=== PATIENT | male | born 1940 | race Caucasian/White ===

== ENCOUNTER → 2018-09-18 09:44 | Outpatient (BNVA) | payer MEDICARE, SELFPAY | PROVIDERS: PCP Family Medicine; Referring Provider Family Medicine; Visit Provider Orthopaedic Surgery | DX: M17.0 Bilateral primary osteoarthritis of knee (principal) | CPT/HCPCS: 20610; 99211; 99213; J3304; J3490; J7318 ==

== ENCOUNTER 2018-11-17 09:18 | Outpatient (CLI) | payer MEDICARE, SELFPAY ==
[2018-11-17 09:50] LABS: Abs Immature Grans 0.02 k/cumm (0.0-0.09); Absolute Basophil Count 0.03 k/cumm (0.0-0.2); Absolute Eosinophil Count 0.27 k/cumm (0.0-0.7); Absolute Lymphocyte Count 0.69 k/cumm (1.2-3.4); Absolute Monocyte Count 0.45 k/cumm (0.11-0.7); Absolute Neutrophil Count 3.29 k/cumm (1.2-6.7); Basophils % 0.6; Eosinophils % 5.7; HCT 43.9 % (40.0-50.0); HGB 14.6 g/dL (13.5-17.5); Immature Grans % 0.4; Lymphocytes % 14.5; Mean Corp. HGB Concentration 33.3 g/dL (32.0-36.0); Mean Corpuscular Hemoglobin 30.2 pg (27.0-33.0); Mean Corpuscular Volume 90.7 fL (80-95); Monocytes % 9.5; Neutrophils % 69.3; Platelet Count 171 x1000/uL (130-400); RBC 4.84 m/cumm (4.50-6.00); RBC Distribution Width 13.6 % (11.8-14.1); White Blood Cell Count 4.75 k/cumm (4.4-10.8)
[2018-11-17 10:49] LABS: Iron 93 ug/dL (50-175); Total Iron Binding Capacity 319 ug/dL (250-450); Transferrin Sat 29 % (20-55)
[2018-11-17 11:18] LABS: ALT 26 U/L (12-78); AST 19 U/L (15-37); Albumin 3.5 g/dL (3.4-5.0); Alkaline Phosphatase 114 U/L (46-116); Anion Gap 6.8 mmol/L (3-11); BUN 16 mg/dL (7-18); Bilirubin, Total 0.5 mg/dL (0.2-1.0); CO2 30.2 mmol/L (21.0-32.0); CREATININE 1.05 mg/dL (0.70-1.30); Chloride 104 mmol/L (98-107); Cholesterol 227 mg/dL (50-200); Ferritin 275 ng/mL (8-388); Glucose 94 mg/dL (70-100); HDL Cholesterol 65 mg/dL (40-60); LDL CHOLESTEROL 142 mg/dL (<100); Potassium 4.4 mmol/L (3.5-5.1); Sodium 141 mmol/L (136-145); T4 7.3 ug/dL (4.5-12.5); TSH 2.32 uIU/mL (0.358-3.74); Triglyceride 110 mg/dL (30-150); Vitamin B12 829 pg/mL (193-986)
[2018-11-17 11:19] LABS: Folate > 20.0 ng/mL (8.6-20.0)
[2018-11-17 11:38] LABS: FREE T4 0.93 ng/dL (0.76-1.46)
[2018-11-17 17:16] LABS: T3,Free 3.3 pg/ml (2.8-5.3)
[2018-11-17 17:30] LABS: T3, Total 120 ng/dl (97-169)
[2018-11-19 15:46] LABS: Testosterone, Free 5.72 ng/dL (3.08-11.3); Testosterone, Total 381 ng/dL (240-950)
== END 2018-11-17 09:38 ==
PROVIDERS: PCP Family Medicine; Visit Provider Nurse Practitioner Psychiatric/Mental Health
DX: F33.1 Major depressive disorder, recurrent, moderate (principal); Z79.899 Other long term (current) drug therapy; R79.89 Other specified abnormal findings of blood chemistry
CPT/HCPCS: 36415; 80053; 80061; 82306; 83721; 84402; 84403; 82607; 82728; 82746; 83540; 83550; 84436; 84439; 84443; 84480; 84481; 85025

== ENCOUNTER 2019-02-13 02:08 | Outpatient (CLI) | payer MEDICARE, SELFPAY ==
--- NOTE | 2019-02-13 13:00 | ETT_ITS ---
*[facility]* *[facility]* [address] [place] [address] Stress Electrocardiography Sukhdeep protocol Date of study: 02/13/2019 *PATIENT PRESENTATION* Height: 180.3cm (71in) Blood Pressure: Weight: 77.3kg (170lb) BSA: 1.97m^2 Referring physician: Aj Pendleton Ordering physician: Aj Pendleton Impressions: Normal study after maximal exercise. Summary: 1. Stress: The target heart rate was achieved. Indication: R06.02. History: REASON FOR VISIT: PT REPORTS HIS PCP ORDERED THIS STRESS TEST BECAUSE HE IS FEELING MORE EASILY SHORT OF BREATH AND FATIGUED. HE HAS OCCASIONAL SUBSTERNAL CHEST PAINS AT NIGHT WHILE LYING IN THE BED HE STATES IT GOES AWAY WITH POSITION CHANGE. Risk factors: Dyslipidemia. Cholesterol: 227mg/dl. HDL: 65mg/dl. LDL: 142mg/dl. Triglycerides: 110mg/dl. ALLERGIES: NO KNOWN ALLERGIES. MEDICATIONS: TAMSULOSIN 0.4 MG EVERY OTHER DAY. OMEPRAZOLE 40 MG DAILY. OMEGA-3 FATTY ACIDS-FISH OIL 1 DAILY. LORAZEPAM 0.5 MG AT HS PRN. FLUOXETINE 20 MG DAILY. CYANOCOBALAMIN 1,000 MCG DAILY. CHOLECALCIFEROL 1,000 UNITS DAILY. ASPIRIN 81 MG DAILY. CENTRUM SILVER 1 CAP DAILY. Protocol: Sukhdeep protocol. Baseline ECG: SINUS BRADYCARDIA. HR 58 BPM. Stress protocol: + +---+ + !Stage !HR !BP (mmHg) ! + +---+ + !Baseline supine !58 !180/80 (113)! + +---+ + !Baseline standing !80 !142/78 (99) ! + +---+ + !Stage I; 1.7mph, 10degrees; 3 min !103!180/86 (117)! + +---+ + !Stage II; 2.5mph, 12degrees; 3 min!119!188/80 (116)! + +---+ + !Peak stress !129! ! + +---+ + !Recovery; 3 min !88 !208/90 (129)! + +---+ + !Recovery; 6 min !70 !176/78 (111)! + +---+ + * Stress results: Maximal heart rate during stress was 129bpm (91% of maximal predicted heart rate). The maximal predicted heart rate was 141bpm. The target heart rate was achieved. The rate-pressure product for the peak heart rate and blood pressure was 90140hj Hg/min. Stress ECG: EXERCISE PORTION OF STRESS TEST ENDED IN 7 MINUTES DUE TO SHORTNESS OF BREATH AND FATIGUE. SYSTOLIC BLOOD PRESSURE DROP OF 38 mmHg FROM SUPINE TO STANDING. NORMAL HEART RATE RESPONSE TO EXERCISE. MAX HR = 129 % OF TARGET = 91 OCCASIONAL PVCs. OCCASIONAL VENTRICULAR COUPLETS. OCCASIONAL PACs. APPROXIMATE METS ACHIEVED = 8.[address] SEGMENT CHANGES AVERAGE FUNCTIONAL CAPACITY FOR EXERCISE. Study data: Vladimir Black MD supervised and was readily available during the procedure. This study was interpreted by [facility]. Study status: Routine. Consent: The risks, benefits, and alternatives to the procedure were explained to the patient and informed consent was obtained. Procedure: Initial setup. A baseline ECG was recorded. Surface ECG leads and manual cuff blood pressure measurements were monitored. Heart sounds: Normal. Lung sounds: Normal. Treadmill exercise testing was performed using the Sukhdeep protocol. Study completion: The patient tolerated the procedure well and was discharged from the lab. Discharge: The patient left the laboratory in stable condition. Birthdate: Patient birthdate: 1940. Sex: Gender: male. Study date: Study date: 02/13/2019. Study time: 00:01 AM. Signature Documentation: The Stress ECG portion of this study was interpreted by Vladimir Black MD. Electronically signed by Vladimir Black 02/13/2019 14:57
== END 2019-02-13 02:28 ==
PROVIDERS: PCP Family Medicine; Visit Provider Family Medicine
DX: R06.02 Shortness of breath (principal); R07.89 Other chest pain; R53.83 Other fatigue; E78.5 Hyperlipidemia, unspecified
CPT/HCPCS: 93016; 93018; 93017

== ENCOUNTER 2019-02-17 01:15 | Outpatient (RCR) | payer MEDICARE, SELFPAY ==
[2019-02-17] MEDS: Normal Saline Flush 10 ML SYR IVP (07:14)
[2019-02-17] MEDS: Cosyntropin 0.25 MG VIAL IV (07:14)
== END 2019-02-17 23:59 | disposition home or self-care (01) ==
LOC: INF 01:15
PROVIDERS: PCP Family Medicine; Visit Provider Family Medicine
DX: E24.3 Ectopic ACTH syndrome (principal)
CPT/HCPCS: 36415; 82533; 87206; 96374; J0834

== ENCOUNTER → 2019-03-24 08:49 | Outpatient (BNVA) | payer MEDICARE, SELFPAY | PROVIDERS: PCP Family Medicine; Referring Provider Family Medicine; Visit Provider Orthopaedic Surgery | DX: M17.11 Unilateral primary osteoarthritis, right knee (principal); M25.561 Pain in right knee; M17.12 Unilateral primary osteoarthritis, left knee; M25.562 Pain in left knee | CPT/HCPCS: 20610; 99211; J7318 ==

== ENCOUNTER → 2019-08-11 08:03 | Outpatient (BNVA) | payer MEDICARE, SELFPAY | PROVIDERS: PCP Family Medicine; Referring Provider Family Medicine; Visit Provider Urology | DX: N40.1 Benign prostatic hyperplasia with lower urinary tract symptoms (principal); N13.8 Other obstructive and reflux uropathy | CPT/HCPCS: 51798; 81003; 99204; 99215 ==

== ENCOUNTER → 2019-11-13 09:33 | Outpatient (BNVA) | payer MEDICARE, SELFPAY | PROVIDERS: PCP Family Medicine; Referring Provider Family Medicine; Visit Provider Student in an Organized Health Care Education/Training Program | DX: M17.11 Unilateral primary osteoarthritis, right knee (principal); M17.12 Unilateral primary osteoarthritis, left knee | CPT/HCPCS: 99214 ==

== ENCOUNTER 2019-11-20 16:27 | Outpatient (CLI) | payer MEDICARE, SELFPAY ==
[2019-11-20 18:28] LABS: Ferritin 315 ng/mL (26-388)
== END 2019-11-20 16:47 ==
PROVIDERS: PCP Family Medicine; Visit Provider Internal Medicine Sleep Medicine
DX: M25.50 Pain in unspecified joint (principal)
CPT/HCPCS: 36415; 82728

== ENCOUNTER 2020-03-17 03:39 | Outpatient (CLI) | payer MEDICARE, SELFPAY ==
[2020-03-17 12:22] LABS: HCT 40.2 % (40.0-50.0); HGB 13.4 g/dL (13.5-17.5); Mean Corp. HGB Concentration 33.3 g/dL (32.0-36.0); Mean Corpuscular Hemoglobin 30.5 pg (27.0-33.0); Mean Corpuscular Volume 91.4 fL (80-95); Mean Platelet Volume 9.3 fL (8.0-11.0); Platelet Count 189 x1000/uL (130-400); White Blood Cell Count 4.32 k/cumm (4.4-10.8)
[2020-03-17 13:39] LABS: ALT 28 U/L (16-63); AST 22 U/L (15-37); Albumin 3.8 g/dL (3.4-5.0); Alkaline Phosphatase 90 U/L (46-116); Anion Gap 2.4 mmol/L (3-11); BUN 17 mg/dL (7-18); Bilirubin, Total 0.6 mg/dL (0.2-1.0); CO2 31.6 mmol/L (21.0-32.0); CREATININE 1.25 mg/dL (0.70-1.30); Calcium 8.9 mg/dL (8.5-10.1); Chloride 104 mmol/L (98-107); Estimated GFR 55.57 (mL/min/1.73m2); Glucose 91 mg/dL (74-106); Sodium 138 mmol/L (136-145); TSH (W/Ref FT4) 1.27 uIU/mL (0.36-3.74); Total Protein 7.1 g/dL (6.4-8.2)
[2020-03-18 09:03] LABS: Iron 72 ug/dL (65-175)
[2020-03-18 09:33] LABS: Ferritin 330 ng/mL (26-388); Vitamin B12 996 pg/mL (193-986)
== END 2020-03-17 03:59 ==
PROVIDERS: PCP Family Medicine; Visit Provider Family Medicine
DX: D64.9 Anemia, unspecified (principal); R53.83 Other fatigue
CPT/HCPCS: 36415; 80053; 85027; 82607; 82728; 83540; 84443

== ENCOUNTER 2020-03-21 11:11 | Outpatient (CLI) | payer MEDICARE, SELFPAY ==
--- NOTE | 2020-03-21 10:45 | DI.RAD_ITS ---
EXAM: XR KNEE RT 4V AP,LAT,SATHISH,PAT CLINICAL HISTORY: eval R knee pain, popping out TECHNIQUE: COMPARISON: CR LEFT KNEE 3 VIEW COMPLETE from 02/20/2013 FINDINGS: Four views of each knee were obtained. On the right, there is moderate narrowing of lateral tibiofemoral cartilaginous joint space and mild narrowing of medial tibiofemoral cartilaginous joint space. There are moderate marginal osteophytes involving all 3 joints of the knee. There is a probable small knee joint effusion. On the left there is mild narrowing of medial tibiofemoral cartilaginous joint space. The remaining joint spaces are fairly well maintained. Slight marginal osteophyte formation noted at multiple site s. IMPRESSION: Degenerative changes of both knees as described above, right greater than left, the most marked leal es are at the lateral tibiofemoral joint on the right.
== END 2020-03-21 11:31 ==
PROVIDERS: PCP Family Medicine; Referring Provider Family Medicine; Visit Provider Student in an Organized Health Care Education/Training Program
DX: M25.561 Pain in right knee (principal); M25.562 Pain in left knee; M17.0 Bilateral primary osteoarthritis of knee; M25.461 Effusion, right knee; M17.11 Unilateral primary osteoarthritis, right knee; M17.12 Unilateral primary osteoarthritis, left knee
CPT/HCPCS: 73562; 99213; 73564

== ENCOUNTER 2020-05-24 01:41 | Outpatient (CLI) | payer MEDICARE, SELFPAY ==
[2020-05-24 13:01] LABS: HCT 43.7 % (40.0-50.0); HGB 14.2 g/dL (13.5-17.5); MCH 29.7 pg (27.0-33.0); MCHC 32.5 % (32.0-36.0); MCV 91.4 fL (80-95); MPV 9.1 fL (8.0-11.0); Platelet Count 169 10^3/uL (130-400); RBC 4.78 10^6/uL (4.36-5.78); RDW 13.2 % (11.8-14.1); RDW-SD 45.1 fL; WBC 5.17 10^3/uL (4.4-10.8)
[2020-05-24 13:52] LABS: BUN 16 mg/dL (7-18); CREATININE 1.17 mg/dL (0.70-1.30); Calcium 9.6 mg/dL (8.5-10.1); Chloride 105 mmol/L (98-107); Estimated GFR 59.98 (mL/min/1.73m2); Glucose 95 mg/dL (74-106); Potassium 4.1 mmol/L (3.5-5.1); Sodium 140 mmol/L (136-145)
== END 2020-05-24 02:01 ==
PROVIDERS: PCP Family Medicine; Visit Provider Family Medicine
DX: R53.81 Other malaise (principal)
CPT/HCPCS: 36415; 80048; 85027

== ENCOUNTER → 2020-05-26 11:14 | Outpatient (BNVA) | payer MEDICARE, SELFPAY | PROVIDERS: PCP Family Medicine; Referring Provider Family Medicine; Visit Provider Nurse Practitioner Adult Health | DX: G56.01 Carpal tunnel syndrome, right upper limb (principal); G56.21 Lesion of ulnar nerve, right upper limb; I10 Essential (primary) hypertension | CPT/HCPCS: 95909; 99203; 99214 ==

== ENCOUNTER → 2020-06-30 09:19 | Outpatient (BNVA) | payer MEDICARE, SELFPAY | PROVIDERS: PCP Family Medicine; Referring Provider Family Medicine; Visit Provider Student in an Organized Health Care Education/Training Program | DX: G56.21 Lesion of ulnar nerve, right upper limb (principal); G56.01 Carpal tunnel syndrome, right upper limb; I10 Essential (primary) hypertension; Z11.59 Encounter for screening for other viral diseases | CPT/HCPCS: 99214 ==

== ENCOUNTER 2020-07-18 07:23 | Outpatient (CLI) | payer MEDICARE, SELFPAY ==
[2020-07-19 17:24] LABS: COVID-19 RT-PCR Result NEGATIVE (Negative)
== END 2020-07-18 07:43 ==
PROVIDERS: Student in an Organized Health Care Education/Training Program; PCP Family Medicine; Visit Provider Family Medicine
DX: Z11.59 Encounter for screening for other viral diseases (principal)
CPT/HCPCS: U0003

== ENCOUNTER 2020-08-05 08:23 | Outpatient (CLI) | payer MEDICARE, SELFPAY ==
[2020-08-06 12:39] LABS: COVID-19 RT-PCR Result NEGATIVE (Negative)
== END 2020-08-05 08:43 ==
PROVIDERS: PCP Family Medicine; Visit Provider Student in an Organized Health Care Education/Training Program
DX: Z11.59 Encounter for screening for other viral diseases (principal); Z01.818 Encounter for other preprocedural examination
CPT/HCPCS: U0003

== ENCOUNTER 2020-08-09 09:10 | Day surgery (SDC) | payer MEDICARE, SELFPAY ==
[2020-08-09] VITALS (8 sets, daily range): BP systolic 88–209; BP diastolic 54–94; PULSE 48–63; RESP 10–18; TEMP 36.2–36.6; O2SAT 95–96
[2020-08-09] MEDS: Lactated Ringers 1,000 ML 80 ML IV ×2 (09:51→13:13)
[2020-08-09] MEDS: ceFAZolin 2 GM/50 ML BAG IVPB (12:40)
--- NOTE | 2020-08-09 13:46 | PDOC.DSDIS_ITS ---
Discharge Plan Disposition Patient Disposition: HOME Condition: Good Discharge Details Reason For Visit: Right Carpal And Cubital Tunnel Syndrome Attending Provider: Yann Begum Primary Care Provider: Aj Pendleton Home Meds and New Rx's Prescriptions: New acetaminophen 500 mg tablet 500 mg PO Q6H PRN (Reason: pain) Qty: 30 RF: 3 hydrocodone-acetaminophen 5-325 mg tablet 1 tab PO Q6H PRN PRN (Reason: pain) Qty: 8 RF: 0 ibuprofen 600 mg tablet 600 mg PO TID PRNQty: 40 RF: 3 Continued omeprazole 40 mg capsule,delayed release(DR/EC) 40 mg PO BID RF: 0 magnesium oxide 400 mg magnesium tablet 800 mg PO DAILY RF: 0 vitamin B complex Capsule 2 cap PO DAILY RF: 0 mirtazapine [Remeron] 15 mg tablet 15 mg PO DAILY Qty: 90 RF: 3 tamsulosin 0.4 mg capsule 0.4 mg PO DAILY Qty: 90 RF: 3 lorazepam 1 mg tablet 0.5 mg PO HS PRN (Reason: sleep) Qty: 30 RF: 1 Fish Oil 340-1,000 mg capsule 2 cap PO DAILY RF: 0 cholecalciferol (vitamin D3) [Vitamin D3] 50 mcg (2,000 unit) capsule 2,000 unit PO DAILY RF: 0 fluoxetine 40 mg capsule 40 mg PO DAILY Qty: 90 RF: 0 Centrum Silver 1 EACH tablet 1 cap PO DAILY RF: 0 Discharge Instructions Additional Instructions: Activity: You should stay in the sling for the first 2 weeks. You may come out of the sling for gentle motion and hygiene but should largely remain in the sling to allow the incision site to heal. Gentle motion of the elbow, hand, wrist, and fingers is okay and encouraged after the first few days, but no repetitive activites nor heavy lifting. You may apply ice. Medications: - You should take Tylenol and Ibuprofen around the clock. - You have been prescribed Hydrocodone for breakthrough pain. Dressings: - The initial surgical dressing should stay in place for 3 days. It may then be removed and kept clean and dry. You should cover with a light gauze dressing. - You may shower after 3 days and get the wound wet. Follow-up: 10 days Referrals: Yann Begum MD [ [facility] STAFF PHYSICIAN] - Equipment/Supplies: Sling Activity:: Elevate Remove Dressings/Wound Care:: 72 hours Shower/Bathe:: 72 hours Diet:: As Tolerated Discharge Orders Discharge Orders: Discharge Order (Routine); Ordered 08/09/20 Ordered By: Yann Begum DS: Diagnosis Discharge Diagnosis (1) Cubital tunnel syndrome on right: Status: Chronic (2) Right carpal tunnel syndrome: Status: Chronic
--- NOTE | 2020-08-09 16:52 | ROE_ITS ---
Date of service: 08/09/20 Time of Service: 13:52 Operative Note Operative Note DATE OF PROCEDURE: 08/09/20 PRE-OP DIAGNOSIS: Right Recurrent Carpal Tunnel and Right Cubital Tunnel Syndrome POST-OP DIAGNOSIS: same PROCEDURE: Right Endoscopic Carpal Tunnel Release and Right Cubital Tunnel Decompression SURGEON: Yann Begum ADULT SPECIALIST: Stephania Elizalde ANESTHESIA: GETA ESTIMATED BLOOD LOSS: 10 PATHOLOGY: none sent TOURNIQUET TIME: 25 COMPLICATIONS: None Patient was transported to: PACU Patient's condition: stable Indications: Dima is a 80 year old male who has had symptoms of carpal and cubital tunnel syndrome. Nonoperative treatment options had been trialed. Nerve conduction studies identified the carpal and cubital tunnel as the point of compression. Given failure of nonoperative treatments and persistent symptoms, I offered operative intervention. I reviewed the technical details of a carpal tunnel release and cubital tunnel decompression with possible anterior subcutaneous transposition. I reviewed the risk of the procedure to include bleeding, infection, pain, stiffness, tendon instability, damage to the superficial radial nerve, and complete release. Despite these risks, the patient elected to proceed. Findings: The carpal tunnel was release with a standard endoscopic technique without difficulty and excellent visualization. The carpal tunnel itself within the palm is not particularly tight. However, there is significant scarring within the entry to the carpal tunnel and around the median nerve which was released. There was a tightened cubital tunnel. The ulnar nerve was release from the first motor branch distally through the [place] proximally. Procedure Description: Dima was greeted in the preoperative holding area where the correct side was identified and marked. The consent was reviewed with the patient and signed. The history and physical was updated. All questions were answered. He was taken back to the operating room. The patient was placed into the supine position on the operating room table with the right arm on an arm board. A nonsterile tourniquet was placed high onto the arm, into the axilla. All bony prominences were well padded. Prophylactic antibiotics in the form of Cefazolin were administered. The right arm was then prepped with Chloraprep and draped in a standard fashion with stockinette and extremity drape. A timeout to confirm correct identity, side and site, procedure, allergies, anesthesia, and medical concerns was performed. The surgical site was marked in the volar wrist creases in line with the radial border of the fourth ray. This area was anesthetized with approximately 6cc of 1% Lidocaine. The limb was then exsanguinated with an Esmarch. The skin was incised with a 15 blade, approximately 1cm. The skin only was cut and the deeper tissue was dissected bluntly with a tenotomy scissor, avoiding passing nerve and venous structures. The fascia was penetrated and opened bluntly. A two-prong skin hook was placed under this proximal fascial edge. A series of hamate finders were used to identify and dilate the carpal tunnel. Synovial elevator was used to free synovial attachments to the underside of the transverse carpal ligament. My thumb was kept in the palm to pauly the distal extent of the carpal tunnel and correctly position the hand. The Microaire endoscope was inserted without difficulty and without resistance. Excellent visualization showed horizontally running fibers. The distal extent was visualized and the end of the scope palpated with the thumb. There was not much resistance in this area and the level was more superficial, likely representing the result of the previous release. The blade was elevated and withdrawn from distal to proximal. The recurrent TCL was split into two flaps. The scope was withdrawn and the proximal aspect of the carpal tunnel was grossly inspected. There was notable scar in this area and this was released with scissors. After doing this, the median nerve visible and had no apparent point of compression or compressing tissue. The antebrachial fascia at the level of the wrist was then freed from the overlying skin and then the underlying median nerve with blunt dissection. This was transected longitudinally for about 3cm proximal to the wrist incision. The wound was then irrigated with easy flow of irrigant distally and proximally. The incision was closed with a single 4-0 Nylon suture. The wound was dressed with Xeroform, Gauze, Kerlix. The surgical site was for the elbow was anesthetized with 0.25% bupivacaine with epinephrine. A 6 cm incision was made curvilinearly around the medial elbow. The skin was incised only. The deep tissue and subcutaneous fat was dissected with a tenotomy scissors trying to protect any branches of the medial antebrachial cutaneous nerve. Any branches that were identified were retracted out of the way. The ulnar nerve was palpated and identified. A small window into the cubital tunnel, sheath overlying the nerve, was created and the nerve was able to be palpated with the [place]. A Metzenbaum scissor was then used to open up the sheath starting with Mcgregor's ligament. I then worked distal over the ulnar nerve releasing any constraints against the nerve all the way to the fascia of the FCU muscle belly. This muscle belly was bluntly all the way down to the first motor branch of the ulnar nerve and the overlying fascia was incised. Likewise starting there at the lateral epicondyle, I proceeded to work proximally to release any constraints over the ulnar nerve. This was taken all the way to the arc[place] of [place]. The medial intermuscular septum was also palpated and any sharp edges against the ulnar nerve were resected and released. After fully releasing the nerve it was inspected visually. I was also able to palpate the nerve fully and reach one finger up into the proximal and distal aspects to make sure there were no constraints against the nerve. A freer elevator was also used to slide easily against the ulnar nerve without any points of constriction. The arm was then taken through range of motion. The ulnar nerve did not sublux/dislocate out of its groove behind the lateral epicondyle. Therefore, no transposition was performed. The tourniquet was then deflated. Any areas of bleeding were cauterized with bipolar electrocautery. The wound was thoroughly irrigated. The deep tissue was closed with a 3-0 Vicryl. The skin was closed with a 4-0 nylon. The wound was dressed with Xeroform, 4 x 4's, ABD, Kerlix and an Sesar wrap. Dima was placed into a sling. Dima was transferred back to the PACU in a stable condition.
== END 2020-08-09 16:05 | disposition home or self-care (01) ==
PROVIDERS: PCP Family Medicine; Visit Provider Student in an Organized Health Care Education/Training Program
PROC: 01N54ZZ Release Median Nerve, Percutaneous Endoscopic Approach (ICD-10-PCS; CPT 29848; principal; 2020-08-09 11:00)
PROC: (CPT 64718; 2020-08-09 11:00)
DX: G56.01 Carpal tunnel syndrome, right upper limb (principal); G56.21 Lesion of ulnar nerve, right upper limb; I10 Essential (primary) hypertension; D64.9 Anemia, unspecified
CPT/HCPCS: 64718; 29848; J0690; J1100; J2001; J2405; J2704; L3650

== ENCOUNTER → 2020-08-18 08:11 | Outpatient (BNVA) | payer MEDICARE, SELFPAY | PROVIDERS: PCP Family Medicine; Referring Provider Family Medicine; Visit Provider Student in an Organized Health Care Education/Training Program | DX: Z47.89 Encounter for other orthopedic aftercare (principal); G56.21 Lesion of ulnar nerve, right upper limb; G56.01 Carpal tunnel syndrome, right upper limb; I10 Essential (primary) hypertension ==

== ENCOUNTER → 2020-09-05 08:45 | Outpatient (BNVA) | payer MEDICARE, SELFPAY | PROVIDERS: PCP Family Medicine; Referring Provider Family Medicine; Visit Provider Student in an Organized Health Care Education/Training Program | DX: Z47.89 Encounter for other orthopedic aftercare (principal); G56.21 Lesion of ulnar nerve, right upper limb; I10 Essential (primary) hypertension ==

== ENCOUNTER → 2020-10-03 08:38 | Outpatient (BNVA) | payer MEDICARE, SELFPAY | PROVIDERS: PCP Family Medicine; Referring Provider Family Medicine; Visit Provider Student in an Organized Health Care Education/Training Program | DX: Z47.89 Encounter for other orthopedic aftercare (principal); R20.0 Anesthesia of skin ==

== ENCOUNTER → 2020-10-04 13:45 | Outpatient (BNVA) | payer MEDICARE, SELFPAY | PROVIDERS: PCP Family Medicine; Referring Provider Family Medicine; Visit Provider Urology | DX: N40.1 Benign prostatic hyperplasia with lower urinary tract symptoms (principal); N13.8 Other obstructive and reflux uropathy | CPT/HCPCS: 99213 ==

== ENCOUNTER → 2020-11-07 13:51 | Outpatient (BNVA) | payer MEDICARE, SELFPAY | PROVIDERS: PCP Family Medicine; Referring Provider Student in an Organized Health Care Education/Training Program; Visit Provider Nurse Practitioner Adult Health | DX: G56.21 Lesion of ulnar nerve, right upper limb (principal); G56.01 Carpal tunnel syndrome, right upper limb; Z98.890 Other specified postprocedural states | CPT/HCPCS: 95908; 99213; 99215; G2212 ==

== ENCOUNTER → 2020-12-09 08:49 | Outpatient (BNVA) | payer MEDICARE, SELFPAY | PROVIDERS: PCP Family Medicine; Referring Provider Family Medicine; Visit Provider Student in an Organized Health Care Education/Training Program | DX: G56.21 Lesion of ulnar nerve, right upper limb (principal); G56.01 Carpal tunnel syndrome, right upper limb | CPT/HCPCS: 99214 ==

== ENCOUNTER 2021-03-17 09:45 | Inpatient (IN) | payer MEDICARE, SELFPAY ==
[2021-03-17] VITALS (22 sets, daily range): BP systolic 145–185; BP diastolic 73–93; PULSE 61–81; RESP 12–22; TEMP 36.2–37.6; O2SAT 95–99
--- NOTE | 2021-03-17 09:45 | DI.CT_ITS ---
Exam(s) CT BRAIN NECK CTA EXAM: CT BRAIN NECK CTA CLINICAL HISTORY: facial droop, slurred speech, dysphagia, r/o cva. TECHNIQUE: Imaging Protocol: Axial CT angiography was performed with multi-slice acquisition and mu lti-planar and/or 3D reconstructions. CONTRAST MATERIAL: Intravenous: Omnipaque 350 Contrast volume:structured data in ml COMPARISON: No exams were available for comparison FINDINGS: CT angiography of the cervical cranial region was performed according to the usual protocol with intr avenous infusion of 100 cc of Omnipaque 350.. Initial noncontrast scanning of the head is unremarkable. Visualized lung apices are clear. Visualized portions of thoracic aorta and pulmonary arterial circul ation are unremarkable. There is no evidence of a cervical mass or adenopathy. The tracheal laryngeal structures appear intact. There is calcified atheromatous plaque in the carotid bifurcations bilaterally. Otherwise the common carotid arteries are within normal limits bilaterally. The proximal internal carotid arteries show calcified plaque bilaterally. No stenosis on the right. On the left, there is less than 50 percent luminal diameter stenosis of the proximal internal caroti d artery. There is a right dominant vertebral artery circulation with a diminutive left vertebral artery which terminates at the C1 level. Intracranial portions of the internal carotid arteries appear normal with no evidence of aneurysm, st enosis, or dissection. Intracranial right vertebral artery and basilar artery appear normal with no evidence of aneurysm, st enosis or dissection. No aneurysm identified in the region of the [id number]. The anterior, middle, and posterior cer ebral arteries and major branches appear intact with no evidence of aneurysm, stenosis, or dissection . The right posterior cerebral artery is supplied mainly by the posterior communicating artery on th e right. No enhancing brain lesion identified. IMPRESSION: Less than 50 percent luminal diameter stenosis of proximal left internal carotid artery. No other si gnificant findings. RADIATION DOSE DELIVERED: 2,157.44mGy.cmTotal DLP 2,157.44mGy.cm Total DLP DATA REPOSITORY: All CT scans at this facility are submitted to the National Radiology Data Registry (NRDR) Dose Index Registry (DIR) with the [employer] ([employer]). RADIATION OPTIMIZATION: All CT scans at this facility use at least one of these dose optimization te chniques: automated exposure control; mA and/or kV adjustment per patient size (includes targeted exa ms where dose is matched to clinical indication); or iterative reconstruction.
--- NOTE | 2021-03-17 09:52 | W.ED.GENAD ---
Discharge Plan Disposition Patient Disposition: [facility] INPATIENT Condition: Stable Discharge Details Clinical Impression: TIA (transient ischemic attack), Facial droop, Dysphasia, Dysphagia Admit Date/Time: 03/17/21 12:34 Admit Provider: Arvind Nelson Attending Provider: Arvind Nelson Primary Care Provider: Aj Pendleton ED Provider: Trupti Ruby Discharge Data Discharge Date/Time-TO BE ENTERED AT DEPARTURE: 03/17/21 13:49 Medical Decision Making 0950 -- 81-year-old male with a history of hypertension, BPH, anxiety, depression migraines presents for slurred speech, facial droop and difficulty swallowing over the past 20 minutes Patient noted to have a right-sided facial droop with slurred speech. Moving all extremities. Stroke alert called. Patient sent directly to radiology. CTA head and neck notes a less than 50% stenosis in the left ICA but no other acute findings. Chest x-ray negative for acute findings. Heart rate 70s to 80s on the monitor and regular. Systolic blood pressure 140s to 170s. He is afebrile and appears nontoxic. After return from radiology, patient endorses that his dysphagia and slurred speech is improving. As patient is outside the therapeutic window and his symptoms are improving, he does not meet criteria for TPA. 1100 -- Labs reviewed and unremarkable. Troponin negative. We will plan for admission for TIA. MRI brain ordered. Case discussed with hospitalist. Would like neuro consult for recommendations. Requested echocardiogram which was ordered. BP 156/84. 1230 -- Disscussed with [facility] neurology who found that likely the source of his TIA is cardiovascular. Recommend adding Plavix and statin to his medication regimen. Agrees with plan for 325 mg aspirin here and to continue 81 mg daily. Recommend Plavix load with 300 mg x 1 now and then starting tomorrow 75 mg once daily. Recommend adding Lipitor 40 mg daily. Discussed recommendations with hospitalist who accepts patient for admission. 1330 -- MRI after admission noted IMPRESSION: Cerebral atrophy. Question tiny peripheral cortical areas of acute or subacute infarction in left fronto temporal region. Medical Records Medical records reviewed: Yes I reviewed the patient's medical records. Imaging Data Radiologic Study: Radiologist's impression: CT BRAIN NECK CTA CLINICAL HISTORY: facial droop, slurred speech, dysphagia, r/o cva. TECHNIQUE: Imaging Protocol: Axial CT angiography was performed with multi-slice acquisition and multi-planar and/or 3D reconstructions. CONTRAST MATERIAL: Intravenous: Omnipaque 350 Contrast volume:structured data in ml COMPARISON: No exams were available for comparison FINDINGS: CT angiography of the cervical cranial region was performed according to the usual protocol with intravenous infusion of 100 cc of Omnipaque 350.. Initial noncontrast scanning of the head is unremarkable. Visualized lung apices are clear. Visualized portions of thoracic aorta and pulmonary arterial circulation are unremarkable. There is no evidence of a cervical mass or adenopathy. The tracheal laryngeal structures appear intact. There is calcified atheromatous plaque in the carotid bifurcations bilaterally. Otherwise the common carotid arteries are within normal limits bilaterally. The proximal internal carotid arteries show calcified plaque bilaterally. No stenosis on the right. On the left, there is less than 50 percent luminal diameter stenosis of the proximal internal carotid artery. There is a right dominant vertebral artery circulation with a diminutive left vertebral artery which terminates at the C1 level. Intracranial portions of the internal carotid arteries appear normal with no evidence of aneurysm, stenosis, or dissection. Intracranial right vertebral artery and basilar artery appear normal with no evidence of aneurysm, stenosis or dissection. No aneurysm identified in the region of the [id number]. The anterior, middle, and posterior cerebral arteries and major branches appear intact with no evidence of aneurysm, stenosis, or dissection. The right posterior cerebral artery is supplied mainly by the posterior communicating artery on the right. No enhancing brain lesion identified. IMPRESSION: Less than 50 percent luminal diameter stenosis of proximal left internal carotid artery. No other significant findings. XR CHEST 2V PA LATERAL CLINICAL HISTORY: possible stroke, r/o acute disease TECHNIQUE: 2D digital imaging was performed. COMPARISON: CR CHEST 2 VIEWS PA,LAT from 05/08/2017 FINDINGS: The heart is not enlarged. The lungs are clear and well expanded. No pleural effusion seen. Mediastinal contours appear intact. IMPRESSION: Normal chest. MR BRAIN WO CLINICAL HISTORY: slurred speech, dysphagia, r/o acute cva TECHNIQUE: Multiplanar multisequence MRI of the brain was performed. COMPARISON: No exams were available for comparison FINDINGS: There is mild generalized cerebral atrophy consistent with the patient's age. There are multiple periventricular areas of abnormal signal seen on FLAIR and T2 weighted imaging sparing the corpus callosum, consistent with microvascular ischemic changes. The orbital and temporal bone structures appear intact as does the pituitary. Diffusion weighted imaging shows a few questionable small areas of signal abnormality in the peripheral left fronto temporal cortex. These probably show matching areas of decreased signal on ADC map, although the small size makes this difficult to confirm. The findings are questionable but are suggestive of tiny peripheral cortical infarcts, probable watershed type lesion., Susceptibility weighted imaging shows no evidence of intracranial hemorrhage. There is normal flow void in the [place] vasculature. IMPRESSION: Cerebral atrophy. Question tiny peripheral cortical areas of acute or subacute infarction in left fronto temporal region. Lab Data Lab results reviewed: Yes I reviewed the patient's lab results. ECG Data Attestation: I personally reviewed and interpreted this ECG (s) as follows: Interpretation: EKG done on the floor and noted: rate of 76, sinus, lafb, no stemi, nondiagnositc. HPI General Mode of arrival: ambulatory. Date/Time Provider Initiated Documentation: 03/17/21 09:46. Limitations to Documentation: no limitations. Information obtained by: patient. HPI Narrative: Patient is an 81-year-old male with a history of anxiety, depression, migraine and hypertension presents for slurred speech, facial droop and difficulty swallowing since 730 this morning. Patient originally presented to the ED with his who stated that 20 minutes ago patient was noted to have slurred speech, difficulty swallowing and facial droop. She then states that when he awoke this morning and was lying in bed she noted that he had slurred speech around 730. She states she thought it was because he had just woken up but then when he walked out of the bedroom around 8:30 AM she noted that he had more pronounced facial droop, slurred speech and then he complained of difficulty swallowing. Patient denies any headache, extremity weakness or numbness, blurry vision, dizziness, chest pain or shortness of breath. Related Data Home Medications Medication Instructions Recorded Confirmed Centrum Silver 1 cap PO DAILY 09/21/13 03/17/21 cholecalciferol (vitamin D3) 50 2,000 unit PO DAILY cap 04/05/20 03/17/21 mcg (2,000 unit) capsule magnesium oxide 800 mg PO DAILY tab 04/05/20 03/17/21 omega-3 fatty acids-fish oil 340 2 cap PO DAILY cap 04/05/20 03/17/21 mg-1,000 mg capsule vitamin B complex 2 cap PO DAILY cap 04/05/20 03/17/21 tamsulosin 0.4 mg capsule 0.4 mg PO DAILY #90 tab-cap 06/01/20 03/17/21 acetaminophen 500 mg tablet 500 mg PO Q6H PRN #30 tab 08/09/20 03/17/21 tadalafil 5 mg tablet 5 - 20 mg PO DAILY PRN #30 tab 08/30/20 03/17/21 lorazepam 1 mg tablet 0.5 mg PO HS PRN #30 tab 02/08/21 03/17/21 mirtazapine 15 mg tablet 7.5 mg PO DAILY #45 tab 02/08/21 03/17/21 fluoxetine 40 mg capsule 40 mg PO DAILY #90 cap 03/17/21 03/17/21 Previous Rx's Medication Instructions Recorded tamsulosin 0.4 mg capsule 0.4 mg PO DAILY #90 tab-cap 06/01/20 acetaminophen 500 mg tablet 500 mg PO Q6H PRN #30 tab 08/09/20 tadalafil 5 mg tablet 5 - 20 mg PO DAILY PRN #30 tab 08/30/20 lorazepam 1 mg tablet 0.5 mg PO HS PRN #30 tab 02/08/21 mirtazapine 15 mg tablet 7.5 mg PO DAILY #45 tab 02/08/21 fluoxetine 40 mg capsule 40 mg PO DAILY #90 cap 03/17/21 Allergies Allergy/AdvReac Type Severity Reaction Status Date / Time bupropion [From Wellbutrin] AdvReac Severe constipation, Verified 02/08/21 13:20 made him worse Review of Systems All systems reviewed & are unremarkable except as noted in HPI and below Constitutional Constitutional: Reports as per HPI, Denies chills and Denies fever(s) Eyes Eyes: Denies blurry vision ENT Ears, Nose, Mouth, and Throat: Denies dizziness, Denies sore throat and Denies throat swelling Cardiovascular Cardiovascular: Denies chest pain and Denies dyspnea Respiratory Respiratory: Denies cough and Denies dyspnea Gastrointestinal Gastrointestinal: Denies abdominal pain, Denies diarrhea and Denies vomiting Genitourinary Genitourinary: Denies hematuria and Denies dysuria Musculoskeletal Musculoskeletal: Denies back pain and Denies numbness Integumentary/Breasts Skin/Breast: Denies lesions and Denies rash Neurologic Neurologic: Reports abnormal speech, Denies dizziness, Reports localized weakness and Denies numbness Allergic/Immunologic Allergic/Immunologic: Denies throat swelling [facility] Medical History (Updated 03/17/21 @ 17:28 by Tahmina Peter NP) Benign prostatic hyperplasia continue on tamsulosin Depressive disorder Diverticulosis of colon without diverticulitis DNI (do not intubate) DNR (do not resuscitate) Dysarthria Erectile dysfunction Fatigue Hypertension Migraine Mitral valve regurgitation (09/19/92) F/U with PCP Dr. Pendleton Numbness of right hand Palliative care patient Ventricular tachycardia (03/07/15) by event monitor 03/03/15 10 beat run - pt asymptomatic F/U with PCP Dr. Pendleton Vertigo Surgical History Colonoscopy - MAC (11/25/17) 2002, 2006 Cubital tunnel syndrome on right s/p ulnar nerve decompression DOS: 08/09/2020 History of carpal tunnel surgery of right wrist (~1981) Open knee repair (~2003) 2003;RIGHT KNEE; cartilage removed. 10/02; UNSURE OF PROCEDURE Right carpal tunnel syndrome S/p ECTR DOS: 08/09/2020 Family History Mother Neoplasm BREAST Stroke Father No problems noted. Sister No problems noted. Brother No problems noted. Grandfather No problems noted. Grandfather No problems noted. Grandmother No problems noted. Grandmother No problems noted. Son No problems noted. Daughter No problems noted. Daughter No problems noted. Social History Smoking/Tobacco Use Status: Never Smoking risk assessment performed?: Yes Alcohol Intake: never Drug use: Never Substance use type: does not use Household members: spouse Housing: house Number of Children: 3 number of grandchildren: 4 Current gender identity: male What is your relationship status?: Panel score (0-1 are the most socially isolated patients): 1 What type of physical activity do you participate in: walking Seatbelt use: always Do you feel safe at home: Yes Do you feel safe in your relationship?: Yes Exam Const General: cooperative and no acute distress HENMT Head: normal to inspection Face and sinus: normal facial exam Eyes General: appearance normal, both eyes and all related structures Pupils: PERRL EOM: EOM intact bilaterally Neck Neck: normal visual inspection and No submandibular swelling Lymphatic: no lymphadenopathy noted Chest Chest: normal inspection of the chest and no tenderness Resp Effort & Inspection: normal respiratory effort and able to speak in complete sentences Auscultation: clear to auscultation bilaterally Cardio Rate: regular rate Rhythm: regular rhythm GI Inspection: normal to inspection Palpation: soft, not firm, not rigid and nontender Auscultation: normal bowel sounds Skin General skin exam: no rashes or lesions noted Neuro General: patient alert, patient awake, patient oriented x3, moves all extremities and no meningeal signs Cranial Nerves: facial strength abnormal (Right facial droop) Cognition: normal cognition Speech: abnormal speech slurred Motor: muscle tone normal throughout, strength 5/5 throughout and no pronator drift Sensory Exam: no sensory deficits noted Extrem General: normal to inspection, full ROM, capillary refill normal, no calf tenderness bilaterally and no edema Psych Appearance: grossly normal Mental Status: mental status grossly normal Speech and Movement: speech and movement normal Affect: normal affect Critical Care Time Critical Care Time Critical Care Time: Yes Total Critical Care Time: 45 Attestation: I spent 45 minutes of critical care time with this patient. This does not include time spent on separately reported billable procedures.
[2021-03-17 10:02] LABS: Abs Immature Grans 0.02 10^3/uL (0.0-0.06); Absolute Basophil Count 0.04 10^3/uL (0.0-0.2); Absolute Eosinophil Count 0.12 10^3/uL (0.0-0.7); Absolute Monocyte Count 0.49 10^3/uL (0.1-0.8); Absolute Neutrophil Count 2.34 10^3/uL (1.2-6.7); Eosinophils % 2.9; HGB 14.2 g/dL (13.5-17.5); Immature Grans % 0.5; Lymphocytes % 26.8; MCH 30.3 pg (27.0-33.0); MCHC 33.8 % (32.0-36.0); MCV 89.6 fL (80-95); MPV 8.7 fL (8.0-11.0); Monocytes % 11.9; Neutrophils % 56.9; Nucleated RBC 0 %; Platelet Count 157 10^3/uL (130-400); RBC 4.69 10^6/uL (4.36-5.78); RDW 13.9 % (11.8-14.1); RDW-SD 45.1 fL; WBC 4.11 10^3/uL (4.4-10.8)
[2021-03-17] MEDS: Omnipaque 350 MG/ML 100 ML BTL IV (10:12)
[2021-03-17] MEDS: Normal Saline - Diluent 50 ML VIAL IV (10:14)
[2021-03-17] MEDS: Normal Saline Flush 10 ML SYR IVP (10:14)
[2021-03-17 10:17] LABS: PTT Activated 24.1 sec (21.0-27.5); Prothrombin Time 10.5 sec (9.3-11.0)
[2021-03-17 10:19] LABS: ALT 34 U/L (16-63); AST 26 U/L (15-37); Albumin 3.8 g/dL (3.4-5.0); Alkaline Phosphatase 112 U/L (46-116); Anion Gap 10.5 mmol/L (3-11); BUN 19 mg/dL (7-18); Bilirubin, Total 0.7 mg/dL (0.2-1.0); CO2 26.5 mmol/L (21.0-32.0); CREATININE 1.2 mg/dL (0.70-1.30); Calcium 8.9 mg/dL (8.5-10.1); Chloride 106 mmol/L (98-107); Estimated GFR 58.11 (mL/min/1.73m2); Glucose 112 mg/dL (74-106); Magnesium 2.1 mg/dL (1.8-2.4); Potassium 4.2 mmol/L (3.5-5.1); Sodium 143 mmol/L (136-145); Total Protein 7.5 g/dL (6.4-8.2)
[2021-03-17 10:20] LABS: Troponin I < 0.05 ng/mL (<0.06)
--- NOTE | 2021-03-17 10:23 | DI.RAD_ITS ---
Exam(s) XR CHEST 2V PA LATERAL EXAM: XR CHEST 2V PA LATERAL CLINICAL HISTORY: possible stroke, r/o acute disease TECHNIQUE: 2D digital imaging was performed. COMPARISON: CR CHEST 2 VIEWS PA,LAT from 05/08/2017 FINDINGS: The heart is not enlarged. The lungs are clear and well expanded. No pleural effusion seen. Mediastin al contours appear intact. IMPRESSION: Normal chest. RADIATION DOSE DELIVERED: Total DLP
--- NOTE | 2021-03-17 10:45 | DI.MRI_ITS ---
Exam(s) MR BRAIN WO EXAM: MR BRAIN WO CLINICAL HISTORY: slurred speech, dysphagia, r/o acute cva TECHNIQUE: Multiplanar multisequence MRI of the brain was performed. COMPARISON: No exams were available for comparison FINDINGS: There is mild generalized cerebral atrophy consistent with the patient's age. There are multiple periventricular areas of abnormal signal seen on FLAIR and T2 weighted imaging spa ring the corpus callosum, consistent with microvascular ischemic changes. The orbital and temporal bone structures appear intact as does the pituitary. Diffusion weighted imaging shows a few questionable small areas of signal abnormality in the peripher al left fronto temporal cortex. These probably show matching areas of decreased signal on ADC map, a lthough the small size makes this difficult to confirm. The findings are questionable but are sugges tive of tiny peripheral cortical infarcts, probable watershed type lesion., Susceptibility weighted imaging shows no evidence of intracranial hemorrhage. There is normal flow void in the [place] vasculature. IMPRESSION: Cerebral atrophy. Question tiny peripheral cortical areas of acute or subacute infarction in left fronto temporal regio n. DATA REPOSITORY:
--- NOTE | 2021-03-17 11:00 | DI.US_ITS ---
APPROVED REPORT EXAM: Comprehensive 2D, Doppler, and color-flow Echocardiogram Patient Location: ER Room/Bed: 1 [place] Automatic: Kenna Moreland RDCS (AE) Indications: TIA Other Information Study Quality: Adequate. Technically limited study due to inability to position patient. Exam done [place].. Conclusion Left Ventricle : The left ventricle is normal size. Left ventricular systolic function is borderline. There is normal left ventricular wall thickness. There is normal LV segmental wall motion. The left ventricular diastolic function is normal. LVEF is 50-55%. Right Ventricle : Right ventricle is not well visualized. Right ventricular systolic function could n ot be assessed. The RVSP is 21.2 mmHg. Atria : The left atrium size is normal. The right atrium size is normal. Mitral Valve : Mild mitral annular calcification. Trace to mild mitral regurgitation. No evidence of mitral valve stenosis. Great Vessels : The aortic root is normal in size. The ascending aorta is normal in size. Aortic arch is normal in caliber. IVC is normal in size and collapses >50% with inspiration. See the remainder of study for further details. Wall motion Left Ventricle The left ventricle is normal size. Left ventricular systolic function is borderline. There is normal left ventricular wall thickness. There is normal LV segmental wall motion. The left ventricular diast olic function is normal. There is no ventricular septal defect visualized. LVEF is 50-55%. Right Ventricle Right ventricle is not well visualized. Right ventricular systolic function could not be assessed. Th e RVSP is 21.2 mmHg. Atria The left atrium size is normal. The right atrium size is normal. The interatrial septum is intact wit h no evidence for an atrial septal defect. Aortic Valve The aortic valve is normal in structure. There is no aortic valvular stenosis. No aortic regurgitatio n is present. Mitral Valve Mild mitral annular calcification. No evidence of mitral valve stenosis. Trace to mild mitral regurgi tation. Tricuspid Valve The tricuspid valve is normal in structure. There is no tricuspid valve stenosis. Trace tricuspid reg urgitation. Pulmonic Valve Pulmonic valve is not well visualized. There is no pulmonic valvular stenosis. There is no pulmonic v alvular regurgitation. Great Vessels The aortic root is normal in size. The ascending aorta is normal in size. Aortic arch is normal in ca liber. IVC is normal in size and collapses >50% with inspiration. Pericardium There is no pericardial effusion. 2D Dimensions IVSD d PLAX 0.91 cm M: 0.6-1.2 LV Vol A2C d MOD 66.3 mL LVPW d PLAX 0.91 cm M: 0.6 - 1.2 LV Vol A4C d MOD 133.7 mL LVID d PLAX 5.04 cm M: 4.2 - 5.8 LV EF A4C MOD 55.5 % LVDs 3.50 cm M: 2.5 - 4.0 LV EF A2C MOD 50.6 % Ao Root d 3.25 cm M: 3.1 - 3.7 LV EF Biplane MOD 51.9 % Ao Asc Diam d 3.34 cm M: 2.6 - 3.4 SV 48.84 mL LV EF Teichholz 56.8 % SV Index 24.76 mL/m2 LVEF (Rodriguez's) 51.86 % M: 52 - 72 LV Volume 70.96 mL M: 62 - 150 LV Volume Index 36.02 mL/m2 M: 34 - 74 LV Vol Biplane MOD 94.2 mL FS 29.85 % M-Mode TAPSE 2.42 cm (M/F) >1.7 LV Diastology MV E' medial 0.073 (>0.07 m/s) E/A Ratio 0.9 LV E/e MED 10.25 (<14) MV E Vmax 0.75 (0.4-1.3 m/s) MV E' lateral 0.077 (>0.1 m/s) MV A Vmax 0.85 (0.4-1.3 m/s) LV E/e LAT 9.80 (<14) MV E/A Ratio 0.87 MV E/E' medial 10.28 MV E/E' lateral 9.84 Aortic Valve LVOT Area 3.64 cm2 AoV Area Vmax 2.21 cm2 LVOT Vmax 0.78 m/s AoV Area/ BSA (Vmax) 1.12 cm2/m2 LVOT Mean Navin. 0.52 m/s BRANT Mean Navin. 2.35 cm2 LVOT Peak Grad 2.4 mmHg BRANT Mean Navin. Index 1.19 cm2/m2 LVOT Mean Grad 1.2 mmHg LVOT VTI 0.158 m LVOT Diam s 2.15 cm AoV Vmax 1.29 m/s Velocity Ratio 0.60 AoV Mean Navin. 0.80 m/s AoV Peak Grad 6.6 mmHg LVOT SV 57.34 mL AoV Mean Grad 2.9 mmHg AoV VTI 0.228 m AoV Area VTI 2.52 cm2 AoV Area/ BSA (VTI) 1.28 cm/m2 Mitral Valve MV DT 225 (160-240 msec) MR Vmax 5.50 m/s MV PHT 65 msec MR VTI 1.695 m MV Area PHT 3.37 cm2 MR Peak Grad 121.0 mmHg MV VTI 0.399 m MR Mean Grad 95.0 mmHg MV VTI Annulus 0.418 m MV Area VTI 1.51 (4.0-6.0 cm2) Pulmonary Valve PV Vmax 0.93 (0.5-1.5 m/s) RVOT Peak Gr. 2.36 mmHg PV Peak Grad 3.5 mmHg RVOT Mean Gr. 1.00 mmHg PV Mean Grad 1.7 mmHg RVOT VTI 0.152 m PV VTI 0.168 m RVOT Vmax 0.77 m/s Tricuspid Valve TR Peak Grad 18.1 mmHg TR Vmax 2.13 m/s RA Pressure 3.00 mmHg RVSP (TR) 21.2 mmHg
[2021-03-17] MEDS: Aspirin 325 MG TAB PO (11:11)
[2021-03-17 11:13] LABS: Bilirubin Negative (Negative); Blood Negative (Negative); Clarity Clear (Clear); Glucose Negative (Negative); Ketones Negative (Negative); Leukocyte Esterase Negative (Negative); Nitrite Negative (Negative); Urobilinogen 0.2 EU/dL (Up TO 0.2)
[2021-03-17] MEDS: Clopidogrel 300 MG TAB PO (12:39)
[2021-03-17] MEDS: Atorvastatin 40 MG TAB PO ×2 (12:40→14:55)
[2021-03-17 13:29] LABS: Source Nasal/Nares
--- NOTE | 2021-03-17 14:18 | W.PM.HP.N ---
Date of service: 03/17/21 Time of Service: 14:18 Assessment and Plan Assessment and plan (1) CVA (cerebral vascular accident): Start date: 03/17/21 Start time: 14:53 Status: Chronic Assessment and plan: Onset per 1 hour 20 mins to arrival, with facial drooping, slurred speech and dysphagia. CTA in ED with Left sided ICA 50% stenosis. MRI with CVA, echo with EF 50-55%. [facility] neuro contacted by ED told to give plavix, asa, statin. 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 Rehab. PT to decide on patient status discussed with Dr. lott History of Present Illness History of Present Illness Chief Complaint: CVA Narrative: 81 y.o male with PMH of HTN, BPH, anxiety, depression, migraines, presents to [facility] ED for slurred speech, facial droop and dysphagia onset 20 mins prior to arrival. CTA head with less than 50% stenosis ICA left no other acute findings, CXR negative. Symptoms starting improving in the ED, therefore TPA was not given. Labs with slight BUN elevation of 19, other arredondo negative. He was asked to be admitted for further management. MRI revealed cerebral atrophy with tiny peripheral coritcal areas of acute or subacute infarct to temporal region. Echo with borderline systolic function, EF 50-55%, RVSP 21.2, Mild mitral annular calcification, trace to mild mitral regurgitation. He is being admitted to telemetry, NPO until speech eval. IVF, Plavix daily, atorvastatin daily per [facility], will check lipid panel, A1c in am with repeat labs. Review of Systems All systems reviewed & are unremarkable except as noted in HPI and below PFSH Medical History Benign prostatic hyperplasia continue on tamsulosin Depressive disorder Diverticulosis of colon without diverticulitis Erectile dysfunction Fatigue Hypertension Migraine Mitral valve regurgitation (09/19/92) F/U with PCP Dr. Pendleton Numbness of right hand Ventricular tachycardia (03/07/15) by event monitor 03/03/15 10 beat run - pt asymptomatic F/U with PCP Dr. Pendleton Vertigo Surgical History Colonoscopy - MAC (11/25/17) 2002, 2006 Cubital tunnel syndrome on right s/p ulnar nerve decompression DOS: 08/09/2020 History of carpal tunnel surgery of right wrist (~1981) Open knee repair (~2003) 2003;RIGHT KNEE; cartilage removed. 10/02; UNSURE OF PROCEDURE Right carpal tunnel syndrome S/p ECTR DOS: 08/09/2020 Family History Mother Neoplasm BREAST Stroke Father No problems noted. Sister No problems noted. Brother No problems noted. Grandfather No problems noted. Grandfather No problems noted. Grandmother No problems noted. Grandmother No problems noted. Son No problems noted. Daughter No problems noted. Daughter No problems noted. Social History Smoking/Tobacco Use Status: Never Smoking risk assessment performed?: Yes Alcohol Intake: never Drug use: Never Substance use type: does not use Household members: spouse Housing: house Number of Children: 3 number of grandchildren: 4 Current gender identity: male What is your relationship status?: Panel score (0-1 are the most socially isolated patients): 1 What type of physical activity do you participate in: walking Seatbelt use: always Do you feel safe at home: Yes Do you feel safe in your relationship?: Yes Meds Allergies and Home Medications Allergies Allergy/AdvReac Type Severity Reaction Status Date / Time bupropion [From Wellbutrin] AdvReac Severe constipation, Verified 02/08/21 13:20 made him worse Home Medications Medication Instructions Recorded Confirmed Type Centrum Silver 1 cap PO DAILY 09/21/13 03/17/21 History cholecalciferol (vitamin D3) 50 2,000 unit PO DAILY cap 04/05/20 03/17/21 History mcg (2,000 unit) capsule magnesium oxide 800 mg PO DAILY tab 04/05/20 03/17/21 History omega-3 fatty acids-fish oil 340 2 cap PO DAILY cap 04/05/20 03/17/21 History mg-1,000 mg capsule vitamin B complex 2 cap PO DAILY cap 04/05/20 03/17/21 History tamsulosin 0.4 mg capsule 0.4 mg PO DAILY #90 tab-cap 06/01/20 03/17/21 Rx acetaminophen 500 mg tablet 500 mg PO Q6H PRN #30 tab 08/09/20 03/17/21 Rx tadalafil 5 mg tablet 5 - 20 mg PO DAILY PRN #30 tab 08/30/20 03/17/21 Rx lorazepam 1 mg tablet 0.5 mg PO HS PRN #30 tab 02/08/21 03/17/21 Rx mirtazapine 15 mg tablet 7.5 mg PO DAILY #45 tab 02/08/21 03/17/21 Rx fluoxetine 40 mg capsule 40 mg PO DAILY #90 cap 03/17/21 03/17/21 Rx Exam Const General: cooperative, comfortable, no acute distress and frail appearing Nutritional Appearance: average body habitus Orientation: alert, awake and oriented x3 HENMT Head: normal to inspection and atraumatic Face and sinus: abnormal facial exam, face asymmetric (right sided droop) and other Mouth: moist mucous membranes and muffled voice Other: tongue drifts to right, garbled speech Eyes General: appearance normal, both eyes and all related structures Sclera: sclerae normal Pupils: PERRL EOM: EOM intact bilaterally Neck Neck: full ROM, no lymphadenopathy and no JVD Chest Chest: normal inspection of the chest Resp Effort & Inspection: normal respiratory effort and not able to speak in complete sentences Auscultation: clear to auscultation bilaterally Cardio Jugular venous pressure: no JVD Rate: regular rate Rhythm: regular rhythm Heart Sounds: S1 normal and S2 normal GI Inspection: normal to inspection Palpation: soft and no hepatosplenomegaly Auscultation: normal bowel sounds General: deferred Skin Wounds: wounds noted (right palm) Neuro General: patient alert, patient awake, patient oriented x3, tone abnormal, moves all extremities, abnormal to light touch, pain or propio. and decrease sensation to monofilament Cranial Nerves: PERRL Cognition: abnormal cognition (can not follow all commands) Speech: abnormal speech garbled Motor: tone not normal throughout and strength not 5/5 throughout Coordination: [id number] test normal, ostp-pv-[id number] test normal and rapid alternating movement UE normal Extrem Right upper extremity: normal to inspection; ROM limited (weakness against gravity, with drift) Results Labs Result diagrams: 03/17/21 09:52 03/17/21 09:52 Labs: Laboratory Results - last 24 hr 03/17/21 03/17/21 03/17/21 09:52 09:52 09:52 WBC 4.11 L RBC 4.69 Hgb 14.2 Hct 42.0 MCV 89.6 MCH 30.3 MCHC 33.8 RDW 13.9 Plt Count 157 MPV 8.7 Immature Gran % 0.5 Neutrophils % 56.9 Lymphocytes % 26.8 Monocytes % 11.9 Eosinophils % 2.9 Basophils % 1.0 Nucleated RBC % 0 Absolute Neutrophils 2.34 Absolute Lymphocytes 1.10 L Absolute Monocytes 0.49 Absolute Eosinophils 0.12 Absolute Basophils 0.04 PT 10.5 INR 1.0 APTT 24.1 Sodium 143 Potassium 4.2 Chloride 106 Carbon Dioxide 26.5 Anion Gap 10.5 BUN 19 H Creatinine 1.2 Estimated GFR/1.73 m2 58.11 Glucose 112 H Calcium 8.9 Magnesium 2.1 Total Bilirubin 0.7 AST 26 ALT 34 Alkaline Phosphatase 112 Troponin I < 0.05 Total Protein 7.5 Albumin 3.8 Urine Color Urine Clarity Urine pH Ur Specific [place] Urine Protein Urine Ketones Urine Blood Urine Nitrite Urine Bilirubin Urine Urobilinogen Ur Leukocyte Esterase Urine Glucose COVID-19 Source 03/17/21 03/17/21 11:00 13:23 WBC RBC Hgb Hct MCV MCH MCHC RDW Plt Count MPV Immature Gran % Neutrophils % Lymphocytes % Monocytes % Eosinophils % Basophils % Nucleated RBC % Absolute Neutrophils Absolute Lymphocytes Absolute Monocytes Absolute Eosinophils Absolute Basophils PT INR APTT Sodium Potassium Chloride Carbon Dioxide Anion Gap BUN Creatinine Estimated GFR/1.73 m2 Glucose Calcium Magnesium Total Bilirubin AST ALT Alkaline Phosphatase Troponin I Total Protein Albumin Urine Color Yellow Urine Clarity Clear Urine pH 7.0 Ur Specific [place] 1.010 Urine Protein Negative Urine Ketones Negative Urine Blood Negative Urine Nitrite Negative Urine Bilirubin Negative Urine Urobilinogen 0.2 Ur Leukocyte Esterase Negative Urine Glucose Negative COVID-19 Source Nasal/nares Last Vital Signs Pulse 65 03/17/21 11:16 Resp 17 03/17/21 11:20 BP 156/84 H 03/17/21 11:16 Pulse Ox 98 03/17/21 11:20 COVID-19 Screening Have you, or household traveled for leisure in last 14 days?: No
[2021-03-17] MEDS: Normal Saline 1,000 ML 125 ML IV ×2 (14:55→22:38)
[2021-03-17] MEDS: Heparin 5,000 UNITS/ML VIAL 5000 UNITS SC ×2 (14:56→21:40)
--- NOTE | 2021-03-17 16:37 | W.PALLCONSUL ---
Date of service: 03/17/21 Time of Service: 16:40 History of Present Illness History of Present Illness Chief Complaint: CVA Narrative: Dima Norton is a very pleasant 81 year old man with a past medical history significant for HTN, migraines, BPH, depression and vertigo, who [facility] with a right sided facial droop, dysphagia, slurred speech and RUE weakness. He was found to have Cerebral atrophy and question tiny peripheral cortical areas of acute or subacute infarction in left fronto temporal region on MRI brain. He reports that this morning he could not talk or swallow, he was drooling and his right arm was weak. He did not have any difficulty with his legs. He reports that he has some difficulty talking when he is nervous at baseline. He has a stutter, he states, put it this way, when I get nervous, I cannot talk good. He feels that his speech has improved but it is still off. He is swallowing well. His right arm is still weak. He had a carpal tunnel release at [facility] 6 weeks ago and thinks that is contributing to his RUE weakness. His goal is to recover as much as possible and get home as soon as he can. He would rather not go to a rehab. We discussed CODE status, he is a DNR/DNI, he would name Christina Norton, his to be his health care agent. He wants to wait for Christina to be present to complete his COLST form. He has a strong rachel, he believes he will be taken by [place] when his time comes. He and his have been to [place] for 59 years (03/08/21). 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 Assessment and Plan Assessment and plan (1) CVA (cerebral vascular accident): Status: Chronic (2) Facial droop: Status: Acute (3) Dysarthria: Status: Acute (4) DNR (do not resuscitate): Status: Acute (5) DNI (do not intubate): Status: Acute (6) Palliative care patient: Status: Acute Assessment and plan: Dima Norton is a very pleasant 81 year old man with a past medical history significant for HTN, migraines, BPH, depression and vertigo, who presented to [facility] today with a right sided facial droop, dysphagia, slurred speech and RUE weakness. He was found to have Cerebral atrophy and question tiny peripheral cortical areas of acute or subacute infarction in left fronto temporal region on MRI brain. His symptoms have improved. He continues to have dysarthria, his RUE is slightly weaker than the left. He is hoping to continue to improve and get home as soon as he can. He has some speech difficulties at baseline, including stuttering. We discussed CODE STATUS, he is a DNR/DNI, he has named Maura, his , to be his health care agent. He did not want to complete a COLST without his present. He is agreeable to follow up with Palliative as an outpatient. Review of Systems Narrative: He denies SOB, coughing or wheezing. He denies CP/pressure or palpitations. No N/V/D. He denies pain. All systems reviewed & are unremarkable except as noted in HPI and below [facility] Medical History (Updated 03/17/21 @ 17:28 by Tahmina Peter NP) Benign prostatic hyperplasia continue on tamsulosin Depressive disorder Diverticulosis of colon without diverticulitis DNI (do not intubate) DNR (do not resuscitate) Dysarthria Erectile dysfunction Fatigue Hypertension Migraine Mitral valve regurgitation (09/19/92) F/U with PCP Dr. Pendleton Numbness of right hand Palliative care patient Ventricular tachycardia (03/07/15) by event monitor 03/03/15 10 beat run - pt asymptomatic F/U with PCP Dr. Pendleton Vertigo Surgical History Colonoscopy - MAC (11/25/17) 2002, 2006 Cubital tunnel syndrome on right s/p ulnar nerve decompression DOS: 08/09/2020 History of carpal tunnel surgery of right wrist (~1981) Open knee repair (~2003) 2003;RIGHT KNEE; cartilage removed. 10/02; UNSURE OF PROCEDURE Right carpal tunnel syndrome S/p ECTR DOS: 08/09/2020 Family History Mother Neoplasm BREAST Stroke Father No problems noted. Sister No problems noted. Brother No problems noted. Grandfather No problems noted. Grandfather No problems noted. Grandmother No problems noted. Grandmother No problems noted. Son No problems noted. Daughter No problems noted. Daughter No problems noted. Social History Smoking/Tobacco Use Status: Never Smoking risk assessment performed?: Yes Alcohol Intake: never Drug use: Never Substance use type: does not use Household members: spouse Housing: house Number of Children: 3 number of grandchildren: 4 Current gender identity: male What is your relationship status?: Panel score (0-1 are the most socially isolated patients): 1 What type of physical activity do you participate in: walking Seatbelt use: always Do you feel safe at home: Yes Do you feel safe in your relationship?: Yes Exam Narrative Exam Narrative: General: very pleasant 81 year old man, sitting up in bed, speech is slurred, he is alert and oriented, pleasant and talkative. HEENT: nomocephalic, atraumatic, PERRL, makes eye contact, mucous membranes moist. Neck: supple, no JVD. Cardiovascular: heart sounds regular, nontachycardic. Respiratory: respirations appear even and unlabored, lung sounds are clear throughout. GI: +BS, abdomen soft, nontender on palpation, nondistended. Extremities: no edema. Neuro: + right facial droop, speech is slurred, RUE slightly weaker than LUE, R hand grasp slightly weaker than left. Results Last Vital Signs Temp 36.4 C L 03/17/21 15:54 Pulse 70 03/17/21 15:54 Resp 18 03/17/21 15:54 BP 184/91 H 03/17/21 15:54 Pulse Ox 97 03/17/21 15:54 Labs Result diagrams: 03/17/21 09:52 03/17/21 09:52 Labs: Laboratory Results - last 24 hr 03/17/21 03/17/21 03/17/21 09:52 09:52 09:52 WBC 4.11 L RBC 4.69 Hgb 14.2 Hct 42.0 MCV 89.6 MCH 30.3 MCHC 33.8 RDW 13.9 Plt Count 157 MPV 8.7 Immature Gran % 0.5 Neutrophils % 56.9 Lymphocytes % 26.8 Monocytes % 11.9 Eosinophils % 2.9 Basophils % 1.0 Nucleated RBC % 0 Absolute Neutrophils 2.34 Absolute Lymphocytes 1.10 L Absolute Monocytes 0.49 Absolute Eosinophils 0.12 Absolute Basophils 0.04 PT 10.5 INR 1.0 APTT 24.1 Sodium 143 Potassium 4.2 Chloride 106 Carbon Dioxide 26.5 Anion Gap 10.5 BUN 19 H Creatinine 1.2 Estimated GFR/1.73 m2 58.11 Glucose 112 H Calcium 8.9 Magnesium 2.1 Total Bilirubin 0.7 AST 26 ALT 34 Alkaline Phosphatase 112 Troponin I < 0.05 Total Protein 7.5 Albumin 3.8 Urine Color Urine Clarity Urine pH Ur Specific [place] Urine Protein Urine Ketones Urine Blood Urine Nitrite Urine Bilirubin Urine Urobilinogen Ur Leukocyte Esterase Urine Glucose COVID-19 Source 03/17/21 03/17/21 11:00 13:23 WBC RBC Hgb Hct MCV MCH MCHC RDW Plt Count MPV Immature Gran % Neutrophils % Lymphocytes % Monocytes % Eosinophils % Basophils % Nucleated RBC % Absolute Neutrophils Absolute Lymphocytes Absolute Monocytes Absolute Eosinophils Absolute Basophils PT INR APTT Sodium Potassium Chloride Carbon Dioxide Anion Gap BUN Creatinine Estimated GFR/1.73 m2 Glucose Calcium Magnesium Total Bilirubin AST ALT Alkaline Phosphatase Troponin I Total Protein Albumin Urine Color Yellow Urine Clarity Clear Urine pH 7.0 Ur Specific [place] 1.010 Urine Protein Negative Urine Ketones Negative Urine Blood Negative Urine Nitrite Negative Urine Bilirubin Negative Urine Urobilinogen 0.2 Ur Leukocyte Esterase Negative Urine Glucose Negative COVID-19 Source Nasal/nares
[2021-03-17 17:07] LABS: Troponin I < 0.05 ng/mL (<0.06)
[2021-03-17 18:41] LABS: COVID-19 PCR Negative (Negative)
[2021-03-18] VITALS (10 sets, daily range): BP systolic 139–184; BP diastolic 77–91; PULSE 53–80; RESP 12–18; TEMP 36.5–37.4; O2SAT 95–100
[2021-03-18] MEDS: Heparin 5,000 UNITS/ML VIAL 5000 UNITS SC ×3 (05:59→21:31)
[2021-03-18] MEDS: Normal Saline 1,000 ML 125 ML IV ×3 (06:40→22:01)
[2021-03-18 06:48] LABS: Abs Immature Grans 0.01 10^3/uL (0.0-0.06); Absolute Basophil Count 0.02 10^3/uL (0.0-0.2); Absolute Eosinophil Count 0.11 10^3/uL (0.0-0.7); Absolute Lymphocyte Count 0.74 10^3/uL (1.2-3.4); Absolute Monocyte Count 0.49 10^3/uL (0.1-0.8); Absolute Neutrophil Count 2.74 10^3/uL (1.2-6.7); Basophils % 0.5; Eosinophils % 2.7; HCT 37.4 % (40.0-50.0); HGB 12.6 g/dL (13.5-17.5); Immature Grans % 0.2; MCH 29.9 pg (27.0-33.0); MCHC 33.7 % (32.0-36.0); MCV 88.6 fL (80-95); MPV 9.1 fL (8.0-11.0); Monocytes % 11.9; Neutrophils % 66.7; Nucleated RBC 0 %; Platelet Count 147 10^3/uL (130-400); RBC 4.22 10^6/uL (4.36-5.78); RDW 13.8 % (11.8-14.1); RDW-SD 44.6 fL; WBC 4.11 10^3/uL (4.4-10.8)
[2021-03-18 06:56] LABS: Hemoglobin A1C 5.4 % (<5.7)
[2021-03-18 07:04] LABS: BUN 15 mg/dL (7-18); CREATININE 1.1 mg/dL (0.70-1.30); Calcium 8.3 mg/dL (8.5-10.1); Calculated LDL 135 mg/dL (<100); Chloride 109 mmol/L (98-107); Cholesterol 204 mg/dL (<200); Glucose 87 mg/dL (74-106); HDL Cholesterol 55 mg/dL (40-60); Magnesium 1.9 mg/dL (1.8-2.4); Potassium 3.7 mmol/L (3.5-5.1); Sodium 143 mmol/L (136-145); Triglyceride 72 mg/dL (<150)
[2021-03-18 07:13] LABS: Troponin I < 0.05 ng/mL (<0.06)
--- NOTE | 2021-03-18 09:57 | INITIAL_ITS ---
- If Service Date Differs Date of service: 03/18/21 Time of Service: 09:57 Care Management Initial Assess REASON FOR HOSPITALIZATION:: CVA. PAST MEDICAL HISTORY/PAST SURGICAL HISTORY:: Medical History: Benign prostatic hyperplasia - continue on tamsulosin,. Depressive disorder, Diverticulosis of colon without diverticulitis, Erectile dysfunction, Fatigue, Hypertension, Migraine, Mitral valve regurgitation (09/19/92) - F/U with PCP Dr. Pendleton, Numbness of right hand, Ventricular tachycardia (03/07/15) - by event monitor 03/03/15 - 10 beat run - pt asymptomatic - F/U with PCP Dr. Pendleton, and Vertigo. Surgical History: Colonoscopy - MAC (11/25/17) - 2002, 2006, Cubital tunnel syndrome on right - s/p ulnar nerve decompression - DOS: 08/09/2020, History of carpal tunnel surgery of right wrist (~1981) - Open, knee repair (~2003) - 2003;RIGHT KNEE; cartilage removed. - 10/02; UNSURE OF PROCEDURE, and Right carpal tunnel syndrome - S/p ECTR - DOS: 08/09/2020. PREVIOUS FUNCTIONAL STATUS/SOCIAL/FAMILY SUPPORTS:: Dima lives in [facility] with his , Christina. They have 2 daughters and 1 son. Daughter Monae lives in [facility] and is supportive of her parents. 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 Jared drives and is independent at baseline. CURRENT FUNCTIONAL STATUS:: Jared is sitting in a chair when CM comes to meet with him. His , Christina, is present in the room. He readily engages in conversation and expresses his desire to return home as soon as possible. CM will continue to follow. ADVANCE DIRECTIVES:: On file; , Christina Norton, is appointed as Health Care Agent. Has patient been provided with info about the portal/API?: Yes Did the patient sign up for the portal?: No CODE STATUS:: DNR/DNI INSURANCE COVERAGE / FINANCIAL ISSUES:: [facility] [employer] and Medicare. CURRENT HOME/COMMUNITY SERVICES/EQUIPMENT:: None. PRIMARY CARE PHYSICIAN:: Aj Pendleton MD. POTENTIAL DISCHARGE NEEDS:: Follow up appointments with PCP and neurologist. PATIENT/FAMILY EDUCATION NEEDS:: Discharge instructions, limitations, medications, and follow up plan of care, including Ask Me Three and self management. ANTICIPATED BARRIERS TO DISCHARGE:: None anticipated at this time. TRANSPORTATION:: Via private vehicle with his . PLAN:: Jared is not currently interested in short-term rehab. Anticipate he will be discharged home when medically cleared by provider. PT and OT evaluations will determine the need for Home Health services. Jared will follow up with his PCP, neurologist, and discharge plan of care as directed. His , Christina, will drive him home via private vehicle when ready. CM will continue to follow.
--- NOTE | 2021-03-18 10:22 | PT.INIE ---
Date of service: 03/18/21 Time of Service: 10:22 PT Notes Visit Reasons: Cerebrovascular accident Physical Therapy Inpatient Initial Evaluation Date: 03/18/2021 Referring Doctor: Vickie Armando NP PT Orders: PT CONSULT: Extended stay weakness. Fall safety assessment. CVA. Precautions: Fall. Standard. Activity as tolerated. Patient Profile/Admitting Diagnosis: Cyrus is an 81-year-old male who presented to the ED on 03/17/2021 with right-sided facial droop, swallowing difficulty, and slurred speech. He is diagnosed with cerebrovascular accident, facial droop, and dysarthria. PMHX: Medical History Benign prostatic hyperplasia continue on tamsulosin Depressive disorder Diverticulosis of colon without diverticulitis Erectile dysfunction Fatigue Hypertension Migraine Mitral valve regurgitation (09/19/92) F/U with PCP Dr. Pendleton Numbness of right hand Ventricular tachycardia (03/07/15) by event monitor 03/03/15 10 beat run - pt asymptomatic F/U with PCP Dr. Pendleton Vertigo Surgical History Colonoscopy - MAC (11/25/17) 2002, 2006 Cubital tunnel syndrome on right s/p ulnar nerve decompression DOS: 08/09/2020 History of carpal tunnel surgery of right wrist (~1981) Open knee repair (~2003) 2003;RIGHT KNEE; cartilage removed. 10/02; UNSURE OF PROCEDURE Right carpal tunnel syndrome S/p ECTR DOS: 08/09/2020 Social History/Home Situation: Lives with in a private home with 10 steps to enter through the garage with rails on both sides. There is an alternate 1 step to the front entrance of the house. Independent with all aspects of ADLs prior to ED admission, no assistive device number adaptive equipment needed. 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 Equipment Owned/DME: None Subjective: Agreeable to PT consult. Denies headache, chest pain, and lightheadedness throughout session. Did indicate numbness on the tips of the middle and the ring finger on the R side which she emphasizes he has had from before the stroke. He explains that he had carpal tunnel surgery previously and said sensory change has been there since. Denies any falls in the past 12 months. Worries about the depression in him this new situation is causing. Objective: General Observation: IV in the right brachium. Telemetry monitoring in place. In no acute distress. Significant slurring observed. Mental Status: Alert and oriented as to person, place, time, and purpose. Able to pay attention, focus, and respond appropriately. Pain: 0/10 ROM: Right Upper Extremity: Shoulder Flexion WFL. Shoulder abduction WFL. Shoulder ER/IR WFL. Elbow flexion WFL. Forearm pronation/supination WFL. Wrist flexion WFL. Opening and closing of hand WFL. Left Upper Extremity: Shoulder Flexion WFL. Shoulder abduction WFL. Shoulder ER/IR WFL. Elbow flexion WFL. Forearm pronation/supination WFL. Wrist flexion WFL. Opening and closing of hand WFL. Pincer grasp on right side with third through fifth digit absent. Opposition of digits 3 through 5 absent. Right Lower Extremity: Hip flexion WFL. Hip abduction WFL. Hip ER/IR WFL. Knee flexion WFL. Knee extension. Ankle dorsiflexion/eversion WFL. Ankle plantarflexion/inversion WFL. Left Lower Extremity: Hip flexion WFL. Hip abduction WFL. Hip ER/IR WFL. Knee flexion WFL. Knee extension. Ankle dorsiflexion WFL. Ankle plantarflexion WFL. Strength: Right Upper Extremity: Shoulder flexors 5/5. Shoulder abductors 5/5. Shoulder ER 5/5. Shoulder IR 5/5. Forearm pronators 5/5. Forearm supinators 5/5. Elbow flexors 5/5. Elbow extensors 5/5. Environmental Health Specialist strong. Left Upper Extremity: Shoulder flexors 5/5. Shoulder abductors 5/5. Shoulder ER 5/5/ Shoulder IR 5/5. Forearm pronators 5/5. Forearm supinators 5/5. Elbow flexors 5/5. Elbow extensors 5/5. Environmental Health Specialist strong. Right Lower Extremity: Hip flexors 5/5. Hip abductors 5/5. Hip external rotators 5/5. Hip internal rotators 5/5. Knee flexors 5/5. Knee extensors 5/5. Ankle dorsiflexors/evertors 5/5. Ankle plantarflexors/invertors 5/5. Left Lower Extremity: Hip flexors 5/5. Hip abductors 5/5. Hip external rotators 5/5. HIp internal rotators 5/5. Knee flexors 5/5. Knee extensors 5/5. Ankle dorsiflexors/evertors 5/5. Ankle plantarflexors/invertors 5/5. Sensation: Numbness on middle and ring finger on the palmar aspect of distal phalanges. Bed Mobility/Transfers: Rolling independent Supine to sit independent Sit to supine independent Sit to stand supervision Stand to sit supervision Bed to chair supervision Chair to bed supervision Gait: Elevations for level surface ambulation of about 280 feet without an assistive device with full weightbearing requiring only standby assist with no gait deviation except for slowed bonny resulting from presence of IV pole. No headache. No chest pain. Denies SOB and dizziness. Balance: Static Sitting: Normal Dynamic Sitting: Normal Static Standing: Normal Dynamic Standing: Good Special Tests: Mobility Limitations Standardized Measure [facility] 6 clicks Basic Mobility Inpatient Short Form: Raw Score: 23 CMS Score: 11% deficit 4-stage balance test: Able to maintain feet together as well as semi-tandem for 10 seconds but is unable to do so with full tandem and 1 legged stance indicating risk for falling. Informed Consent/Education: Patient was instructed in purpose of PT consult and plan of care. Agreeable to proceed with established PT POC to achieve personal goals. Assessment: Strength symmetric in B UE/LE. Numbness on the palmar aspect of distal phalanges of the middle and ring fingers was preexistent to CVA occurrence and related to previous carpal tunnel surgery. Decreased opposition and pincer grasp from digits 3 through 5. Becomes mildly frustrated with slurring of speech. Will continue to work with patient with stairs training and non-level surface ambulation prior to discharge. Patient presents with clinical signs and symptoms consistent with current/admitting diagnoses that have resulted to mobility limitations, gait instability, generalized weakness, and impairment of motor control as demonstrated by the following impairment level findings: 1. Decreased strength to right DIP muscles from digits 3 through 5 on the right side 2. Impaired standing balance 3. Impaired activity tolerance 4. Limitation of joint range of motion in right third through fifth DIP joints for flexion Impairments are contributing to the following functional limitations: 1. Standby assist for all hallway ambulation without assist device Patient is assessed as a 96794 moderate complexity based on the following: History: 81-year-old male with past medical history as indicated above Examination: Demonstrable impairment in strength, balance, and mobility level with underlying impairments and functional limitations as exhibited above as well as deficit score of 11% utilizing the [facility] Mobility Inpatient Short Form Presentation: Evolving Decision Makin moderate complexity Goals: Goals X1 week 1. Sit-Stand independent 2. Stand-Sit independent 3. Bed-Chair independent 4. Chair-Bed independent 5. Independent gait on level surface with use of no assistive device for at least 1000 feet without report of pain nor dyspnea 6. Independent stair negotiation while holding onto B rails for at least 10 steps without report of pain nor dyspnea 7. Independent with home exercise program 8. Normal static and dynamic standing balance/tolerance Plan of Care/Treatment Plan: 1-2x/day, 7 days/week x 1 week. Plan of care has been reviewed with the ART SUPERVISOR providing the service under Physical Therapy direction. Initiate Physical Therapy intervention for pain management as needed, strengthening, bed mobility, transfers, gait, stairs, balance training, and use of assistive device. DISCHARGE RECOMMENDATIONS: Home when medically cleared by hospitalist. Outpatient Occupational Therapy services in order to address finger dexterity issues. TREATMENT CODE/TIME: 48937 x 20 minutes, 96103 x 14 minutes beginning at 10:22 AM. Thank you for the opportunity to participate in the care of this patient. Mindy Arreguin PT, DPT, CLT [facility] [place], [place]
[2021-03-18] MEDS: Aspirin 81 MG CHEW PO (11:37)
[2021-03-18] MEDS: FLUoxetine 20 MG CAP 40 MG PO (11:38)
[2021-03-18] MEDS: Clopidogrel 75 MG TAB PO (11:38)
[2021-03-18] MEDS: Mirtazapine 15 MG TAB 7.5 MG PO (11:39)
--- NOTE | 2021-03-18 12:30 | RT.EKG_ITS ---
APPROVED REPORT Exam: Resting ECG Reason for Exam: SVT Patient Location: I HR:76 bpm ECG Measurements Heart Rate 76 AXIS WA 194 P 54 QRSd 101 QRS -62 QT 397 T 57 QTc 448 Conclusion Sinus rhythm...normal P axis, V-rate 60- 99 Left anterior fascicular block...axis(240,-40), init forces inf Probable left ventricular hypertrophy...(RaVL+SV3)xQRSd >280
--- NOTE | 2021-03-18 15:16 | PGE_ITS ---
Date of Service Date of service: 03/18/21 Time of Service: 15:16 Assessment and Plan Assessment and plan (1) CVA (cerebral vascular accident): Start date: 03/18/21 Start time: 15:38 Status: Chronic Assessment and plan: Continues to weakness and residual from CVA He has been having bursts of SVT vs Afib, given over 24 hours since stroke and elevated HR will place on low dose BB PT/OT Neuro consult Palliative consult Bedside speech eval by nursing done, no choking, coughing with water and pills therefore he is able to have broth, popsiciles, juice, protein shakes, soda, water, will hold off on any more until speech evaluates for proper diet. He does have RUE weakness, unable to push against gravity with weaker environmental health inspector strength, RLE is weaker than left IVF infusing, will d/c in am Patient would benefit from special visitor, will be his special aid visitor, due to his lack of comprehension and diminished ability to retain information regarding information with his stroke (2) Facial droop: Start date: 03/18/21 Start time: 15:54 Status: Acute Assessment and plan: as above (3) Dysphasia: Start date: 03/18/21 Start time: 15:54 Status: Acute Assessment and plan: as above (4) Dysphagia: Start date: 03/18/21 Start time: 15:54 Status: Acute Assessment and plan: as above (5) Orthostatic hypotension: Start date: 03/18/21 Start time: 15:55 Status: Acute Assessment and plan: Dropped from 180 systolicaly to 130, he is on flomax and states only takes half a pill daily when he takes a whole one he gets dizzy. Flomax dcd, started on finasteride, will continue to do orthostatic v.s monitor BP (6) Irregular heart rate: Start date: 03/18/21 Start time: 15:58 Status: Acute Assessment and plan: Per patient has been taking nodoze daily up to 4 capsules for depression. She states he stopped taking prozac and remeron has not been working. He has had multiple runs of 15 beats of SVT vs afib. Will give low dose BB for runs of irregular HR, Spoke to about not using this medication and trialling zoloft. She was agreeable. He will be started on zoloft in the am. (7) Mood disorder: Start date: 03/18/21 Start time: 16:03 Status: Chronic Assessment and plan: as above (8) Cubital tunnel syndrome on right: Start date: 03/18/21 Start time: 15:57 Status: Chronic Assessment and plan: s/p 6 weeks [place] [facility] open area no signs of infection, numbness to 3 middle fingers this has been normal since surgery. (9) Dementia: Start date: 03/18/21 Start time: 16:06 Status: Suspected Assessment and plan: suspect dementia, states that his mentation has been declining prior to stroke but worse since stroke. He does not always follow commands, AAOx3 but does not comprehend, everything said, he was agitated last night and unable to sleep will give ambien as it is one of the safest medications for the elderly. In previous notes from neuro there is difficulty of comprehension but no diagnosis of dementia. Though this does appear worse per his could be exacerbated by CVA or change in environment. Will continue to monitor (10) DVT prophylaxis: Start date: 03/18/21 Start time: 16:04 Status: Acute Assessment and plan: heparin (11) Discharge planning issues: Start date: 03/18/21 Start time: 16:04 Status: Acute Assessment and plan: home with PT/OT vs. Rehab. PT to decide on patient status discussed with Dr. lott Subjective Subjective Patient reports: other Interval history since last seen: Continues to have right sided facial droop with tongue deviation. He was able to pass nursing bedside swallow. He can have broth, protein shake, Popsicle, juice, and water, no jello at this time until evaluated by speech. No change weakness on right upper and lower extremity. There does appear to be some cognitive delay and comprehension issues, stated this was true prior to stroke but worse since, could be due to stroke with worsening exacerbation of dementia. Neuro consult placed. At this time it would be best if he had support person due to comprehension. His will be his special support person during his stay, access, insurance licensing supervisor and clinical coordinator notified. He has not taken prozac in a long time per and remeron has not been working, he also did not sleep well. Will start on low dose zoloft and ambien at bedtime. He has been taking flomax at home per a whole capsule makes him dizzy so she takes it apart and only use half a capsule. orthostatic done today with a 30 point systolical drop from sitting to standing likely caused from flomax will switch to fineastride and trial this medication. Exam Const General: cooperative, comfortable, no acute distress and frail appearing Nutritional Appearance: average body habitus Orientation: alert, awake and oriented x3 HENMT Head: normal to inspection and atraumatic Face and sinus: abnormal facial exam, face asymmetric (right sided droop) and other Mouth: moist mucous membranes and muffled voice Eyes General: appearance normal, both eyes and all related structures Sclera: sclerae normal Pupils: PERRL EOM: EOM intact bilaterally Neck Neck: full ROM, no lymphadenopathy and no JVD Chest Chest: normal inspection of the chest Resp Effort & Inspection: normal respiratory effort and not able to speak in complete sentences Auscultation: clear to auscultation bilaterally Cardio Jugular venous pressure: no JVD Rate: regular rate Rhythm: regular rhythm Heart Sounds: S1 normal and S2 normal GI Inspection: normal to inspection Palpation: soft and no hepatosplenomegaly Auscultation: normal bowel sounds General: deferred Skin Wounds: wounds noted (right palm) Neuro General: patient alert, patient awake, patient oriented x3, tone abnormal, moves all extremities, abnormal to light touch, pain or propio. and decrease sensation to monofilament Cranial Nerves: PERRL Cognition: abnormal cognition (can not follow all commands) Speech: abnormal speech garbled Motor: tone not normal throughout and strength not 5/5 throughout Coordination: [id number] test normal, [id number] test normal and rapid alternating movement UE normal Other: does not comprehend information Extrem Right upper extremity: normal to inspection; ROM limited (weakness against gravity, with drift) Objective Last Vital Signs Temp 36.9 C 03/18/21 14:32 Pulse 73 03/18/21 14:32 Resp 12 03/18/21 14:32 BP 150/84 H 03/18/21 14:32 Pulse Ox 97 03/18/21 14:32 Laboratory Results - last 24 hr 03/17/21 03/17/21 03/18/21 13:23 16:42 06:28 WBC RBC Hgb Hct MCV MCH MCHC RDW Plt Count MPV Immature Gran % Neutrophils % Lymphocytes % Monocytes % Eosinophils % Basophils % Nucleated RBC % Absolute Neutrophils Absolute Lymphocytes Absolute Monocytes Absolute Eosinophils Absolute Basophils Sodium 143 Potassium 3.7 Chloride 109 H Carbon Dioxide 24.0 Anion Gap 10.0 BUN 15 Creatinine 1.1 Estimated GFR/1.73 m2 >= 60.00 Glucose 87 Hemoglobin A1c Calcium 8.3 L Magnesium 1.9 Troponin I < 0.05 < 0.05 Triglycerides 72 Total Cholesterol 204 H LDL Cholesterol, Calc 135 H HDL Cholesterol 55 SARS-CoV-2 (PCR) Negative 03/18/21 03/18/21 06:28 06:28 WBC 4.11 L RBC 4.22 L Hgb 12.6 L Hct 37.4 L MCV 88.6 MCH 29.9 MCHC 33.7 RDW 13.8 Plt Count 147 MPV 9.1 Immature Gran % 0.2 Neutrophils % 66.7 Lymphocytes % 18.0 Monocytes % 11.9 Eosinophils % 2.7 Basophils % 0.5 Nucleated RBC % 0 Absolute Neutrophils 2.74 Absolute Lymphocytes 0.74 L Absolute Monocytes 0.49 Absolute Eosinophils 0.11 Absolute Basophils 0.02 Sodium Potassium Chloride Carbon Dioxide Anion Gap BUN Creatinine Estimated GFR/1.73 m2 Glucose Hemoglobin A1c 5.4 Calcium Magnesium Troponin I Triglycerides Total Cholesterol LDL Cholesterol, Calc HDL Cholesterol SARS-CoV-2 (PCR)
[2021-03-18] MEDS: Metoprolol 12.5 MG TAB PO ×2 (16:01→20:24)
[2021-03-18] MEDS: Atorvastatin 40 MG TAB 80 MG PO (20:23)
[2021-03-18] MEDS: Zolpidem 5 MG TAB PO (21:29)
[2021-03-19] VITALS (8 sets, daily range): BP systolic 105–176; BP diastolic 66–92; PULSE 56–65; RESP 14–20; TEMP 36–37.3; O2SAT 96–98
[2021-03-19] MEDS: Heparin 5,000 UNITS/ML VIAL 5000 UNITS SC (05:51)
[2021-03-19] MEDS: Normal Saline 1,000 ML 125 ML IV (05:51)
[2021-03-19] MEDS: Aspirin 81 MG CHEW PO (08:37)
[2021-03-19] MEDS: Clopidogrel 75 MG TAB PO (08:37)
[2021-03-19] MEDS: Sertraline 50 MG TAB PO (08:37)
[2021-03-19] MEDS: Finasteride 5 MG TAB PO (08:37)
[2021-03-19] MEDS: Metoprolol 12.5 MG TAB PO (08:37)
[2021-03-19 09:01] LABS: Anion Gap 9.2 mmol/L (3-11); BUN 10 mg/dL (7-18); CO2 24.8 mmol/L (21.0-32.0); Calcium 8.4 mg/dL (8.5-10.1); Chloride 108 mmol/L (98-107); Glucose 133 mg/dL (74-106); Magnesium 1.8 mg/dL (1.8-2.4); Potassium 3.5 mmol/L (3.5-5.1); Sodium 142 mmol/L (136-145)
--- NOTE | 2021-03-19 10:54 | PT.INTREAT ---
Date of service: 03/19/21 Time of Service: 10:00 PT Notes Visit Reasons: Cerebrovascular accident Inpatient Physical Therapy Treatment Note [facility] Date: 03/19/2021 PRECAUTIONS: Activities as tolerated, fall SUBJECTIVE: Stated he is hungry and wants something to eat. Stated he has shuddered since he was a child. Weakness in right hand has been a problem since surgery on hand. OBJECTIVE: PAIN: No complaints of pain offered. BED MOBILITY/TRANSFERS Sit-stand: I Stand-sit: I GAIT Assistive Device: No assistive device Weight bearing: FWB Assist: SBA, and assist with IV pole Distance: 200ft x 2 Neur-re-ed: Worked on static and dynamic balance utilizing Air Ex pad with weight shifting and SLS. Had patient work on side stepping, heel to toe and step over of objects with SBA of one. Does deviate to left occasionally with dynamic activities. STAIRS:Up/ down 2 6 inch steps and 3 4 inch steps with no hand rail going up and one hand rail going down. Received SBA with this activity, without LOB. ASSESSMENT: Overall did well with ambulation and neurore-ed activities today. Does have occasional deviation to left but is able to recover without LOB. PLAN: Continue with current plan of care with focus on improved functional mobility for safety with ADLs. TREATMENT CODE/TIME: 79760 x 1, 10:00 to 10:20 (20')
--- NOTE | 2021-03-19 10:59 | CMPROGNOTE_ITS ---
- If Service Date Differs Date of service: 03/19/21 Time of Service: 10:59 Care Management Progress Note S/O: A speech consult is ordered for Saturday. Per provider note, Jared will remain on clear liquids and protein shakes until the consult has occurred and diet recommendations are made. Jared is improving but his speech continues to be garbled and his right sided facial droop remains present. CM will continue to follow. A: Jared is a 81 year old male admitted to [facility] on 03/17/2021 for CVA. P: Anticipate Jared will be discharged home with new Home Health PT when medically cleared by provider. He will follow up with his PCP, neurology, and discharge plan of care as directed. His , Christina, will drive him home via private vehicle when ready. CM will continue to support Jared, his , and discharge planning needs.
[2021-03-19] MEDS: LORazepam 0.5 MG TAB PO ×2 (11:18→21:05)
--- NOTE | 2021-03-19 13:55 | PGE_ITS ---
Date of Service Date of service: 03/19/21 Time of Service: 13:55 Assessment and Plan Assessment and plan (1) CVA (cerebral vascular accident): Start date: 03/19/21 Start time: 14:00 Status: Chronic Assessment and plan: Continues to weakness and residual from CVA, however markedly improved on right upper extremity. He was initially 2/5 strength to RUE today he is 4/5 RUE. Continue PT/OT Neuro consult Palliative consult He can continue to have clears with protein shakes until seen by speech and diet determined. IVF dcd (2) Facial droop: Start date: 03/19/21 Start time: 14:03 Status: Acute Assessment and plan: Continues to have right sided facial droop with tongue deviation and garbled speech, awaiting speech consult until can eat solids. (3) Dysphasia: Start date: 03/19/21 Start time: 14:04 Status: Acute Assessment and plan: Improving, intermittent (4) Dysphagia: Start date: 03/19/21 Start time: 14:04 Status: Acute Assessment and plan: as above (5) Orthostatic hypotension: Start date: 03/19/21 Start time: 14:05 Status: Acute Assessment and plan: History of orthostatic hypotension. however not feeling dizzy with fineastride Encourage to slowly get up from sitting to standing position and encourage slow positions movements. (6) Irregular heart rate: Start date: 03/19/21 Start time: 14:06 Status: Resolved Assessment and plan: Resolved since being on BB and stopping nodoze (7) Mood disorder: Start date: 03/19/21 Start time: 14:07 Status: Chronic Assessment and plan: Started on zoloft for depression, also some cognitive delay. (8) Cubital tunnel syndrome on right: Start date: 03/19/21 Start time: 14:07 Status: Chronic Assessment and plan: s/p 6 weeks revision from previous done by [facility] [place] Small open area no signs of infection, numbness to 3 middle fingers this has been normal since surgery. (9) Dementia: Start date: 03/19/21 Start time: 14:07 Status: Suspected Assessment and plan: suspect dementia, states that his mentation has been declining prior to stroke but worse since stroke. He does not always follow commands, AAOx3 but does not comprehend, everything said, he was agitated last night and unable to sleep will give ambien as it is one of the safest medications for the elderly. In previous notes from neuro there is difficulty of comprehension but no diagnosis of dementia. Though this does appear worse per his could be exacerbated by CVA or change in environment. Will continue to monitor (10) DVT prophylaxis: Start date: 03/19/21 Start time: 14:07 Status: Acute Assessment and plan: heparin (11) Discharge planning issues: Start date: 03/19/21 Start time: 14:07 Status: Acute Assessment and plan: home with PT/OT vs. Rehab. PT to decide on patient status discussed with Dr. lott Subjective Subjective Patient reports: no new complaints Interval history since last seen: Sitting up in chair. No complaints. He is stronger on the right side today. Drinking protein shake, Continues to have right sided facial droop with tongue deviation and garbled speech. He can go home once evaluated by speech therapy. He will be discharge home with PT. he denies CP, SOB, N/V/D. Exam Const General: cooperative, comfortable, no acute distress and frail appearing Nutritional Appearance: average body habitus Orientation: alert, awake and oriented x3 HENMT Head: normal to inspection and atraumatic Face and sinus: abnormal facial exam, face asymmetric (right sided droop) and other Mouth: moist mucous membranes and muffled voice Eyes General: appearance normal, both eyes and all related structures Sclera: sclerae normal Pupils: PERRL EOM: EOM intact bilaterally Neck Neck: full ROM, no lymphadenopathy and no JVD Chest Chest: normal inspection of the chest Resp Effort & Inspection: normal respiratory effort and not able to speak in complete sentences Auscultation: clear to auscultation bilaterally Cardio Jugular venous pressure: no JVD Rate: regular rate Rhythm: regular rhythm Heart Sounds: S1 normal and S2 normal GI Inspection: normal to inspection Palpation: soft and no hepatosplenomegaly Auscultation: normal bowel sounds General: deferred Skin Wounds: wounds noted (right palm) Neuro General: patient alert, patient awake, patient oriented x3, tone abnormal, moves all extremities, abnormal to light touch, pain or propio. and decrease sensation to monofilament Cranial Nerves: PERRL Cognition: abnormal cognition (can not follow all commands) Speech: abnormal speech garbled Motor: tone not normal throughout and strength not 5/5 throughout Coordination: [id number] test normal, [id number] test normal and rapid alternating movement UE normal Extrem Right upper extremity: normal to inspection; ROM limited (improved strength 4/5 with improved volcanologist strength) Objective Last Vital Signs Temp 37.3 C 03/19/21 11:30 Pulse 65 03/19/21 11:30 Resp 18 03/19/21 11:30 BP 114/67 03/19/21 11:30 Pulse Ox 98 03/19/21 11:30 Laboratory Results - last 24 hr 03/19/21 08:43 Sodium 142 Potassium 3.5 Chloride 108 H Carbon Dioxide 24.8 Anion Gap 9.2 BUN 10 Creatinine 1.0 Estimated GFR/1.73 m2 >= 60.00 Glucose 133 H Calcium 8.4 L Magnesium 1.8
[2021-03-19] MEDS: Potassium Chloride 20 MEQ TABCR 40 MEQ PO (15:15)
[2021-03-19 15:51] LABS: PTT Activated 24.5 sec (21.0-27.5)
[2021-03-19] MEDS: Atorvastatin 40 MG TAB 80 MG PO (21:04)
[2021-03-19] MEDS: Zolpidem 5 MG TAB PO (21:05)
[2021-03-19 22:16] LABS: PTT Activated 51.5 sec (21.0-27.5)
[2021-03-20] VITALS (8 sets, daily range): BP systolic 122–166; BP diastolic 67–86; PULSE 54–82; RESP 18; TEMP 36.6–37.1; O2SAT 97–99
[2021-03-20 07:23] LABS: HCT 36.5 % (40.0-50.0); HGB 12.3 g/dL (13.5-17.5); MCH 30.1 pg (27.0-33.0); MCHC 33.7 % (32.0-36.0); MCV 89.2 fL (80-95); MPV 9.2 fL (8.0-11.0); Platelet Count 160 10^3/uL (130-400); RBC 4.09 10^6/uL (4.36-5.78); RDW-SD 45.4 fL; WBC 7.17 10^3/uL (4.4-10.8)
[2021-03-20 07:31] LABS: Anion Gap 9.1 mmol/L (3-11); BUN 11 mg/dL (7-18); CO2 24.9 mmol/L (21.0-32.0); CREATININE 1.1 mg/dL (0.70-1.30); Calcium 8.4 mg/dL (8.5-10.1); Chloride 109 mmol/L (98-107); Glucose 103 mg/dL (74-106); Potassium 3.6 mmol/L (3.5-5.1); Sodium 143 mmol/L (136-145)
[2021-03-20 07:50] LABS: PTT Activated 59.7 sec (21.0-27.5)
--- NOTE | 2021-03-20 07:57 | PGE_ITS ---
Date of Service Date of service: 03/20/21 Time of Service: 07:57 Assessment and Plan Assessment and plan (1) CVA (cerebral vascular accident): Start date: 03/20/21 Start time: 14:53 Status: Chronic Assessment and plan: Weakness markedly improved. 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 IVF dcd (2) Facial droop: Start date: 03/20/21 Start time: 15:07 Status: Acute Assessment and plan: Continues to have right sided facial droop with tongue deviation and garbled speech, small improvement awaiting speech consult until can eat solids. (3) Dysphasia: Start date: 03/20/21 Start time: 15:07 Status: Acute Assessment and plan: Improving, intermittent (4) Dysphagia: Start date: 03/20/21 Start time: 15:08 Status: Acute Assessment and plan: as above (5) Orthostatic hypotension: Start date: 03/20/21 Start time: 15:08 Status: Chronic Assessment and plan: History of orthostatic hypotension. however not feeling dizzy with fineastride Encourage to slowly get up from sitting to standing position and encourage slow positions movements. (6) Mood disorder: Start date: 03/20/21 Start time: 15:09 Status: Chronic Assessment and plan: Started on zoloft for depression, also some cognitive delay. (7) Cubital tunnel syndrome on right: Start date: 03/20/21 Start time: 15:14 Status: Chronic Assessment and plan: s/p 6 weeks revision from previous done by [facility] Small open area no signs of infection, numbness to 3 middle fingers this has been normal since surgery. (8) Dementia: Start date: 03/20/21 Start time: 15:15 Status: Suspected Assessment and plan: suspect dementia, states that his mentation has been declining prior to stroke but worse since stroke. He does not always follow commands, AAOx3 but does not comprehend, everything said, he was agitated last night and unable to sleep will give ambien as it is one of the safest medications for the elderly. In previous notes from neuro there is difficulty of comprehension but no diagnosis of dementia. Though this does appear worse per his could be exacerbated by CVA or change in environment. Will continue to monitor (9) DVT prophylaxis: Start date: 03/20/21 Start time: 15:15 Status: Acute Assessment and plan: heparin (10) Discharge planning issues: Start date: 03/20/21 Start time: 15:15 Status: Acute Assessment and plan: home with PT/OT tomorrow discussed with Dr. Garcia Subjective Subjective Interval history since last seen: Patient doing remarkable well. Strength is becoming increasingly stronger into the RUE. RLE is equal in strength to the right. He appears in good spirits but now c/o difficulty swallowing according to his . per previous discussion over the weekend with weekend supervisor typesetting Tahmina and charge nurse Mary was named his special person per comprehension issues exacerbated by stroke with underlying dementia and after reading policy meets criteria. Will await speech and neuro for tommorrow eval, then possible discharge home tommrrow. Spoke to [facility] Neuro at this time patient is not a candidate for DOAC as he has been consistently been in SR with bursts of SVTs/AFIB not captured on EKG lasting 16 runs on 03/19 with 2 bouts 20 mins apart, none since, because he has not proven to have any afib/svt since neuro recommends 30 day event recorder asa and plavix. Echo also mild mitral annular calcification. no stenosis. He did say to defer to our neuro, for any further options once she sees patient. l Exam Const General: cooperative, comfortable, no acute distress and frail appearing Nutritional Appearance: average body habitus Orientation: alert and awake Limitations: other limitations [facility] Head: normal to inspection and atraumatic Face and sinus: abnormal facial exam, face asymmetric (right sided droop) and other Mouth: moist mucous membranes and muffled voice Eyes General: appearance normal, both eyes and all related structures Sclera: sclerae normal Pupils: PERRL EOM: EOM intact bilaterally Neck Neck: full ROM, no lymphadenopathy and no JVD Chest Chest: normal inspection of the chest Resp Effort & Inspection: normal respiratory effort and not able to speak in complete sentences Auscultation: clear to auscultation bilaterally Cardio Jugular venous pressure: no JVD Rate: regular rate Rhythm: regular rhythm Heart Sounds: S1 normal and S2 normal GI Inspection: normal to inspection Palpation: soft and no hepatosplenomegaly Auscultation: normal bowel sounds General: deferred Skin Wounds: wounds noted (right palm) Neuro General: patient alert, patient awake, tone normal, moves all extremities, normal light touch, pain and propioception and decrease sensation to monofilament Cranial Nerves: PERRL Cognition: abnormal cognition (can not follow all commands) Speech: abnormal speech garbled Motor: muscle tone normal throughout and strength 5/5 throughout Coordination: lkcjum-dv-[id number] test normal, gzet-yd-myxn test normal and rapid alternating movement UE normal Other: RUE 4/5 Extrem Right upper extremity: normal to inspection; ROM limited (improved strength 4/5 with improved 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) Objective Last Vital Signs Temp 36.7 C 03/20/21 07:32 Pulse 61 03/20/21 07:32 Resp 18 03/20/21 07:32 BP 166/86 H 03/20/21 07:32 Pulse Ox 97 03/20/21 07:32 Laboratory Results - last 24 hr 03/19/21 03/19/21 03/19/21 08:43 15:27 21:55 WBC RBC Hgb Hct MCV MCH MCHC RDW Plt Count MPV APTT 24.5 51.5 H D Sodium 142 Potassium 3.5 Chloride 108 H Carbon Dioxide 24.8 Anion Gap 9.2 BUN 10 Creatinine 1.0 Estimated GFR/1.73 m2 >= 60.00 Glucose 133 H Calcium 8.4 L Magnesium 1.8 03/20/21 03/20/21 03/20/21 06:18 06:18 06:18 WBC 7.17 RBC 4.09 L Hgb 12.3 L Hct 36.5 L MCV 89.2 MCH 30.1 MCHC 33.7 RDW 14.0 Plt Count 160 MPV 9.2 APTT 59.7 H Sodium 143 Potassium 3.6 Chloride 109 H Carbon Dioxide 24.9 Anion Gap 9.1 BUN 11 Creatinine 1.1 Estimated GFR/1.73 m2 >= 60.00 Glucose 103 Calcium 8.4 L Magnesium
[2021-03-20] MEDS: Finasteride 5 MG TAB PO (08:13)
[2021-03-20] MEDS: Aspirin 81 MG CHEW PO (08:13)
[2021-03-20] MEDS: Metoprolol 12.5 MG TAB PO ×2 (08:13→19:29)
[2021-03-20] MEDS: Pantoprazole 40 MG TABCR PO (08:14)
[2021-03-20] MEDS: Sertraline 50 MG TAB PO (08:14)
[2021-03-20] MEDS: Clopidogrel 75 MG TAB PO (08:23)
--- NOTE | 2021-03-20 11:09 | PT.INTREAT ---
Date of service: 03/20/21 Time of Service: 09:10 PT Notes Visit Reasons: Cerebrovascular accident Inpatient Physical Therapy Treatment Note [facility] Date: 03/20/2021 PRECAUTIONS: Activity as Tolerated SUBJECTIVE: Dima reports that he is feeling good and reports that he feels his only issue is with swallowing at this point. He feels his balance is good. OBJECTIVE: PAIN: No c/o pain BED MOBILITY/TRANSFERS Sit-stand: I Stand-sit: I GAIT Assistive Device: No AD Weight bearing: Full Assist: S Distance: 150' + 50' Deviation: Slight gait deviation to L VITALS: SaO2: 93-95% on RA with gait training and ther ex THEREX: Patient was instructed in a balance re-education program, including static and dynamic standing balance activities. He was able to tolerate completing exercises without use of UE support, although with CGA for safety. STAIRS: Up/down 9x4 and 6x6 no rail up and U rail down and a step-over pattern with supervision. ASSESSMENT: Patient tolerated session well without complaint. He demonstrates steady gait and pacing without assistive device support, although does demonstrate slight path deviation. PLAN: Continue with balance retraining and gait training. TREATMENT CODE/TIME: 25 minutes; 54181 x2 (09:10)
[2021-03-20] MEDS: LORazepam 0.5 MG TAB PO ×2 (13:59→19:29)
--- NOTE | 2021-03-20 17:55 | CMPROGNOTE_ITS ---
- If Service Date Differs Date of service: 03/20/21 Time of Service: 17:55 Care Management Progress Note S/O: No change in plan. Per provider note, Jared is regaining a lot of his strength and he remains in good spirits. Jared is started on Plavix for AFib. He is scheduled to have neuro and speech consults on Saturday. A Basic Metabolic Panel is ordered for tomorrow. Jared is expected to discharge home Saturday late afternoon, pending neuro and speech recommendations and lab results. CM will continue to follow. A: Jared is a 81 year old male admitted to [facility] on 03/17/2021 for CVA. P: Anticipate Jared will be discharged home with new Home Health PT when medically cleared by provider. He will follow up with his PCP, neurology, and discharge plan of care as directed. His , Christina, will drive him home via private vehicle when ready. CM will continue to support Jared, his , and discharge planning needs.
[2021-03-20] MEDS: Zolpidem 5 MG TAB PO (19:29)
[2021-03-20] MEDS: Atorvastatin 40 MG TAB 80 MG PO (19:31)
[2021-03-21] VITALS (11 sets, daily range): BP systolic 137–165; BP diastolic 68–85; PULSE 52–85; RESP 15–20; TEMP 36.2–37.4; O2SAT 96–98
--- NOTE | 2021-03-21 | DI.US_ITS ---
Exam(s) US CAROTID EXAM: US CAROTID CLINICAL HISTORY: suspected L carotid stenosis TECHNIQUE: Ultrasound performed using standard protocol. COMPARISON: US US ECHOCARDIOGRAM from 03/17/2021 FINDINGS: Duplex carotid ultrasound was performed. There is moderate visible atheromatous plaque in the caroti d bifurcations bilaterally. There is systolic flow velocity elevation in proximal internal carotid a rtery of 252 cm/second, this would be consistent with greater than 70 percent luminal diameter stenos is. Recent CT angiogram was interpreted as showing less than 50 percent luminal diameter stenosis bu t was technically limited with difficulty in measuring the degree of stenosis, this ultrasound result would support the diagnosis of a higher degree of stenosis at this site. No other significant findings on this bilateral duplex ultrasound. Bilateral antegrade vertebral gopi w noted. IMPRESSION: Flow velocity measurements suggest stenosis of greater than 70 percent luminal diameter of proximal l eft internal carotid artery. DATA REPOSITORY:
--- NOTE | 2021-03-21 06:52 | NUR.NOTE ---
Nursing Note: Bladder scan and post void residual performed at 0500. US estimate of 275 mL retained urine. Physician order to straight cath refused by patient. Patient wants to follow up with Dr. Ortiz.
[2021-03-21 07:04] LABS: Anion Gap 10.5 mmol/L (3-11); BUN 14 mg/dL (7-18); CO2 25.5 mmol/L (21.0-32.0); CREATININE 1.2 mg/dL (0.70-1.30); Calcium 8.4 mg/dL (8.5-10.1); Chloride 107 mmol/L (98-107); Estimated GFR 58.11 (mL/min/1.73m2); Glucose 105 mg/dL (74-106); Potassium 3.6 mmol/L (3.5-5.1); Sodium 143 mmol/L (136-145)
[2021-03-21] MEDS: Pantoprazole 40 MG TABCR PO (07:30)
[2021-03-21] MEDS: Metoprolol 12.5 MG TAB PO ×2 (09:19→20:01)
[2021-03-21] MEDS: Aspirin 81 MG CHEW PO (09:19)
[2021-03-21] MEDS: Finasteride 5 MG TAB PO (09:19)
[2021-03-21] MEDS: Sertraline 50 MG TAB PO (09:19)
[2021-03-21] MEDS: Clopidogrel 75 MG TAB PO (09:19)
[2021-03-21] MEDS: Heparin 5,000 UNITS/ML VIAL 5000 UNITS SC ×2 (09:19→17:46)
--- NOTE | 2021-03-21 13:21 | OTIE_ITS ---
Occupational Therapy Notes Inpatient Occupational Therapy Evaluation Date: 03/21/21 Referring Doctor: Vickie Armando NP OT Orders: Non Urgent Precautions: Fall, standard, DNR/DNI PATIENT PROFILE/ADMITTING DIAGNOSIS: Pt is a 81 year old male who was admitted to Med Surg due to CVA. Past Medical History: Medical History Benign prostatic hyperplasia continue on tamsulosin Depressive disorder Diverticulosis of colon without diverticulitis Erectile dysfunction Fatigue Hypertension Migraine Mitral valve regurgitation (09/19/92) F/U with PCP Dr. Pendleton Numbness of right hand Ventricular tachycardia (03/07/15) by event monitor 03/03/15 10 beat run - pt asymptomatic F/U with PCP Dr. Pendleton Vertigo Surgical History Colonoscopy - MAC (11/25/17) 2002, 2006 Cubital tunnel syndrome on right s/p ulnar nerve decompression DOS: 08/09/2020 History of carpal tunnel surgery of right wrist (~1981) Open knee repair (~2003) 2003;RIGHT KNEE; cartilage removed. 10/02; UNSURE OF PROCEDURE Right carpal tunnel syndrome S/p ECTR DOS: 08/09/2020 Social History/Home Situation: pt states that he lives with his . He notes that he is (I) at baseline and reports that he did not need any (A) with dressing, bathing, eating, driving, etc.. He does states that he has difficulty swallowing but otherwise his speech he reports is his baseline and that he has always had difficulty finding words. Equipment owned/DME: None per pt report SUBJECTIVE: Pt was sitting in chair when OT arrived, he was agreeable to OT session and notes that he wants to go home. OBJECTIVE: General Observation: Pleasant and agreeable to OT session. Mental Status: A&Ox3 Pain: no c/o pain ROM: RUE AROM WFL L UE AROM WFL STRENGTH: RUE 5/5 throughout LUE 5/5 throughout FUNCTIONAL MOBILITY/ADLS: Sit-Stand (I) Stand-sit (I) BATHING Pt denies, he has ideal ROM to be able to perform (I) DRESSING sitting in chair Dressing UE (I) Dressing LE (I) with leg over top technique GROOMING pt denies brushing teeth but is able to demonstrate ideal ROM to be able to perform (I) TOILETING on toilet (I) EATING sitting in chair (I) with liquids and hand to mouth BALANCE: Static sitting Normal Dynamic Sitting Normal Static Standing Normal Dynamic Standing Good SPECIAL TESTS: Daily Activity Limitations Standardized Measure [facility] AM -PAC ?6 clicks? Daily Activity Inpatient Short Form: Raw score: 22 INFORMED CONSENT/EDUCATION: Pt instructed in purpose of OT Consult and plan of care. ASSESSMENT: Patient is a 81-year-old male referred to occupational therapy services with diagnosis of CVA. Patient presents with clinical signs and symptoms consistent with dx. Pt was seen for OT consult, he was able to demonstrate increased (I) in his ADL routines, he functionally had no issues with his performance, no difficulty with gross and fine motor control of his (B) UE. He does note that he has difficulty swallowing and is awaiting a speech consultation. AMPAC score 22 Patient is assessed as a Low 17140 complexity based on the following: History: see above Examination: see functional limitations as noted above Presentation: evolving Decision Making: AMPAC score 22 GOALS N/A seen for OT consult only. PLAN OF CARE/TREATMENT PLAN: Discharge from skilled OT services. DISCHARGE RECOMMENDATIONS Home when medically cleared per MD. TREATMENT TIME/MINUTES/CODES 50301, 40765, 20 minutes (08:15) [facility] [place], [place]
--- NOTE | 2021-03-21 14:53 | PT.INTREAT ---
Date of service: 03/21/21 Time of Service: 08:40 PT Notes Visit Reasons: Cerebrovascular accident Inpatient Physical Therapy Treatment Note [facility] Date: 03/21/2021 PRECAUTIONS: Activity as Tolerated SUBJECTIVE: Dima reports that he is feeling good and reports that he feels his only issue is with swallowing at this point. He feels his balance is good. He would like to be able to eat scrambled eggs, and is looking forward to going home later today. OBJECTIVE: PAIN: No c/o pain BED MOBILITY/TRANSFERS Sit-stand: I Stand-sit: I GAIT Assistive Device: No AD Weight bearing: Full Assist: S Distance: 600' with 0# + 300' with 2# AW THEREX: Patient was instructed in a resisted balance re-education program, including static and dynamic standing balance activities. He was able to tolerate completing exercises without use of UE support, with SBA for safety. He was also able to tolerate izd-ti-[id number] ball toss with 2# medball without LOB. STAIRS: Up/down 3x4 and 2x6 no rail up/down and a step-over pattern independently. ASSESSMENT: Patient tolerated session well without complaint. He demonstrates steady gait and pacing without assistive device support, without path deviation. PLAN: Continue with balance retraining and gait training. TREATMENT CODE/TIME: 30 minutes; 72672 x2 (08:40)
--- NOTE | 2021-03-21 16:09 | W.PM.PROGNOT ---
Date of Service Date of service: 03/21/21 Time of Service: 16:09 Assessment and Plan Assessment and plan (1) CVA (cerebral vascular accident): Status: Chronic Assessment and plan: symptoms resolved continue plavix and asa for 90 days per neurology Palliative consult speech consult completed, see note for full details. will continue with soft diet, thin liquids, one pill at a time. (2) Facial droop: Status: Acute Assessment and plan: improved , speech consult completed, diet advanced and tolerating well. (3) Dysphasia: Status: Acute Assessment and plan: Improving, intermittent (4) Dysphagia: Status: Acute Assessment and plan: resolved (5) Orthostatic hypotension: Status: Chronic Assessment and plan: History of orthostatic hypotension. however not feeling dizzy with fineastride Encourage to slowly get up from sitting to standing position and encourage slow positions movements. (6) Mood disorder: Status: Chronic Assessment and plan: Started on zoloft for depression, also some cognitive delay. (7) Cubital tunnel syndrome on right: Status: Chronic Assessment and plan: s/p 6 weeks revision from previous done by [facility] [place] Small open area no signs of infection, numbness to 3 middle fingers this has been normal since surgery. (8) Dementia: Status: Suspected Assessment and plan: suspect dementia, states that his mentation has been declining prior to stroke but worse since stroke. He does not always follow commands, AAOx3 but does not comprehend, everything said, he was agitated last night and unable to sleep will give ambien as it is one of the safest medications for the elderly. In previous notes from neuro there is difficulty of comprehension but no diagnosis of dementia. Though this does appear worse per his could be exacerbated by CVA or change in environment. Will continue to monitor (9) DVT prophylaxis: Status: Acute Assessment and plan: heparin (10) Discharge planning issues: Status: Acute Assessment and plan: home with PT/OT and speech tomorrow discussed with Dr. Garcia Subjective Subjective Patient reports: no new complaints, feels better, tolerating liquids well, tolerating a regular diet, voiding w/o difficulty and afebrile Exam Const General: cooperative, comfortable and no acute distress Nutritional Appearance: average body habitus Orientation: alert and awake [facility] Head: normal to inspection and atraumatic Face and sinus: face asymmetric (right sided droop) and other Mouth: moist mucous membranes Eyes General: appearance normal, both eyes and all related structures Sclera: sclerae normal Pupils: PERRL EOM: EOM intact bilaterally Neck Neck: full ROM and no JVD Chest Chest: normal inspection of the chest Resp Effort & Inspection: normal respiratory effort and not able to speak in complete sentences Auscultation: clear to auscultation bilaterally Cardio Jugular venous pressure: no JVD Rate: regular rate Rhythm: regular rhythm GI Inspection: normal to inspection Palpation: soft Auscultation: normal bowel sounds Skin Wounds: wounds noted (right palm) Neuro General: patient alert, patient awake, tone normal and moves all extremities Cranial Nerves: PERRL Motor: muscle tone normal throughout and strength 5/5 throughout Coordination: lvjlae-oh-nimt test normal and rapid alternating movement UE normal Extrem Right upper extremity: normal to inspection Objective Last Vital Signs Temp 36.2 C L 03/21/21 11:29 Pulse 59 L 03/21/21 11:29 Resp 15 03/21/21 11:29 BP 149/78 H 03/21/21 11:29 Pulse Ox 97 03/21/21 11:29 Laboratory Results - last 24 hr 03/21/21 06:30 Sodium 143 Potassium 3.6 Chloride 107 Carbon Dioxide 25.5 Anion Gap 10.5 BUN 14 Creatinine 1.2 Estimated GFR/1.73 m2 58.11 Glucose 105 Calcium 8.4 L
--- NOTE | 2021-03-21 16:37 | NCONE_ITS ---
Date of service: 03/21/21 Time of Service: 16:37 Assessment and Plan Assessment and plan (1) CVA (cerebral vascular accident): Status: Chronic (2) Left carotid stenosis: Status: Acute (3) Babinski reflex: Status: Acute (4) Memory change: Status: Acute Assessment and plan: Mr. Norton is an 81 year-old, right-handed man who was admitted with the following: #1. Acute stroke in left hemisphere manifested by right hemiparesis, dysarthria, and dysphagia secondary to atheroembolus from left carotid stenosis. He has completed stroke work-up. He should continue aspirin 81mg daily + clopidogrel 75mg daily for 90 days after which he can be maintained on aspirin 81mg daily a lone (this plan may change pending vascular surgery rec's; see below) for secondary stroke prevention. Based on LDL cholesterol of 135, atorvastatin can be reduced to 40mg at discharge. Continue with PT, OT, ST. Avoid hypotension due to carotid stenosis - goal SBP 130-150. #2. Left carotid stenosis, symptomatic. I recommend urgent outpatient follow-up with [facility] [place] V[place]. #3. SVT vs afib. Agree with extended cardiac monitoring at discharge. If he has new afib, I do not think that is the cause of current stroke. #4. Bilateral Babinski reflexes. Noted on exam with reduced vibration in the toes. The bilateral findings would not be explained by his stroke or head imaging. He denies any balance problems. He has developed constipation in the last 1 year which he uses magnesium. He has also been struggling with urinary frequency/urgency in the last year which he attributed to BPH. These both could be signs of myelopathy. I recommend a c-spine MRI w/o as further work-up. #5. Memory/cognitive changes. Noted prior to stroke. I did not do cognitive testing today. Will plan to perform this at outpatient follow-up. He should follow-up in the neurology clinic in 4-6 weeks. Please call with any further questions or concerns. History of Present Illness History of Present Illness Chief Complaint: stroke Narrative: Handedness: right. HPI: Mr. Norton is an 81 year-old man with retention, anxiety, depression, BPH, mitral valve regurgitation, ?MCI vs dementia, migraine headaches, and recent right carpal tunnel release approximately 6 weeks ago at [facility] [place]. Mr. Norton was admitted on 03/17/2021 after he awoke with dysarthria, dysphagia, and right hemiparesis affecting the arm and hand more than the leg and face. His initial blood pressure was in the 140-170s. He was not a candidate for TPA as he presented outside of the time window. He was not on any antiplatelet medications prior to admission. He was started on DAPT in the ER (s/p 300mg clopidogrel) along with atorvastatin 80mg daily. He has since undergone the work-up below. He has made significant improvement in his strength. Dysarthria and dysphagia continue to be an issue, though also improved. His stay has been complicated by confusion. Apparently, pre-admission there had been concerns on his ability to drive. He was seen by my colleage Veronica Webb NP in Oct 2020 for NCS during which she noted concerns for MCI vs dementia. His stay has been further complicated by orthostatic hypotension with SBP drops from 180 to 130. This was attributed to flomax which has since been stopped. He has not had any further documented orthostatic hypotension. Work-up: -CTH (03/17/21): no acute findings. I reviewed these images personally and th is is my personal interpretation. -CTA head/neck (03/17/21): >50% but <90% stenosis of the L ICA. (Read as <50% by rads) I reviewed these images personally and this is my personal interpretation. -CUS (03/21/21): ordered due to discrepancy above. >70% L ICA stenosis. -MRI brain w/o (03/17/21): scattered small acute infarcts in the left frontal cortex. Mild chronic small vessel disease changes and atrophy. I reviewed these images personally and this is my personal interpretation. -TTE (03/17/21): EF 50-55%, no wall motion abnormalities, LA normal. -Labs: A1c 5.4, LDL 135 -Tele: several brief asymptomatic runs of SVT vs afib. Consults Requesting physician: Vickie Armando Review of Systems All systems reviewed & are unremarkable except as noted in HPI and below PFSH Medical History Benign prostatic hyperplasia continue on tamsulosin Depressive disorder Diverticulosis of colon without diverticulitis DNI (do not intubate) DNR (do not resuscitate) Dysarthria Erectile dysfunction Fatigue Hypertension Migraine Mitral valve regurgitation (09/19/92) F/U with PCP Dr. Pendleton Numbness of right hand Palliative care patient Ventricular tachycardia (03/07/15) by event monitor 03/03/15 10 beat run - pt asymptomatic F/U with PCP Dr. Pendleton Vertigo Surgical History Colonoscopy - MAC (11/25/17) 2002, 2006 Cubital tunnel syndrome on right s/p ulnar nerve decompression DOS: 08/09/2020 History of carpal tunnel surgery of right wrist (~1981) Open knee repair (~2003) 2003;RIGHT KNEE; cartilage removed. 10/02; UNSURE OF PROCEDURE Right carpal tunnel syndrome S/p ECTR DOS: 08/09/2020 Family History Mother Neoplasm BREAST Stroke Father No problems noted. Sister No problems noted. Brother No problems noted. Grandfather No problems noted. Grandfather No problems noted. Grandmother No problems noted. Grandmother No problems noted. Son No problems noted. Daughter No problems noted. Daughter No problems noted. Social History Smoking/Tobacco Use Status: Never Smoking risk assessment performed?: Yes Alcohol Intake: never Drug use: Never Substance use type: does not use Household members: spouse Housing: house Number of Children: 3 number of grandchildren: 4 Current gender identity: male What is your relationship status?: Panel score (0-1 are the most socially isolated patients): 1 What type of physical activity do you participate in: walking Seatbelt use: always Do you feel safe at home: Yes Do you feel safe in your relationship?: Yes Visit Medication and Allergies Active Medications Generic Name Dose Route Start Last Admin Trade Name Freq PRN Reason Stop Dose Admin Acetaminophen 0 mg 03/17/21 12:34 Acetaminophen 325 Mg Tab PO Q4H PRN PRN Albuterol Sulfate 2.5 mg 03/17/21 12:34 Albuterol 2.5 Mg/3 Ml Inh Soln Vial UPD Q2H PRN PRN Aspirin 81 mg 03/18/21 08:30 03/21/21 09:19 Aspirin 81 Mg Chew PO 81 mg DAILY AKANKSHA Administration Atorvastatin Calcium 80 mg 03/18/21 20:00 03/20/21 19:31 Atorvastatin 40 Mg Tab PO 80 mg QPM AKANKSHA Administration Clopidogrel Bisulfate 75 mg 03/21/21 08:30 03/21/21 09:19 Clopidogrel 75 Mg Tab PO 75 mg DAILY AKANKSHA Administration Dimethicone/Zinc Oxide 0 gm 03/17/21 12:34 Tamiko Protect Cream 142 Gm Tube TP PRN PRN Docusate Sodium 100 mg 03/17/21 12:34 Docusate Sodium 100 Mg Cap PO TID PRN PRN Finasteride 5 mg 03/19/21 08:30 03/21/21 09:19 Finasteride 5 Mg Tab PO 5 mg DAILY AKANKSHA Administration Heparin Sodium (Porcine) 5,000 units 03/21/21 08:00 03/21/21 09:19 Heparin 5,000 Units/Ml Vial SC 5,000 units Q8H AKANKSHA Administration Hydralazine HCl 25 mg 03/17/21 16:45 Hydralazine 25 Mg Tab PO Q6H PRN PRN IV Miscellaneous Supplies 1 each 03/17/21 12:45 Iv Access IV DIRECTED AKANKSHA Lorazepam 0.5 mg 03/19/21 09:01 03/20/21 19:29 Lorazepam 0.5 Mg Tab PO 0.5 mg TID PRN PRN Administration ANXIETY Magnesium Hydroxide 30 ml 03/17/21 12:34 Milk Of Magnesia 30 Ml Cup PO DAILY PRN PRN Metoprolol Tartrate 12.5 mg 03/18/21 20:00 03/21/21 09:19 Metoprolol 12.5 Mg Tab PO 12.5 mg BID AKANKSHA Administration Pantoprazole Sodium 40 mg 03/21/21 07:30 03/21/21 07:30 Pantoprazole 40 Mg Tabcr PO 40 mg DAILY@0730 AKANKSHA Administration Polyethylene Glycol 17 gm 03/17/21 12:34 Polyethylene Glycol 3350 17 Gm Packet PO DAILY PRN PRN Constipation Sertraline HCl 50 mg 03/19/21 08:30 03/21/21 09:19 Sertraline 50 Mg Tab PO 50 mg DAILY AKANKSHA Administration Sodium Chloride 10 ml 03/17/21 10:14 03/17/21 10:14 Normal Saline Flush 10 Ml Syr IVP 10 ml PRN PRN Administration Sodium Chloride 0 ml 03/17/21 12:34 Normal Saline Flush 10 Ml Syr IVP PRN PRN Zolpidem Tartrate 5 mg 03/20/21 20:00 03/20/21 19:29 Zolpidem 5 Mg Tab PO 5 mg 2000 AKANKSHA Administration Allergies bupropion [From Wellbutrin] Adverse Reaction (Severe, Verified 02/08/21 13:20) constipation, made him worse Exam Narrative Exam Narrative: Physical Exam: Gen: Patient of apparent stated age, NAD Head and face: no facial or cranial abnormalities Neck: Supple, no meningismus, no occipital tenderness CV: + S1, S2, RRR, no murmur Resp: CTA B/L Abd: soft, nontender, nondistended Ext: No edema. No clubbing or cyanosis. No bony deformity. Neuro Exam: Language: fluency, naming, repetition, and comprehension intact; Mental Status: AAO to self, current events and fund of knowledge limited; Speech: mild dysarthria Cranial nerves: Funduscopy: not performed CN II: visual pat intact CN III, IV, : extraocular movements intact, no nystagmus, pupils symmetric and reactive to light CN V: face sensation intact to LT and PP CN VII: no facial asymmetry noted CN VIII: hearing intact bilaterally CN IX, X: palate rises symmetrically CN XI: trapezius/SCM 5/5 bilaterally CN XII: protrudes tongue symmetrically Sensory: intact to LT, PP, and joint position in all extremities; reduced vibration in the toes bilaterally Motor: bulk and tone intact. Fine motor movements intact bilaterally. No pronator drift. Strength 5/5 throughout including the deltoids, biceps, triceps , wrist extensors, hip flexors, knee flexors, knee extensors, ankle flexors, and ankle extensors. Reflexes: 2+ at the biceps, triceps, brachioradialis; brisk at the patella, and 2+ at the achilles tendons bilaterally; +Babinski bilaterally; 2-3 beats of clonus in right ankle; neg Alegre/Tromner; Coordination: FTN and HTS intact bilaterally Gait: not performed Results Last Vital Signs Temp 37.4 C 03/21/21 15:11 Pulse 64 03/21/21 16:28 Resp 17 03/21/21 15:11 BP 137/79 03/21/21 15:11 Pulse Ox 98 03/21/21 15:11 Labs Result diagrams: 03/20/21 06:18 03/21/21 06:30 Labs: Laboratory Results - last 24 hr 03/21/21 06:30 Sodium 143 Potassium 3.6 Chloride 107 Carbon Dioxide 25.5 Anion Gap 10.5 BUN 14 Creatinine 1.2 Estimated GFR/1.73 m2 58.11 Glucose 105 Calcium 8.4 L
--- NOTE | 2021-03-21 17:08 | PDOC.CMPRO ---
- If Service Date Differs Date of service: 03/21/21 Time of Service: 17:08 Care Management Progress Note S/O: Dima was sitting up in his chair when CM met with him. He reported that he could be better, and stated that he was upset that he was still being given clear liquids and not a regular diet. Per report, Jared will have a speech therapy evaluation today, which is why he is still on a clear liquid diet. CM visited later when his was visiting, who had questions regarding HH services. Jared also had a neuro consult late in the day. Per report, he will likely be discharged home tomorrow with new orders for HH RN, PT, ST, which he is agreeable to. CM will continue to follow. A: Jared is a 81 year old male admitted to [facility] on 03/17/2021 for CVA. P: Anticipate Jared will be discharged home with new Home Health RN, PT & ST when medically cleared by provider. He will follow up with his PCP, neurology, and discharge plan of care as directed. His , Christina, will drive him home via private vehicle when ready. CM will continue to support Jared, his , and discharge planning needs.
--- NOTE | 2021-03-21 17:10 | W.SPSTE ---
Date of service: 03/21/21 Time of Service: 15:30 Subjective Speech-Language/Swallowing Pathology Clinical Dysphagia Evaluation Medical Diagnosis: CVA Therapy Diagnosis: Dysphagia, Unspecified Current Level of Care: Inpatient. Subjective: Pt was sitting in his bedside chair when the CHILD SUPPORT SPECIALIST arrived. His was visiting and present for the duration of the assessment. Pt is verbal and while speaking in a low volume and slurred/dysarthric at times (often secondary to fast rate), pt could be understood and functionally communicated with the clinician and his today. Pt reports a stutter at baseline, seen during exam today. They also note increasing word finding difficulty prior to the stroke. Pertinent Medical/Swallowing History & Previous Level of Function: Pt previously reports stuttering and word finding difficulty before the stroke, but no hx of dysphagia and eating a regular diet. Increasing depression prior to stroke per his . 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 Current Level of Function & Reason for Referral: Pt is an 81 year-old male referred for bedside swallow evaluation to assess for aspiration risk and safe diet secondary to CVA. Pt has been on a liquid diet since admission, but is taking medications as normal, several at once, which nursing confirms no difficulty. Living Environment/Support: Pt lives in a house with his . She does all of the cooking, though pt is described to be a snacker and helps himself. Precautions: Fall risk. COVID-19 precautions. Medications: Please see MAR. Allergies: None. Barriers to Learnin days s/p stroke. Dementia listed in MAR. Depression. Respiratory Function: WFL. Supplemental Oxygen: None. Posture/Positioning: Adequate. Pt able to sit fully upright in his bedside chair for evaluation, without supports. Prior Diet: Regular, thin liquids. Moist meats. Pt taking several pills at once with water or juice at home with no reported difficulty. Current Diet: Liquid only while awaiting CHILD SUPPORT SPECIALIST evaluation. Pt is taking medications orally with liquid. Nursing confirms that he is managing multiple pills at once without difficulty. ORAL MECHANISM EXAMINATION Dentition: Upper and lower natural, partial lower plate. Oral Hygiene: Poor. Decay present. Pt admits to only brushing his teeth occasionally and rarely removing his plate. Oral care education provided to pt and his , particularly regarding increasing oral care routine including brushing 2x/day with toothbrush and toothpaste to improve oral health and reduce risks of bacteria development. Oral Structures: Pt?s smile is symmetrical. His tongue deviates slightly to the left upon protrusion. Labial and mandibular strength and ROM WFL today. Coordination intact. Pt with reduced lingual ROM and strength, particularly on the right side. However, pt observed to adequately use lingual sweep to clear oral residue. Consistencies Tested: Thin liquid. Puree, minced and moist, soft and bite sized, regular solids. Self-Feeding/Level of Assistance: Independent. Oral Phase: No labial leakage noted with liquids, however, solid residue present on right lower lip on occasion; pt immediately sensing and wiping away with his finger. Mild oral residue noted with solids, contained mostly within the gumline, however, pt able to use lingual sweep to clear and re-swallow as well as liquid wash. Pt impulsive when drinking, often taking consecutive swallows without cues. Pt able to be redirected to use small single sips with frequent verbal cueing. Pharyngeal Phase: Hyolaryngeal elevation/excursion present upon palpation. Pt often swallowing 2-3x per sip of liquid, however, pt able to follow instructions to take single sips at a time and complete brief bolus hold, which improved coordination and reduced extra swallows. Pt denies any globus sensation across solid and liquid textures. Esophageal Phase: Pt with hx of GI issues. S/S Aspiration: Cough noted post swallow of consecutive swallows of thin liquids only, successfully eliminated with single sips and slowing pace. No overt s/s of aspiration upon consumption of solids today. Pt/Caregiver/Staff Education: Nursing and hospitalist as well as the pt and his informed of outcomes of today?s bedside swallow evaluation with recommended diet modifications and safe swallow strategies to reduce risks of aspiration and choking reviewed. Pt's was given a handout outlining appropriate texture and meal preparation to follow safe swallow protocol while at home and observed verbal cueing necessary to support pt to reduce his pace while drinking. CHILD SUPPORT SPECIALIST further discussed recommendations for follow-up home health assessment for both dysphagia and speech/language s/p stroke and return home. Assessment: Pt is an 81 year-old male who is seen today 4 days s/p stroke for bedside clinical swallow evaluation. Pt evidences s/s of aspiration (coughing) when taking fast, large, and/or consecutive swallows of thin liquids. Overt aspiration was eliminated with implementation of safe swallow protocol for small single sips (1 small sip, cup down [resulting in brief bolus hold], swallow, repeat). With pacing and bolus size protocols in place, pt able to manage thin liquids via open cup. No overt s/s of aspiration noted for solids, including regular textures (side salad, raw vegetables) during exam today, however, please note that mixed textures or large variety of textures were not assessed today. Pt remains at risk for aspiration and choking secondary to his maladaptive eating behaviors, primarily large liquid bolus size and impulsivity/fast pace. These risks can be reduced with implementation of a modified diet and safe swallow protocol. Pt is recommended for modified diet of IDDSI Level 6-Soft and Bite-Sized. No liquid texture modification indicated at this time, however, pt must take small single sips, recommended from an open cup (avoid straws). Pt is advised to follow aforementioned diet pending follow-up home health dysphagia re-assessment. Please see additional safe swallow recommendations below. Rehab Potential: Good for stated goals. Short-Term Goals: Defer to LTG. Long-Term Goals: 1. CHILD SUPPORT SPECIALIST will provide 1x follow-up consultation for education/training with pt and his to review safe swallow protocol/strategies and discharge recommendations. Pt Goal: To go home. PLAN Planned Treatment Interventions: Treatment of swallowing dysfunction. Frequency: 1x follow-up. Intensity: 30 minutes. Duration: 1 visit. Discharge Plan: After 1 follow-up visit as anticipated to be discharged home. Pt is recommended to be followed by home health CHILD SUPPORT SPECIALIST thereafter. SWALLOWING RECOMMENDATIONS Solids: IDDSI Level 6-Soft and Bite-Sized. Liquids: Thin. Medication Administration: 1 whole pill at a time with liquid. Pt may also trial pills in puree/pudding if needed. Level of Assistance/Supervision: Periodic check-ins. Strategies/Adaptations/AE: Small single sips only (1 small sip, cup down, swallow, then repeat). Pace rate of intake. Small bites and sips. Foods cut small. Alternate liquids and solids (take a drink every couple of bites). Avoid straws at this time pending re-assessment. Ensure complete mastication and swallow before next bite. Check oral cavity frequently and encourage use of lingual sweep to clear residue. Remain upright for at least 30 minutes after meals. Oral care no less than 2x/day with toothbrush and cleaning agent. Posture/Positioning Needs: Out of bed and in a chair for all meals. Fully upright. Recommended Referrals/Procedures: Home health CHILD SUPPORT SPECIALIST services, including dysphagia re-evaluation in the home setting and speech/language IE s/p CVA. Speech/language assessment may also be appropriate in outpatient setting. Charge Code: 59273-Qoliphn Evaluation Time In: 2:30 pm Time Out: 4:30 pm Total Time: 2 hours Coding
[2021-03-21] MEDS: Atorvastatin 40 MG TAB 80 MG PO (20:01)
[2021-03-21] MEDS: Zolpidem 5 MG TAB PO (20:01)
[2021-03-21] MEDS: Normal Saline Flush 10 ML SYR IVP (20:03)
[2021-03-22] VITALS (7 sets, daily range): BP systolic 113–150; BP diastolic 61–72; PULSE 52–68; RESP 16–18; TEMP 36.3–36.7; O2SAT 95–97
--- NOTE | 2021-03-22 | DI.CT_ITS ---
Exam(s) CT CERVICAL SPINE WO EXAM: CT CERVICAL SPINE WO CLINICAL HISTORY: gait abnormalities. TECHNIQUE: Imaging Protocol: Axial computed tomography images with coronal and sagittal reformatted images were created and reviewed COMPARISON: CT CT BRAIN NECK CTA from 03/17/2021 FINDINGS: Bones: No fracture or dislocations are seen. The alignment of the cervical spine is normal including the cervicovertebral junction and cervicothoracic junction. There is disc space narrowing at C3-4, C4 -5 and C5-C6. Endplate osteophytes are seen from C3-4 through C6-C7. C2-3: Hypertrophic changes are seen at the right uncovertebral joint. This results in mild right megan ral foraminal narrowing. No significant central spinal canal stenosis. C3-4: Bilateral hypertrophic changes of the uncovertebral joints are seen. There is mild bilateral n eural foraminal stenosis. Mild prominence of the osteophyte disc complex but no significant central spinal canal stenosis. C4-5: Hypertrophic changes are seen at the uncovertebral joints bilaterally, left greater than right. There is mild left neural foraminal stenosis. No significant right neural foraminal stenosis. Mil d prominence of the osteophyte disc complex but no significant central spinal canal stenosis. C5-6: Bilateral hypertrophic changes of the uncovertebral joints are seen. No significant neural for aminal stenosis. Prominence of the osteophyte disc complex with mild narrowing of the central spinal canal. C6-7: Mild hypertrophic changes of the uncovertebral joints are noted. No significant neural foramin al stenosis. No significant central spinal canal stenosis. C7-T1: No significant neural foraminal stenosis. No significant central spinal canal stenosis. Soft Tissues: The soft tissues of the neck are unremarkable. The visualized thyroid gland is unremark able. The lung apices are clear. Atherosclerosis. IMPRESSION: Multilevel degenerative changes in the cervical spine resulting in central spinal canal neural forami nal stenosis as described above. RADIATION DOSE DELIVERED: 349.69mGy.cm Total DLP 349.69mGy.cm Total DLP DATA REPOSITORY: All CT scans at this facility are submitted to the National Radiology Data Registry (NRDR) Dose Index Registry (DIR) with the [employer] ([employer]). RADIATION OPTIMIZATION: All CT scans at this facility use at least one of these dose optimization te chniques: automated exposure control; mA and/or kV adjustment per patient size (includes targeted exa ms where dose is matched to clinical indication); or iterative reconstruction.
--- NOTE | 2021-03-22 | DI.MRI_ITS ---
Exam(s) MR CERVICAL SPINE WO EXAM: MR CERVICAL SPINE WO CLINICAL HISTORY: evaluate stenosis TECHNIQUE: Multiplanar multisequence MRI of the cervical spine was performed without intravenous con trast. COMPARISON: No exams were available for comparison FINDINGS: BONES: Vertebral body heights are maintained. Disc space narrowing is seen at C3-4, C4-5 and C5-C6. A lignment is normal. Degenerative endplate signal changes are seen at multiple levels in the cervical spine. CERVICAL CORD: Craniovertebral junction is unremarkable. The cervical cord is normal size and signal intensity. SOFT TISSUES: Unremarkable. C2-3: No disc herniation or bulge is identified. No significant central spinal canal stenosis. Mild h ypertrophic changes of the right uncovertebral joint are noted with mild narrowing of the right neura l foramen. C3-4: Mild prominence of the osteophyte disc complex result in very mild narrowing of the central spi nal canal. Hypertrophic changes of the uncovertebral joints are seen bilaterally resulting in mild bi lateral neural foraminal narrowing. C4-5: There is mild prominence of the osteophyte disc complex but no significant central spinal canal stenosis. There is bilateral uncovertebral joint hypertrophy. There is mild narrowing of the neural foramen bilaterally, left greater than right. C5-6: There is prominence of the osteophyte disc complex. There is very mild narrowing of the central spinal canal. There are hypertrophic changes of the uncovertebral joints. Mild narrowing of the left neural foramen is seen. There may be mild narrowing of the right neural foramen. C6-7: There is mild prominence of the osteophyte disc complex. No focal disc herniation. No significa nt central spinal canal stenosis or neural foraminal stenosis. There are mild degenerative changes of the uncovertebral joints bilaterally. C7-T1: No disc herniation or bulge is identified. No significant central spinal canal or neural mac inal stenosis IMPRESSION: Multilevel degenerative changes in the cervical spine resulting in central spinal canal stenosis and neural foraminal stenosis as described above. DATA REPOSITORY:
[2021-03-22] MEDS: Heparin 5,000 UNITS/ML VIAL 5000 UNITS SC ×2 (00:52→08:12)
[2021-03-22] MEDS: Aspirin 81 MG CHEW PO (08:12)
[2021-03-22] MEDS: Metoprolol 12.5 MG TAB PO (08:12)
[2021-03-22] MEDS: Sertraline 50 MG TAB PO (08:12)
[2021-03-22] MEDS: Pantoprazole 40 MG TABCR PO (08:13)
[2021-03-22] MEDS: Finasteride 5 MG TAB PO (08:13)
[2021-03-22] MEDS: Clopidogrel 75 MG TAB PO (08:13)
[2021-03-22] MEDS: Normal Saline Flush 10 ML SYR IVP (08:14)
--- NOTE | 2021-03-22 09:30 | INDS_ITS ---
Date of service: 03/23/21 PT Notes Visit Reasons: Cerebrovascular accident Physical Therapy Inpatient Discharge Summary Date: 03/22/2021 Dates of service: 03/18/2021 through 6 from 03/21/2021 This is a clinical summary of care provided for the duration of dates listed above. No charge was made in the completion of this documentation. Referring Doctor: Vickie Armando NP PT Orders: PT CONSULT: Extended stay weakness. Fall safety assessment. CVA. Precautions: Fall. Standard. Activity as tolerated. Patient Profile/Admitting Diagnosis: Cyrus is an 81-year-old male who presented to the ED on 03/17/2021 with right-sided facial droop, swallowing difficulty, and slurred speech. He is diagnosed with cerebrovascular accident, facial droop, and dysarthria. PMHX: Medical History Benign prostatic hyperplasia continue on tamsulosin Depressive disorder Diverticulosis of colon without diverticulitis Erectile dysfunction Fatigue Hypertension Migraine Mitral valve regurgitation (09/19/92) F/U with PCP Dr. Pendleton Numbness of right hand Ventricular tachycardia (03/07/15) by event monitor 03/03/15 10 beat run - pt asymptomatic F/U with PCP Dr. Pendleton Vertigo Surgical History Colonoscopy - MAC (11/25/17) 2002, 2006 Cubital tunnel syndrome on right s/p ulnar nerve decompression DOS: 08/09/2020 History of carpal tunnel surgery of right wrist (~1981) Open knee repair (~2003) 2003;RIGHT KNEE; cartilage removed. 10/02; UNSURE OF PROCEDURE Right carpal tunnel syndrome S/p ECTR DOS: 08/09/2020 Social History/Home Situation: Lives with in a private home with 10 steps to enter through the garage with rails on both sides. There is an alternate 1 step to the front entrance of the house. Independent with all aspects of ADLs prior to ED admission, no assistive device number adaptive equipment needed. 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 Equipment Owned/DME: None Subjective: NT. See most recent ESTATE ADMINISTRATOR notes. Objective: General Observation: NT. See most recent ESTATE ADMINISTRATOR notes. Ed. Mental Status: NT. See most recent ESTATE ADMINISTRATOR notes. Alert and oriented as to person, place, time, and purpose. Able to pay attention, focus, and respond appropriately. Pain: NT. See most recent ESTATE ADMINISTRATOR notes. ROM: Right Upper Extremity: Shoulder Flexion WFL. Shoulder abduction WFL. Shoulder ER/IR WFL. Elbow flexion WFL. Forearm pronation/supination WFL. Wrist flexion WFL. Opening and closing of hand WFL. Left Upper Extremity: Shoulder Flexion WFL. Shoulder abduction WFL. Shoulder ER/IR WFL. Elbow flexion WFL. Forearm pronation/supination WFL. Wrist flexion WFL. Opening and closing of hand WFL. Pincer grasp on right side with third through fifth digit absent. Opposition of digits 3 through 5 absent. Right Lower Extremity: Hip flexion WFL. Hip abduction WFL. Hip ER/IR WFL. Knee flexion WFL. Knee extension. Ankle dorsiflexion/eversion WFL. Ankle plantarflexion/inversion WFL. Left Lower Extremity: Hip flexion WFL. Hip abduction WFL. Hip ER/IR WFL. Knee flexion WFL. Knee extension. Ankle dorsiflexion WFL. Ankle plantarflexion WFL. Strength: Right Upper Extremity: Shoulder flexors 5/5. Shoulder abductors 5/5. Shoulder ER 5/5. Shoulder IR 5/5. Forearm pronators 5/5. Forearm supinators 5/5. Elbow flexors 5/5. Elbow extensors 5/5. Sheet Rock Taper Helper strong. Left Upper Extremity: Shoulder flexors 5/5. Shoulder abductors 5/5. Shoulder ER 5/5/ Shoulder IR 5/5. Forearm pronators 5/5. Forearm supinators 5/5. Elbow flexors 5/5. Elbow extensors 5/5. Sheet Rock Taper Helper strong. Right Lower Extremity: Hip flexors 5/5. Hip abductors 5/5. Hip external rotators 5/5. Hip internal rotators 5/5. Knee flexors 5/5. Knee extensors 5/5. Ankle dorsiflexors/evertors 5/5. Ankle plantarflexors/invertors 5/5. Left Lower Extremity: Hip flexors 5/5. Hip abductors 5/5. Hip external rotators 5/5. HIp internal rotators 5/5. Knee flexors 5/5. Knee extensors 5/5. Ankle dorsiflexors/evertors 5/5. Ankle plantarflexors/invertors 5/5. Sensation: Numbness on middle and ring finger on the palmar aspect of distal phalanges. Bed Mobility/Transfers: Rolling independent Supine to sit independent Sit to supine independent Sit to stand independent Stand to sit independent Bed to chair independent Chair to bed independent Gait: Tolerates up to 600 feet of level surface ambulation, supervision with no assistive device. Also completed 20 treatments with bilateral ankle weights r equiring same level of assist. Stairs: Able to tolerate up-and-down three 4 inch steps into 6 inch steps without holding onto a rail with step over step pattern independently. Balance: Static Sitting: Normal Dynamic Sitting: Normal Static Standing: Normal Dynamic Standing: Good Special Tests: Mobility Limitations Standardized Measure [facility]-PAC 6 clicks Basic Mobility Inpatient Short Form: Raw Score: 23 CMS Score: 11% deficit 4-stage balance test: Able to maintain feet together as well as semi-tandem for 10 seconds but is unable to do so with full tandem and 1 legged stance indicating risk for falling. Assessment: Strength symmetric in B UE/LE. Numbness on the palmar aspect of distal phalanges of the middle and ring fingers was preexistent to CVA occurrence and related to previous carpal tunnel surgery. Decreased opposition and pincer grasp from digits 3 through 5. Patient presents with clinical signs and symptoms consistent with curr ent/admitting diagnoses that have resulted to mobility limitations, gait instability, generalized weakness, and impairment of motor control as demonstrated by the following impairment level findings: 1. Decreased strength to right DIP muscles from digits 3 through 5 on the right side 2. Impaired standing balance 3. Impaired activity tolerance 4. Limitation of joint range of motion in right third through fifth DIP joints for flexion Impairments are contributing to the following functional limitations: 1. Supervision assist for all hallway ambulation without assist device Goals: Goals X1 week 1. Sit-Stand independent MET 2. Stand-Sit independent MET 3. Bed-Chair independent MET 4. Chair-Bed independent MET 5. Independent gait on level surface with use of no assistive device for at [address] 1000 feet without report of pain nor dyspnea NOT MET 6. Independent stair negotiation while holding onto B rails for at least 10 steps without report of pain nor dyspnea NOT MET 7. Independent with home exercise program NOT MET 8. Normal static and dynamic standing balance/tolerance NOT MET DISCHARGE RECOMMENDATIONS: Home when medically cleared by hospitalist. Outpatient Occupational Therapy services in order to address finger dexterity issues. TREATMENT CODE/TIME: PA Thank you for the opportunity to participate in the care of this patient. Mindy Arreguin PT, DPT, CLT [facility] [place], [place]
--- NOTE | 2021-03-22 09:32 | SP_ITS ---
Date of service: 03/22/21 Time of Service: 09:32 Subjective COOKING CASING AND DRYING SUPERVISOR Treatment Note Patient assessed in AM with breakfast meal (IDDSI Levels 0/6; thin/soft & bite- sized) and able to demonstrate carryover of reviewed strategies per evaluating COOKING CASING AND DRYING SUPERVISOR from day prior; patient also agreeable to cognitive-linguistic screening given concerns with memory changes from baseline since onset of CVA, as well as concerns from spouse via phone this AM re: patient's 'mentality' and ability to follow through with recommended safety guidelines (ie, not driving etc). COOKING CASING AND DRYING SUPERVISOR spoke with spouse via phone this AM at length to review recommendations re: dysphagia management, role of COOKING CASING AND DRYING SUPERVISOR and recommendations for HH services including further strategies for managing memory/executive function changes once patient is discharged home. Objective Objective Swallowing Function: 3 oz Water Screening: Pass IDDSI Level 0 - (-) neg overt s.s aspiration with controlled sips via open cup, able to demonstrate independently x5 throughout eval today Patient benefits from spaced retrieval technique for continued carryover of effective strategies (ie, reduced volume/rate, placing cup down prior to next sip) TC noted x1 with drink from straw, advice against straw use until reassessment in home environment at this time IDDSI Level 6 soft & bite sized - WFL, (-) neg overt s.s aspiration IDDSI Level 7 easy to chew - WFL, (-) overt s.s aspiration (soft bran muffin, pt noted to eat with reduced volume/rate this AM, denies globus) Cognitive-Linguistic Functioning: MOCA 7.1 03/22/21 Visuospatial/Executive Functionin/5 Namin3 Attention: 02/23 Language: 3/3 Abstraction:2/ Delayed Recall: 0/5 Orientation: 03/26 TOTAL: Assessment Patient demonstrates swallowing abilities as WFL at this time when utilizing recommended strategies as reviewed and with aforementioned diet texture modifications; patient does require verbal cues to utilize these strategies however; cognitive-linguistic screening demonstrates more significant deficits in delayed recall (mostly short term with novel information; does demonstrate some difficulties with chcf recall per informal assessment) and subtle deficits in executive functioning; naming; and attention. Further cognitive-linguistic evaluation is recommended with continued COOKING CASING AND DRYING SUPERVISOR treatment via and/or via outpatient COOKING CASING AND DRYING SUPERVISOR as appropriate. Patient is to be d/c soon to home environment; no further acute COOKING CASING AND DRYING SUPERVISOR services are warranted at this time. Recommendations: COOKING CASING AND DRYING SUPERVISOR Reassessment in home environment to address residual dysphagia management as appropriate; cognitive-linguistic evaluation and patient/caregiver education SWALLOWING RECOMMENDATIONS Solids: IDDSI Level 6-Soft and Bite-Sized. Liquids: Thin. Medication Administration: 1 whole pill at a time with liquid. Pt may also trial pills in puree/pudding if needed. Level of Assistance/Supervision: Periodic check-ins. Strategies/Adaptations/AE: Small single sips only (1 small sip, cup down, swallow, then repeat). Pace rate of intake. Small bites and sips. Foods cut small. Alternate liquids and solids (take a drink every couple of bites). Avoid straws at this time pending re-assessment. Ensure complete mastication and swallow before next bite. Check oral cavity frequently and encourage use of lingual sweep to clear residue. Remain upright for at least 30 minutes after meals. Oral care no less than 2x/day with toothbrush and cleaning agent. Posture/Positioning Needs: Out of bed and in a chair for all meals. Fully upright. Instrumentation: Patient may benefit from follow up VFSE/MBSS if overt s/s aspiration are noted upon discharge; patient/caregiver/nursing staff provided education re: overt s/s aspiration to be monitored Plan Pt to be d/c from acute care to home with COOKING CASING AND DRYING SUPERVISOR services, follow up with outpatient as deemed appropriate per COOKING CASING AND DRYING SUPERVISOR re-evaluation. Corrie Madera MA [facility]-COOKING CASING AND DRYING SUPERVISOR Speech Language Pathologist Senior Care Goals: N/A Short Term Goals: N/A CODING 18645 ? Treatment of swallowing dysfunction Coding
--- NOTE | 2021-03-22 13:11 | PDOC.HHF2F_ITS ---
Home Health Certification Home Health Certification: 1. Encounter Date and Reason I certify that Dima Norton was seen by Adamaris Cervantes on 03/22/21 and that I had a [id number] encounter with this patient that meets the physician face to face encounter requirements. 2. Clinical Findings Supporting Skilled Need and Homebound Status I certify that home health services are medically necessary, include either intermittent senior living and/or physical/speech therapy, and that this patient is homebound in that absences from the home require considerable and taxing effort and are infrequent or of short duration, or are attributable to the need to receive medical care. [X] (a) Attached documentation from encounter provides clinical findings supporting skilled need and homebound status (including what assistance patient requires to leave the home). The encounter with the patient was in whole, or in part, for the following medical condition, which is the primary reason for home health care: CVA Intermediate: routine evaluation and monitoring of medical condition, medication oversight, signs and symptoms or decompensation. Physical Therapy: routine evaluation and treatment of ability to safely and independently ambulate and perform ADL's Speech Therapy: routine evaluation and treatment Homebound: unable to safely leave home without assistance and ambulation limited to decreased strength and endurance, unsteady gait and cognitive impairment 3. Certification and Authentication I certify that I composed the above information based on my clinical judgement relating to this patient's medical condition and, if applicable, clinical findings communicated to me by the NPP or inpatient physician who performed the Home Health Referral. All further orders will be obtained through (Community Based Physician - PCP)
--- NOTE | 2021-03-22 14:36 | W.PM.DS.N ---
Date of service: 03/22/21 Time of Service: 14:41 DS: Diagnosis Discharge Diagnosis (1) CVA (cerebral vascular accident): Status: Chronic (2) Left carotid stenosis: Status: Acute (3) Babinski reflex: Status: Acute (4) Memory change: Status: Acute Discharge Plan Disposition Patient Disposition: HOME W/HOME HEALTH SERVICE Condition: Stable Discharge Details Reason For Visit: CVA Admit Date/Time: 03/17/21 12:34 Admit Provider: Arvind Nelson Attending Provider: Arvind Nelson Primary Care Provider: Aj Pendleton Hospital Course Hospital Course: This is an 81 y.o male with PMH of HTN, BPH, anxiety, depression, migraines, who presented to [facility] ED for slurred speech, facial droop and dysphagia onset 20 mins prior to arrival. CTA head with less than 50% stenosis ICA left no other acute findings, CXR negative. Symptoms starting improving in the ED, therefore TPA was not given. Labs with slight BUN elevation of 19, other arredondo negative. He was admitted for further management. MRI revealed cerebral atrophy with tiny peripheral coritcal areas of acute or subacute infarct to temporal region. Echo with borderline systolic function, EF 50-55%, RVSP 21.2, Mild mitral annular calcification, trace to mild mitral regurgitation. He was admitted to telemetry, started on Plavix daily, atorvastatin daily per [facility]. He was also evaluated by neurology here, his acute stroke in left hemisphere manifested by right hemiparesis, dysarthria, and dysphagia secondary to atheroembolus from left carotid stenosis. He has completed stroke work-up. Recommendations to continue aspirin 81mg daily + clopidogrel 75mg daily for 90 days after which he can be maintained on aspirin 81mg daily alone (this plan may change pending vascular surgery rec's) for secondary stroke prevention. Based on LDL cholesterol of 135, atorvastatin can be reduced to 40mg at discharge. At discharge he will continue with PT, OT, ST. She recommends to avoid hypotension due to carotid stenosis - goal SBP 130-150. Also recommendations for urgent outpatient follow-up with [facility] Vascular Surgery. hospital course complicated by PAF vs SVT, which was thought due to use of NoDoz, it is thought even if he has PAF, this was not cause of his stroke. He will be discharged on a cardiac event recorder. hospital course also complicated with orthostatic hypotension, tamsulosin discontinued and started on finestride. no further orthostasis noted on exam to have bilateral babinski noted on exam with reduced vibration in the toes. The bilateral findings would not be explained by his stroke or head imaging. He denies any balance problems. He has developed constipation in the last 1 year which he uses magnesium. He has also been struggling with urinary frequency/urgency in the last year which he attributed to BPH. These both could be signs of myelopathy. Therefore Dr Sears recommended a c-spine MRI w/o as further work-up. Results pending at discharge. he should follow up in neurology clinic in 4-6 weeks, plan will be to further evaluate memory/cognitive changes. discharge meds where discussed with Dr Pendleton at time of discharge, agree to stop lopressor that was started, his pulse has been in the 50's, with blood pressure today of 113/70 which is below recommendations with his degree of cartoid stenosis. Also, will resume home antidepressants rather than switch to sertraline. further antidepressant management per outpatient team. referral sent to [facility] vascular surgery, images were sent for review and call placed to call center for scheduling urgent appointment for symptomatic left carotid stenosis. discussed with Dr Posada. discharge discussed with Dr Garcia. Home Meds and New Rx's Prescriptions: New atorvastatin 40 mg Tablet 40 mg PO QPM Qty: 30 RF: 0 clopidogrel [Plavix] 75 mg Tablet 75 mg PO DAILY Qty: 30 RF: 0 aspirin 81 mg Tablet,Chewable 81 mg PO DAILY Qty: 30 RF: 0 finasteride 5 mg Tablet 5 mg PO DAILY Qty: 30 RF: 0 Continued acetaminophen 500 mg tablet 500 mg PO Q6H PRN (Reason: pain) Qty: 30 RF: 3 lorazepam 1 mg tablet 0.5 mg PO HS PRN (Reason: sleep) Qty: 30 RF: 1 mirtazapine [Remeron] 15 mg tablet 7.5 mg PO DAILY Qty: 45 RF: 3 magnesium oxide 400 mg magnesium tablet 800 mg PO DAILY RF: 0 vitamin B complex Capsule 2 cap PO DAILY RF: 0 Fish Oil 340-1,000 mg capsule 2 cap PO DAILY RF: 0 cholecalciferol (vitamin D3) [Vitamin D3] 50 mcg (2,000 unit) capsule 2,000 unit PO DAILY RF: 0 fluoxetine 40 mg capsule 40 mg PO DAILY Qty: 90 RF: 3 Centrum Silver 1 EACH tablet 1 cap PO DAILY RF: 0 Discontinued tamsulosin 0.4 mg capsule 0.4 mg PO DAILY Qty: 90 RF: 3 No Action tadalafil [Cialis] 5 mg tablet 5 - 20 mg PO DAILY PRN (Reason: sexual activity) Qty: 30 RF: 2 Discharge Instructions Instructions: Carotid Artery Disease (DC), Stroke (DC) Additional Instructions: speech therapy recommendations: solids: soft and bite size liquids: thin medication: 1 whole pill at a time with liquid. Pt may also trial pills in puree/pudding if needed. Small single sips only (1 small sip, cup down, swallow, then repeat). Pace rate of intake. Small bites and sips. Foods cut small. Alternate liquids and solids (take a drink every couple of bites). Avoid straws at this time pending re-assessment. Ensure complete mastication and swallow before next bite. Check oral cavity frequently and encourage use of lingual sweep to clear residue. Remain upright for at least 30 minutes after meals. Oral care no less than 2x/day with toothbrush and cleaning agent. Posture/Positioning Needs: Out of bed and in a chair for all meals. Fully upright. Stand Alone Forms: Nursing Discharge Form Referrals: Aj Pendleton [Primary Care Provider] - 04/07/21 1:40 pm Flor Mejia [ NON-[facility] STAFF PHYSICIAN] - (one week) Activity:: Activity as Tolerated Equipment/Supplies:: No Equipment Needed Diet:: Normal Diet Discharge Orders Discharge Orders: Discharge Order (Routine); Ordered 03/22/21 Ordered By: Adamaris Cervantes Other Ambulatory Orders: Cardiac Event Recorder (Routine) Timeframe: [id number] Facility: [facility] - Location: Respiratory Therapy Ordered By: Adamaris Cervantes Discharge Data Discharge Date/Time-TO BE ENTERED AT DEPARTURE: 03/22/21 16:30 DS: Summary Time Spent with Patient providing and/or coordinating discharge services: Greater than 30 minutes Status at Discharge Functional status at discharge: independent ambulation Overall status at discharge: patient is progressing back to baseline Mental Status: mental status grossly normal Speech and Movement: speech and movement normal Mood: congruent mood Affect: normal affect Exam Const General: cooperative, comfortable and no acute distress Nutritional Appearance: average body habitus Orientation: alert and awake HENMT Head: normal to inspection and atraumatic Face and sinus: face asymmetric (right sided droop) and other Mouth: moist mucous membranes Eyes General: appearance normal, both eyes and all related structures Sclera: sclerae normal Pupils: PERRL EOM: EOM intact bilaterally Neck Neck: full ROM and no JVD Chest Chest: normal inspection of the chest Resp Effort & Inspection: normal respiratory effort and not able to speak in complete sentences Auscultation: clear to auscultation bilaterally Cardio Jugular venous pressure: no JVD Rate: regular rate Rhythm: regular rhythm GI Inspection: normal to inspection Palpation: soft Auscultation: normal bowel sounds Skin Wounds: wounds noted (right palm) Neuro General: patient alert, patient awake, tone normal and moves all extremities Cranial Nerves: PERRL Motor: muscle tone normal throughout and strength 5/5 throughout Coordination: [id number] test normal and rapid alternating movement UE normal Extrem Right upper extremity: normal to inspection Psych Mental Status: mental status grossly normal Speech and Movement: speech and movement normal Mood: congruent mood Affect: normal affect DS: Data Vitals/I&O Vitals and I&O: Vital Signs Temperature 36.7 C 03/22/21 10:50 Temperature Source Tympanic 03/22/21 10:50 Pulse 52 L 03/22/21 11:24 Pulse Rhythm Regular 03/22/21 08:43 Pulse 66 03/17/21 11:20 Respiratory Rate 18 03/22/21 10:50 Respiratory Effort Non-Labored 03/22/21 08:43 Respiratory Depth Normal 03/22/21 08:43 Respiratory Pattern Normal 03/22/21 08:43 Blood Pressure 113/70 03/22/21 10:50 Blood Pressure Mean 100 03/17/21 11:16 Blood Pressure Position Sitting 03/17/21 09:50 Pulse Oximetry 97 03/22/21 10:50 Oxygen Delivery Method Room Air 03/22/21 10:50 Oxygen Flow Rate 0 03/22/21 10:50 Pain Level 0 03/22/21 10:50 Comment 03/20/21 19:54 Intake & Output 03/21/21 03/22/21 03/22/21 23:59 11:59 23:59 Intake Total 210 / 930 240 / 690 450 / 690 Output Total 96 / 96 Balance 210 / 729 240 / 594 354 / 594 Intake: IV Oral 200 / 920 240 / 690 450 / 690 Output: Post Void Residual 96 / 96 Other: Urine Color Yellow Yellow Urine Appearance Clear Clear Comment Jared is indept w/ voiding w/ retention. Bladder scan post void to monitor for retention. patient up tp BR unknown amount due to patient flushing after void. Voiding Methods Toilet Toilet Toilet [facility] Medical History Benign prostatic hyperplasia continue on tamsulosin Depressive disorder Diverticulosis of colon without diverticulitis DNI (do not intubate) DNR (do not resuscitate) Dysarthria Erectile dysfunction Fatigue Hypertension Migraine Mitral valve regurgitation (09/19/92) F/U with PCP Dr. Pendleton Numbness of right hand Palliative care patient Ventricular tachycardia (03/07/15) by event monitor 03/03/15 10 beat run - pt asymptomatic F/U with PCP Dr. Pendleton Vertigo Surgical History Colonoscopy - MAC (11/25/17) 2002, 2006 Cubital tunnel syndrome on right s/p ulnar nerve decompression DOS: 08/09/2020 History of carpal tunnel surgery of right wrist (~1981) Open knee repair (~2003) 2003;RIGHT KNEE; cartilage removed. 10/02; UNSURE OF PROCEDURE Right carpal tunnel syndrome S/p ECTR DOS: 08/09/2020 Family History Mother Neoplasm BREAST Stroke Father No problems noted. Sister No problems noted. Brother No problems noted. Grandfather No problems noted. Grandfather No problems noted. Grandmother No problems noted. Grandmother No problems noted. Son No problems noted. Daughter No problems noted. Daughter No problems noted. Social History Smoking/Tobacco Use Status: Never Smoking risk assessment performed?: Yes Alcohol Intake: never Drug use: Never Substance use type: does not use Household members: spouse Housing: house Number of Children: 3 number of grandchildren: 4 Current gender identity: male What is your relationship status?: Panel score (0-1 are the most socially isolated patients): 1 What type of physical activity do you participate in: walking Seatbelt use: always Do you feel safe at home: Yes Do you feel safe in your relationship?: Yes
--- NOTE | 2021-03-22 15:59 | PT.INNT ---
Date of service: 03/22/21 Time of Service: 15:59 PT Notes Visit Reasons: Cerebrovascular accident 03/22/2021 Patient refused PT. Patient reports that he is going home today, and when asked if he would like to participate in PT he states no, I'm good right here.
--- NOTE | 2021-03-22 18:43 | PDOC.CMDIS ---
- If Service Date Differs Date of service: 03/22/21 Time of Service: 18:44 LACE Index Scoring Tool - Questions: Length of Stay (in days): 4 - 6 Acuity (Admit via E.D.?): Yes E.D. Visits: 1 - Answers: Total Score: 8 Risk of Readmission: Low Risk Care Management Discharge Reason for Hospitalization: CVA. Discharge Plan: Dima will return home today with new orders for [facility] RN, PT, ST. CM informed [facility] of his discharge today. His will drive him home via private vehicle. A referral was sent to Vascular Surgery by [facility], and the patient was discussed with Dr. Mejia by Brionna Cervantes NP. He will also follow up with his PCP and discharge plan of care. He is happy to be going home. Patient/Family Education Needs: Review discharge instructions regarding activity levels and medications, discussion of self care needs and goals of care. Services Needed at Discharge: Home Health Care Services ([facility] RN, PT, ST)
== END 2021-03-22 16:30 | disposition home health service (06) | DRG 65 ==
LOC: ER 13:24 → MS 14:34
PROVIDERS: Internal Medicine; Nurse Practitioner Family; Admitting Provider Family Medicine; Emergency Provider Physician Assistant; PCP Family Medicine; Visit Provider Family Medicine
DX: I63.132 Cerebral infarction due to embolism of left carotid artery (principal); G81.91 Hemiplegia, unspecified affecting right dominant side; I47.1 Supraventricular tachycardia; R13.10 Dysphagia, unspecified; I10 Essential (primary) hypertension; N40.0 Benign prostatic hyperplasia without lower urinary tract symptoms; F41.9 Anxiety disorder, unspecified; F32.9 Major depressive disorder, single episode, unspecified; G43.909 Migraine, unspecified, not intractable, without status migrainosus; I34.0 Nonrheumatic mitral (valve) insufficiency; K57.30 Diverticulosis of large intestine without perforation or abscess without bleeding; Z20.822 Contact with and (suspected) exposure to COVID-19; I95.1 Orthostatic hypotension; F39 Unspecified mood [affective] disorder; G56.21 Lesion of ulnar nerve, right upper limb; F03.90 Unspecified dementia, unspecified severity, without behavioral disturbance, psychotic disturbance, mood disturbance, and anxiety; R47.1 Dysarthria and anarthria; R29.810 Facial weakness; I48.91 Unspecified atrial fibrillation; R29.2 Abnormal reflex
CPT/HCPCS: 36415; 36416; 70496; 70498; 80048; 80053; 80061; 82962; 85027; 87635; 92526; 92610; 93270; 93306; 97162; 97165; 97530; 97535; 99223; 99291; 70551; 71046; 72125; 72141; 81003; 83036; 83735; 84484; 85025; 85610; 85730; 93005; 93010; 93880; 99231; 99232; 99233; 99239; J1644; J3490

== ENCOUNTER → 2021-03-21 08:10 | Outpatient (BNVA) | payer MEDICARE, SELFPAY | PROVIDERS: PCP Family Medicine; Referring Provider Family Medicine; Visit Provider Psychiatry & Neurology Neurology | DX: R69 Illness, unspecified (principal) ==

== ENCOUNTER → 2021-03-27 14:15 | Outpatient (BNVA) | payer MEDICARE, SELFPAY ==
--- NOTE | 2021-04-25 08:42 | W.CARDEVENT ---
Date of service: 04/25/21 Time of Service: 08:42 Cardiac Event Recorder Referring Provider:: Shelly Indications:: Arrhythmia Cardiac Event Note: This is a 30-day monitor order for indication of arrhythmia. The monitor was worn for a total of 11 days and 21 hours. ?The patient was normal sinus rhythm for the majority of the recording with an average heart of 77 bpm. ?There were 4 automatically detected events to which were associated with NSVT of 4 beats and 7 beats. ?There were no episodes of atrial fibrillation, no pauses greater than 3 seconds and no evidence of high degree heart block. ?There was 1 patient triggered event which was not associated with any significant arrhythmia.
== END ==
PROVIDERS: PCP Family Medicine; Referring Provider Family Medicine; Visit Provider Psychiatry & Neurology Neurology
DX: I69.351 Hemiplegia and hemiparesis following cerebral infarction affecting right dominant side (principal); I69.891 Dysphagia following other cerebrovascular disease; I65.22 Occlusion and stenosis of left carotid artery; R41.3 Other amnesia; N40.1 Benign prostatic hyperplasia with lower urinary tract symptoms; R35.0 Frequency of micturition; K59.00 Constipation, unspecified; F32.9 Major depressive disorder, single episode, unspecified
CPT/HCPCS: 99215; G2212

== ENCOUNTER → 2021-03-28 15:00 | Outpatient (BNVA) | payer MEDICARE, SELFPAY | PROVIDERS: PCP Family Medicine; Referring Provider Family Medicine; Visit Provider Nurse Practitioner Gerontology | DX: N40.1 Benign prostatic hyperplasia with lower urinary tract symptoms (principal); N13.8 Other obstructive and reflux uropathy; K59.00 Constipation, unspecified | CPT/HCPCS: 99214 ==

== ENCOUNTER 2021-04-25 08:42 | Outpatient (CLI) | payer MEDICARE, SELFPAY | END 2021-04-25 08:43 | LOC: CARDO 06-09 16:02 | PROVIDERS: PCP Family Medicine; Referring Provider Nurse Practitioner Acute Care; Visit Provider Internal Medicine Cardiovascular Disease | DX: I49.8 Other specified cardiac arrhythmias (principal); I47.2 Ventricular tachycardia; Z53.20 Procedure and treatment not carried out because of patient's decision for unspecified reasons | CPT/HCPCS: 93272 ==

== ENCOUNTER → 2021-05-31 12:42 | Outpatient (BNVA) | payer MEDICARE, SELFPAY | PROVIDERS: PCP Family Medicine; Referring Provider Family Medicine; Visit Provider Psychiatry & Neurology Neurology | DX: I63.9 Cerebral infarction, unspecified (principal); R29.2 Abnormal reflex; I65.22 Occlusion and stenosis of left carotid artery; K59.00 Constipation, unspecified; F39 Unspecified mood [affective] disorder; G30.9 Alzheimer's disease, unspecified; F02.80 Dementia in other diseases classified elsewhere, unspecified severity, without behavioral disturbance, psychotic disturbance, mood disturbance, and anxiety | CPT/HCPCS: 99215; G2212 ==

== ENCOUNTER 2021-06-23 11:16 | Emergency (ER) | payer MEDICARE, SELFPAY ==
[2021-06-23] VITALS (27 sets, daily range): BP systolic 193–219; BP diastolic 81–98; PULSE 52–73; RESP 12–25; TEMP 36.3; O2SAT 97–99
--- NOTE | 2021-06-23 11:15 | RT.EKG_ITS ---
APPROVED REPORT Exam: Resting ECG Reason for Exam: Dizzy Patient Location: E HR:60 bpm ECG Measurements Heart Rate 60 AXIS WI 180 P -36 QRSd 105 QRS -56 QT 438 T 27 QTc 439 Conclusion Sinus rhythm...normal P axis, V-rate 60- 99 Left anterior fascicular block...axis(240,-40), init forces inf Left ventricular hypertrophy...multiple voltage criteria
--- NOTE | 2021-06-23 11:45 | DI.MRI_ITS ---
Exam(s) MR BRAIN WO EXAM: MR BRAIN WO CLINICAL HISTORY: intermittent slurred speech, prior cva TECHNIQUE: Multiplanar multisequence MRI of the brain was performed. COMPARISON: MR MR BRAIN WO from 03/17/2021 FINDINGS: There is moderate generalized cerebral atrophy and there are scattered areas of abnormal signal in pe riventricular white matter consistent with microvascular ischemic changes. No other significant sign al abnormality identified in the brain. The orbital and temporal bone structures appear intact as does the pituitary. Diffusion weighted imaging shows no evidence of infarction. Susceptibility weighted imaging shows no evidence of intracranial hemorrhage. There is normal flow void in the [place] vasculature. IMPRESSION: No evidence of acute intracranial process. No evidence of infarction. DATA REPOSITORY:
--- NOTE | 2021-06-23 11:46 | W.ED.GENAD ---
Discharge Plan Disposition Patient Disposition: HOME Condition: Stable Discharge Details Clinical Impression: Dizziness, Hypertension Primary Care Provider: Aj Pendleton ED Provider: Driss Ridley Home Meds and New Rx's Prescriptions: Continued acetaminophen 500 mg tablet 500 mg PO Q6H PRN (Reason: pain) Qty: 30 RF: 3 tamsulosin 0.4 mg capsule 0.2 mg PO QHS Qty: 45 RF: 3 atorvastatin 80 mg tablet 80 mg PO QHS Qty: 90 RF: 3 vitamin B complex Capsule 2 cap PO DAILY RF: 0 tadalafil [Cialis] 5 mg tablet 5 - 20 mg PO DAILY PRN (Reason: sexual activity) Qty: 30 RF: 2 Linzess 145 mcg capsule 145 mcg PO QAM PRNRF: 0 magnesium oxide 500 mg capsule 1,000 mg PO DAILY RF: 0 fluoxetine 20 mg capsule 40 mg PO DAILY Qty: 90 RF: 3 galantamine 4 mg tablet 4 mg PO BID Qty: 60 RF: 0 caffeine 200 mg tablet 200 mg PO BID PRN (Reason: fatigue) Qty: 60 RF: 0 Fish Oil 340-1,000 mg capsule 2 cap PO DAILY RF: 0 Centrum Silver 1 EACH tablet 1 cap PO DAILY RF: 0 aspirin 81 mg Tablet,Chewable 81 mg PO DAILY Qty: 30 RF: 0 Discharge Instructions Instructions: Hypertension (ED) Additional Instructions: your blood work showed a mild increase in liver function tests which could be from your statin and as long as you don't have abdomen pain this should not cause any issues your mri did not show any evidence of a new stroke follow up with your primary care provider next week and discuss starting a blood pressure medicine if you feel more ill, have fevers, chest pain, difficulty breathing return to the emergency department Medical Decision Making 81 yo male with hx of prior cva and cea, hld, who comes in with weeks of waking up and feeling lightheaded when standing, intermittent confusion per the and intermittent slurred speech. He called his pcp's office this morning and the nurse advised he come here. He currently denies any new symptoms, has chronic numbness in right thumb and index finger from carpal tunnel. He denies headache, fever, chest pain, weakness. He is caox4. He has stable gait, no focal motor or sensation deficits, clear speech, perrl, eomi, nih on my exam is 0 and symptoms have been going on intermittently for weeks. This seems unlikely to be a cva but would be outside the window for any treatment. I suspect the lightheadedness is from orthostasis as only happens in the morning. Given his history will obtain mri of the brain. Will also evaluate for anemia and electrolyte abnormalities, doubt infection as he has no fevers/chills or other infectious symptoms pt's lfts mildly increased which I suspect is from his statin, has no gi symptoms and no tenderness on exam. MRI shows no acute pathology. He remains stable and has no symptoms currently. He has been noted to be hypertensive here and I offered to initiate an oral antihypertensive here but he declined as he wants to discuss with his pcp first. He has no chest pain, severe headache or other symptoms to suggest hypertensive emergency. Will have him see his pcp this week and return precautions given Differential Diagnosis Differential Diagnosis: cva, cognitive impairment, electrolyte abnormality Medical Records Medical records reviewed: Yes I reviewed the patient's medical records. Imaging Data Radiologic Study: Attestation: I personally reviewed and interpreted this imaging study as follows: Imaging: MRI Radiologist's impression: IMPRESSION: No evidence of acute intracranial process. No evidence of infarction. Lab Data Lab results reviewed: Yes I reviewed the patient's lab results. ECG Data Attestation: I personally reviewed and interpreted this ECG (s) as follows: Prior ECG tracings: available for review Interpretation: sinus rhythm, rate of 60, no acute st t wave ischemic changes HPI General Mode of arrival: ambulatory. Date/Time Provider Initiated Documentation: 06/23/21 11:16. Limitations to Documentation: no limitations. Information obtained by: patient and family. History of Present Illness 81 year old M presents to the emergency department with the chief complaint of intermittent confusion, described as moderate, Patient started experiencing this week(s) (2) and it has been intermittent. No relieving factors improve symptom(s), No exacerbating factors reported . Related Data Home Medications Medication Instructions Recorded Confirmed Centrum Silver 1 cap PO DAILY 09/21/13 06/23/21 omega-3 fatty acids-fish oil 340 2 cap PO DAILY cap 04/05/20 06/23/21 mg-1,000 mg capsule vitamin B complex 2 cap PO DAILY cap 04/05/20 06/23/21 acetaminophen 500 mg tablet 500 mg PO Q6H PRN #30 tab 08/09/20 06/23/21 tadalafil 5 mg tablet 5 - 20 mg PO DAILY PRN #30 tab 08/30/20 06/23/21 aspirin 81 mg PO DAILY #30 tab 03/22/21 06/23/21 tamsulosin 0.4 mg capsule 0.2 mg PO QHS #45 cap 03/27/21 06/23/21 atorvastatin 80 mg tablet 80 mg PO QHS #90 tab 04/05/21 06/23/21 linaclotide 145 mcg capsule 145 mcg PO QAM PRN cap 05/31/21 06/23/21 magnesium oxide 500 mg capsule 1,000 mg PO DAILY cap 05/31/21 06/23/21 caffeine 200 mg tablet 200 mg PO BID PRN #60 tab 06/08/21 06/23/21 fluoxetine 20 mg capsule 40 mg PO DAILY #90 cap 06/08/21 06/23/21 galantamine 4 mg tablet 4 mg PO BID #60 tab 06/08/21 06/23/21 Previous Rx's Medication Instructions Recorded acetaminophen 500 mg tablet 500 mg PO Q6H PRN #30 tab 08/09/20 tadalafil 5 mg tablet 5 - 20 mg PO DAILY PRN #30 tab 08/30/20 aspirin 81 mg PO DAILY #30 tab 03/22/21 tamsulosin 0.4 mg capsule 0.2 mg PO QHS #45 cap 03/27/21 atorvastatin 80 mg tablet 80 mg PO QHS #90 tab 04/05/21 caffeine 200 mg tablet 200 mg PO BID PRN #60 tab 06/08/21 fluoxetine 20 mg capsule 40 mg PO DAILY #90 cap 06/08/21 galantamine 4 mg tablet 4 mg PO BID #60 tab 06/08/21 Allergies Allergy/AdvReac Type Severity Reaction Status Date / Time bupropion [From Wellbutrin] AdvReac Severe constipation, Verified 06/23/21 11:27 made him worse General Stated Complaint: GenMedical JERARDO: 3 Review of Systems All systems reviewed & are unremarkable except as noted in HPI and below Constitutional Constitutional: Denies chills and Denies fever(s) Cardiovascular Cardiovascular: Denies chest pain and Denies dyspnea Respiratory Respiratory: Denies cough and Denies dyspnea Gastrointestinal Gastrointestinal: Denies abdominal pain, Denies nausea and Denies vomiting Musculoskeletal Musculoskeletal: Denies joint swelling Psychiatric Psychiatric: Denies depression [facility] Medical History (Updated 06/23/21 @ 13:39 by Driss Ridley MD) Benign prostatic hyperplasia continue on tamsulosin Depressive disorder Diverticulosis of colon without diverticulitis DNI (do not intubate) DNR (do not resuscitate) Dysarthria 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 Pendleton Vertigo Surgical History Colonoscopy - MAC (11/25/17) 2002, 2006 Cubital tunnel syndrome on right s/p ulnar nerve decompression DOS: 08/09/2020 History of carotid endarterectomy February 2021, following stroke History of carpal tunnel surgery right hand, twice History of carpal tunnel surgery of right wrist (~1981) Open knee repair (~2003) 2003;RIGHT KNEE; cartilage removed. 10/02; UNSURE OF PROCEDURE Right carpal tunnel syndrome S/p ECTR DOS: 08/09/2020 Family History (Updated 06/08/21 @ 19:36 by Meredith Byers MD) Mother Neoplasm BREAST Stroke Daughter Mild cognitive impairment Depression Son No problems noted. Daughter No problems noted. 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 Do you think of yourself as: straight/heterosexual Current gender identity: male What is your relationship status?: How often do you talk on the phone with friends or family?: once per week How often do you get together with friends or relatives?: three or more times per week How often do you attend jain or moravian services?: 4 or more times per year Do you belong to any clubs or organized social groups?: yes Panel score (0-1 are the most socially isolated patients): 4 What type of physical activity do you participate in: walking and additional Details: likes to garden; recovering from stroke enough to do s Duration: other Details: doesn't like to sit still usually, mows lawn (rider mower) rakes Frequency: daily Nereida/Buddhism: Scientology Special nereida needs: No Seatbelt use: always Working smoke detector in home: Yes Fire extinguisher in home: Yes Do you feel safe at home: Yes Do you feel safe in your relationship?: Yes Additional Social history: Mr Norton presented with his daughter Monae Castellon and his , Hayde. He has two other children; his son lives in [facility] and his other daughter lives in [place]. Monae is their main support person. His has been struggling with her memory. Jared is very moravian. Rico is my best friend. Usually attends a Scientology men's group, but hasn't been meeting due to COVID. He doesn't mind being alone. Loves to sit on his back porch and watch wildlife. Never very outgoing or social. Exam Const General: no acute distress Orientation: alert HENMN Head: normal to inspection Ears: external ears normal General nose exam: external nose normal Mouth: moist mucous membranes Eyes General: appearance normal, both eyes and all related structures Neck Neck: normal visual inspection Resp Effort & Inspection: normal respiratory effort and able to speak in complete sentences Cardio Rate: regular rate Skin General skin exam: no rashes or lesions noted Neuro General: patient alert and patient oriented x3 Extrem General: normal to inspection Psych Mental Status: mental status grossly normal Course Vital Signs Vital signs: Vital Signs Temperature 36.3 C L 06/23/21 11:20 Pulse 73 06/23/21 11:20 Respiratory Rate 14 06/23/21 11:20 Blood Pressure 207/98 H 06/23/21 11:20 Pulse Oximetry 98 06/23/21 11:20 Temperature 36.3 C L 06/23/21 11:20 Temperature Source Skin 06/23/21 11:20 Pulse 60 06/23/21 11:31 Pulse 61 06/23/21 11:31 Respiratory Rate 17 06/23/21 11:31 Respiratory Effort Non-Labored 06/23/21 11:30 Respiratory Depth Normal 06/23/21 11:30 Respiratory Pattern Normal 06/23/21 11:30 Blood Pressure 193/95 H 06/23/21 11:31 Blood Pressure Mean 119 06/23/21 11:31 Blood Pressure Position Supine 06/23/21 11:20 Pulse Oximetry 99 06/23/21 11:31 Oxygen Delivery Method Room Air 06/23/21 11:20 Oxygen Flow Rate 0 06/23/21 11:20 Pain Level 0 06/23/21 11:20
[2021-06-23 11:53] LABS: Abs Immature Grans 0.03 10^3/uL (0.0-0.06); Absolute Basophil Count 0.04 10^3/uL (0.0-0.2); Absolute Eosinophil Count 0.12 10^3/uL (0.0-0.7); Absolute Lymphocyte Count 0.79 10^3/uL (1.2-3.4); Absolute Monocyte Count 0.47 10^3/uL (0.1-0.8); Absolute Neutrophil Count 3.84 10^3/uL (1.2-6.7); Basophils % 0.8; Eosinophils % 2.3; HCT 43.1 % (40.0-50.0); Immature Grans % 0.6; Lymphocytes % 14.9; MCH 29.4 pg (27.0-33.0); MCHC 32.5 % (32.0-36.0); MCV 90.5 fL (80-95); MPV 9.2 fL (8.0-11.0); Monocytes % 8.9; Neutrophils % 72.5; Nucleated RBC 0 %; Platelet Count 166 10^3/uL (130-400); RBC 4.76 10^6/uL (4.36-5.78); RDW 13.4 % (11.8-14.1); RDW-SD 45.1 fL; WBC 5.29 10^3/uL (4.4-10.8)
[2021-06-23 12:02] LABS: Magnesium 2.4 mg/dL (1.8-2.4)
[2021-06-23 12:10] LABS: Bilirubin Negative (Negative); Blood Negative (Negative); Clarity Cloudy (Clear); Glucose Negative (Negative); Ketones Negative (Negative); Leukocyte Esterase Negative (Negative); Nitrite Negative (Negative); Specific Gravity 1.015 (1.005-1.025); Urobilinogen 0.2 EU/dL (Up TO 0.2); pH 7.5 (5-8)
[2021-06-23 12:10] LABS: ALT 92 U/L (16-63); AST 45 U/L (15-37); Alkaline Phosphatase 149 U/L (46-116); Anion Gap 8.5 mmol/L (3-11); BUN 14 mg/dL (7-18); Bilirubin, Total 0.8 mg/dL (0.2-1.0); CO2 29.5 mmol/L (21.0-32.0); CREATININE 1.2 mg/dL (0.70-1.30); Calcium 9.5 mg/dL (8.5-10.1); Chloride 104 mmol/L (98-107); Estimated GFR 58.11 (mL/min/1.73m2); Glucose 109 mg/dL (74-106); Potassium 4.3 mmol/L (3.5-5.1); Sodium 142 mmol/L (136-145); Total Protein 7.7 g/dL (6.4-8.2)
[2021-06-23 12:13] LABS: Troponin I < 0.05 ng/mL (<0.06)
[2021-06-23 12:18] LABS: TSH (W/Ref FT4) 1.87 uIU/mL (0.36-3.74)
--- NOTE | 2021-06-23 17:42 | NUR.NOTE ---
Nursing Note: Referral to care management to follow up with pcp for dizziness and BP - libl 06/23/21
== END 2021-06-23 13:51 | disposition home or self-care (01) ==
PROVIDERS: Emergency Provider Emergency Medicine; PCP Family Medicine
DX: R42 Dizziness and giddiness (principal); I10 Essential (primary) hypertension; R41.0 Disorientation, unspecified; Z86.73 Personal history of transient ischemic attack (TIA), and cerebral infarction without residual deficits; R47.81 Slurred speech
CPT/HCPCS: 36415; 80053; 93005; 99285; 70551; 81003; 83735; 84443; 84484; 85025; 85610; 85730; 93010; 99284

== ENCOUNTER → 2021-07-03 14:22 | Outpatient (BNVA) | payer MEDICARE, SELFPAY | PROVIDERS: PCP Family Medicine; Referring Provider Family Medicine; Visit Provider Nurse Practitioner Gerontology | DX: N40.1 Benign prostatic hyperplasia with lower urinary tract symptoms (principal); N13.8 Other obstructive and reflux uropathy | CPT/HCPCS: 99214 ==

== ENCOUNTER → 2021-07-24 08:27 | Outpatient (BNVA) | payer MEDICARE, SELFPAY | PROVIDERS: PCP Family Medicine; Referring Provider Family Medicine; Visit Provider Nurse Practitioner Gerontology | DX: R42 Dizziness and giddiness (principal); N40.1 Benign prostatic hyperplasia with lower urinary tract symptoms; N13.8 Other obstructive and reflux uropathy | CPT/HCPCS: 99443 ==

== ENCOUNTER → 2021-08-08 14:40 | Outpatient (BNVA) | payer MEDICARE, SELFPAY | PROVIDERS: PCP Family Medicine; Referring Provider Family Medicine; Visit Provider Psychiatry & Neurology Neurology | DX: R29.2 Abnormal reflex (principal); I65.22 Occlusion and stenosis of left carotid artery; I63.9 Cerebral infarction, unspecified; K59.00 Constipation, unspecified; F39 Unspecified mood [affective] disorder; G30.9 Alzheimer's disease, unspecified; F02.80 Dementia in other diseases classified elsewhere, unspecified severity, without behavioral disturbance, psychotic disturbance, mood disturbance, and anxiety | CPT/HCPCS: 99214 ==

== ENCOUNTER → 2021-09-21 11:08 | Outpatient (BNVA) | payer MEDICARE, SELFPAY | PROVIDERS: PCP Family Medicine; Referring Provider Family Medicine; Visit Provider Psychiatry & Neurology Neurology | DX: R29.2 Abnormal reflex (principal); I65.22 Occlusion and stenosis of left carotid artery; I63.9 Cerebral infarction, unspecified; K59.00 Constipation, unspecified; F39 Unspecified mood [affective] disorder; G30.9 Alzheimer's disease, unspecified; F02.80 Dementia in other diseases classified elsewhere, unspecified severity, without behavioral disturbance, psychotic disturbance, mood disturbance, and anxiety; G56.21 Lesion of ulnar nerve, right upper limb; G56.03 Carpal tunnel syndrome, bilateral upper limbs | CPT/HCPCS: 95910; 99214 ==

== ENCOUNTER 2021-10-26 19:15 | Outpatient (REF) | payer MEDICARE, SELFPAY ==
[2021-10-26 20:38] LABS: Abs Immature Grans 0.02 10^3/uL (0.0-0.06); Absolute Basophil Count 0.03 10^3/uL (0.0-0.2); Absolute Eosinophil Count 0.07 10^3/uL (0.0-0.7); Absolute Lymphocyte Count 0.88 10^3/uL (1.2-3.4); Absolute Monocyte Count 0.57 10^3/uL (0.1-0.8); Absolute Neutrophil Count 3.96 10^3/uL (1.2-6.7); Basophils % 0.5; Eosinophils % 1.3; HCT 39.1 % (40.0-50.0); HGB 12.8 g/dL (13.5-17.5); Immature Grans % 0.4; Lymphocytes % 15.9; MCHC 32.7 % (32.0-36.0); MCV 91.8 fL (80-95); Monocytes % 10.3; Neutrophils % 71.6; Nucleated RBC 0 %; Platelet Count 151 10^3/uL (130-400); RBC 4.26 10^6/uL (4.36-5.78); RDW 13.6 % (11.8-14.1); RDW-SD 46.2 fL; WBC 5.53 10^3/uL (4.4-10.8)
[2021-10-26 21:19] LABS: ALT 53 U/L (16-63); AST 29 U/L (15-37); Albumin 3.7 g/dL (3.4-5.0); Alkaline Phosphatase 105 U/L (46-116); Anion Gap 5.8 mmol/L (3-11); BUN 14 mg/dL (7-18); Bilirubin, Total 0.6 mg/dL (0.2-1.0); CO2 29.2 mmol/L (21.0-32.0); CREATININE 1.2 mg/dL (0.70-1.30); Calcium 8.8 mg/dL (8.5-10.1); Chloride 106 mmol/L (98-107); Estimated GFR 58.11 (mL/min/1.73m2); Glucose 102 mg/dL (74-106); Sodium 141 mmol/L (136-145); Total Protein 6.5 g/dL (6.4-8.2)
== END 2021-10-26 19:16 | disposition home or self-care (01) ==
LOC: LBN 19:15
PROVIDERS: PCP Family Medicine; Visit Provider Physician Assistant Medical
DX: R42 Dizziness and giddiness (principal); F02.80 Dementia in other diseases classified elsewhere, unspecified severity, without behavioral disturbance, psychotic disturbance, mood disturbance, and anxiety
CPT/HCPCS: 80053; 85025

== ENCOUNTER 2021-11-01 11:52 | Outpatient (REF) | payer MEDICARE, SELFPAY ==
[2021-11-03 15:09] LABS: COVID-19 RT-PCR UVMMC Result Negative (Negative)
== END 2021-11-01 11:53 | disposition home or self-care (01) ==
LOC: LBN 11:52
PROVIDERS: PCP Family Medicine; Visit Provider Family Medicine
DX: Z20.822 Contact with and (suspected) exposure to COVID-19 (principal)
CPT/HCPCS: U0003

== ENCOUNTER → 2021-11-07 14:13 | Outpatient (BNVA) | payer MEDICARE, SELFPAY | PROVIDERS: PCP Family Medicine; Visit Provider Psychiatry & Neurology Neurology | DX: I63.9 Cerebral infarction, unspecified (principal); R29.2 Abnormal reflex; F39 Unspecified mood [affective] disorder; G30.9 Alzheimer's disease, unspecified; F02.80 Dementia in other diseases classified elsewhere, unspecified severity, without behavioral disturbance, psychotic disturbance, mood disturbance, and anxiety | CPT/HCPCS: 99214 ==

== ENCOUNTER → 2021-12-25 14:13 | Outpatient (BNVA) | payer MEDICARE, SELFPAY | PROVIDERS: PCP Family Medicine; Referring Provider Family Medicine; Visit Provider Psychiatry & Neurology Neurology | DX: I69.391 Dysphagia following cerebral infarction (principal); I69.331 Monoplegia of upper limb following cerebral infarction affecting right dominant side; N40.1 Benign prostatic hyperplasia with lower urinary tract symptoms; N13.8 Other obstructive and reflux uropathy; R29.2 Abnormal reflex; F39 Unspecified mood [affective] disorder; G30.9 Alzheimer's disease, unspecified; F02.80 Dementia in other diseases classified elsewhere, unspecified severity, without behavioral disturbance, psychotic disturbance, mood disturbance, and anxiety; G56.21 Lesion of ulnar nerve, right upper limb; G56.01 Carpal tunnel syndrome, right upper limb; G56.02 Carpal tunnel syndrome, left upper limb | CPT/HCPCS: 99214 ==

== ENCOUNTER → 2022-01-16 10:08 | Outpatient (BNVA) | payer MEDICARE, SELFPAY | PROVIDERS: PCP Family Medicine; Referring Provider Family Medicine; Visit Provider Psychiatry & Neurology Neurology | DX: I69.351 Hemiplegia and hemiparesis following cerebral infarction affecting right dominant side (principal); I69.322 Dysarthria following cerebral infarction; Z79.82 Long term (current) use of aspirin; R42 Dizziness and giddiness; R29.2 Abnormal reflex; F39 Unspecified mood [affective] disorder; G30.9 Alzheimer's disease, unspecified; F02.80 Dementia in other diseases classified elsewhere, unspecified severity, without behavioral disturbance, psychotic disturbance, mood disturbance, and anxiety; G56.03 Carpal tunnel syndrome, bilateral upper limbs | CPT/HCPCS: 99214 ==

== ENCOUNTER → 2022-02-13 12:20 | Outpatient (BNVA) | payer MEDICARE, SELFPAY | PROVIDERS: PCP Family Medicine; Referring Provider Family Medicine; Visit Provider Psychiatry & Neurology Neurology | DX: I69.351 Hemiplegia and hemiparesis following cerebral infarction affecting right dominant side (principal); Z79.82 Long term (current) use of aspirin; Z79.02 Long term (current) use of antithrombotics/antiplatelets; R29.2 Abnormal reflex; F39 Unspecified mood [affective] disorder; G30.9 Alzheimer's disease, unspecified; F02.80 Dementia in other diseases classified elsewhere, unspecified severity, without behavioral disturbance, psychotic disturbance, mood disturbance, and anxiety; G56.21 Lesion of ulnar nerve, right upper limb; G56.01 Carpal tunnel syndrome, right upper limb; G56.02 Carpal tunnel syndrome, left upper limb | CPT/HCPCS: 99215 ==

== ENCOUNTER 2022-02-19 02:45 | Outpatient (CLI) | payer MEDICARE, SELFPAY | END 2022-02-19 02:46 | disposition home or self-care (01) | LOC: LOS 02:45 | PROVIDERS: PCP Family Medicine; Visit Provider Family Medicine ==

== ENCOUNTER 2022-02-19 10:06 | Outpatient (CLI) | payer MEDICARE, SELFPAY ==
[2022-02-19 10:50] LABS: Anion Gap 5.9 mmol/L (3-11); BUN 23 mg/dL (7-18); CO2 30.1 mmol/L (21.0-32.0); CREATININE 1.4 mg/dL (0.70-1.30); Calcium 9.3 mg/dL (8.5-10.1); Chloride 104 mmol/L (98-107); Estimated GFR 48.52 (mL/min/1.73m2); Glucose 144 mg/dL (74-106); Potassium 4.1 mmol/L (3.5-5.1); Sodium 140 mmol/L (136-145)
== END 2022-02-19 10:07 | disposition home or self-care (01) ==
LOC: LBO 10:17
PROVIDERS: PCP Family Medicine; Visit Provider Family Medicine
DX: I10 Essential (primary) hypertension (principal)
CPT/HCPCS: 36415; 80048

== ENCOUNTER → 2022-03-06 08:17 | Outpatient (BNVA) | payer MEDICARE, SELFPAY | PROVIDERS: PCP Family Medicine; Referring Provider Family Medicine; Visit Provider Psychiatry & Neurology Neurology | DX: I69.351 Hemiplegia and hemiparesis following cerebral infarction affecting right dominant side (principal); Z79.02 Long term (current) use of antithrombotics/antiplatelets; R29.2 Abnormal reflex; N40.1 Benign prostatic hyperplasia with lower urinary tract symptoms; N13.8 Other obstructive and reflux uropathy; F39 Unspecified mood [affective] disorder; G30.9 Alzheimer's disease, unspecified; F02.80 Dementia in other diseases classified elsewhere, unspecified severity, without behavioral disturbance, psychotic disturbance, mood disturbance, and anxiety; G56.21 Lesion of ulnar nerve, right upper limb; G56.03 Carpal tunnel syndrome, bilateral upper limbs; R42 Dizziness and giddiness | CPT/HCPCS: 99214 ==

== ENCOUNTER → 2022-04-10 10:05 | Outpatient (BNVA) | payer MEDICARE, SELFPAY | PROVIDERS: PCP Family Medicine; Referring Provider Family Medicine; Visit Provider Nurse Practitioner Gerontology | DX: N40.1 Benign prostatic hyperplasia with lower urinary tract symptoms (principal); N13.8 Other obstructive and reflux uropathy | CPT/HCPCS: 99214 ==

== ENCOUNTER 2022-05-06 09:21 | Emergency (ER) | payer MEDICARE, SELFPAY ==
--- NOTE | 2022-05-06 09:15 | RT.EKG_ITS ---
APPROVED REPORT Exam: Resting ECG Reason for Exam: dizzy, SOB Patient Location: E HR:73 bpm ECG Measurements Heart Rate 73 AXIS TX 202 P 83 QRSd 101 QRS -61 QT 414 T 81 QTc 456 Conclusion Unknown rhythm, irregular rate...V-rate 60-140, variation>10% Left anterior fascicular block...axis(240,-40), init forces inf Probable left ventricular hypertrophy...(RaVL+SV3)xQRSd >280 Sinus with rate variation. Artifact. No STEMI. I have reviewed and interpreted ECG and agree with software generated interpretation.
[2022-05-06 09:27] VITALS: BP 135/60; PULSE 78; RESP 16; TEMP 36.7; O2SAT 96
--- NOTE | 2022-05-06 10:15 | DI.CT_ITS ---
Exam(s) CT HEAD WO EXAM: CT HEAD WO CLINICAL HISTORY: dizziness, r/o acute intracranial abnormality. TECHNIQUE: Imaging Protocol: Axial computed tomography images with coronal and sagittal reformatted images were created and reviewed COMPARISON: CT CT BRAIN NECK CTA from 03/17/2021 FINDINGS: There are no skull fractures nor fluid in the visualized paranasal sinuses. There is no evidence of intracranial hemorrhage, mass effect, or shift of midline structures. There are no extra-axial fluid collections. The ventricles are not enlarged or shifted and there is no blo od within the ventricular system nor within the basal cisterns. IMPRESSION: No acute intracranial findings on this noninfused CT scan of the brain. RADIATION DOSE DELIVERED: 748.02mGy.cm Total DLP DATA REPOSITORY: All CT scans at this facility are submitted to the National Radiology Data Registry (NRDR) Dose Index Registry (DIR) with the [employer] (ACR). RADIATION OPTIMIZATION: All CT scans at this facility use at least one of these dose optimization te chniques: automated exposure control; mA and/or kV adjustment per patient size (includes targeted exa ms where dose is matched to clinical indication); or iterative reconstruction.
--- NOTE | 2022-05-06 10:21 | ED.GENADUL_ITS ---
Discharge Plan Disposition Patient Disposition: HOME Condition: Good Discharge Details Clinical Impression: Dizziness, Shortness of breath Primary Care Provider: Aj Pendleton ED Provider: Trupti Ruby Home Meds and New Rx's Prescriptions: Continued acetaminophen 500 mg tablet 500 mg PO Q6H PRN (Reason: pain) Qty: 30 3RF finasteride 5 mg tablet 5 mg PO DAILY Qty: 90 3RF tadalafil [Cialis] 5 mg tablet 5 mg PO DAILY Qty: 90 2RF Rx Instructions: trial for bph 04/19/22 vitamin B complex Capsule 2 cap PO DAILY magnesium oxide 500 mg capsule 500 mg PO DAILY caffeine 200 mg tablet 200 mg PO BID PRN (Reason: fatigue) Qty: 60 0RF Rx Instructions: takes to help him concentrate cholecalciferol (vitamin D3) 50 mcg (2,000 unit) capsule 50 mcg PO DAILY Fish Oil 340-1,000 mg capsule 2 cap PO DAILY atorvastatin 80 mg tablet 80 mg PO QHS Qty: 90 3RF lorazepam 1 mg tablet 0.5 mg PO HS PRN (Reason: sleep) Qty: 30 0RF Linzess 145 mcg capsule 145 mcg PO QAM Qty: 30 2RF Rx Instructions: multiple bowel meds don't work Centrum Silver 1 EACH tablet 1 cap PO DAILY aspirin 81 mg Tablet,Chewable 81 mg PO DAILY Qty: 30 0RF No Action fluoxetine [Prozac] 40 mg capsule 40 mg PO DAILY tamsulosin 0.4 mg capsule 0.2 mg PO .qod Rx Instructions: slowly coming off while starting Proscar verapamil 40 mg tablet 40 mg PO QHS Qty: 90 3RF midodrine 2.5 mg tablet 2.5 mg PO BID Qty: 180 3RF lisinopril 5 mg tablet 5 mg PO HS Qty: 90 3RF Discharge Instructions Instructions: Dyspnea (ED), Dizziness (ED) Additional Instructions: Your labs, EKG and imaging today is reassuring and shows no evidence of acute concerning or significant findings. Drink plenty of fluids and get plenty of rest. Call your primary care doctor tomorrow to schedule a follow-up appointment for reevaluation and for referral for outpatient stress test if your shortness of breath returns or worsens. You can also follow-up with your neurologist Dr. Barriga for further evaluation of your chronic dizziness. Return immediately to the emergency department if you develop any worsening or new concerning symptoms. Referrals: Jocelyne Barriga MD [ [facility] STAFF PHYSICIAN] - Discharge Data Discharge Date/Time-TO BE ENTERED AT DEPARTURE: 05/06/22 13:15 Discharge Physician: Trupti Ruby Medical Decision Making 82-year-old male who is DNR/DNI with a history of CVA, hypertension, migraines, anxiety, depression with a history of chronic dizziness for the past year, worse over the last week and associated with fatigue with intermittent shortness of breath since last night. EKG notes a rate of 73, sinus, no STEMI and nondiagnostic. His vitals are within normal limits. He has no focal deficits on exam. Differential diagnosis includes dehydration, electrolyte abnormality, UTI, CVA, pneumonia, covid, PE. History and presentation does not appear consistent with ACS, dissection, meningitis. Discussed that he may have chronic dizziness status post his stroke last year. Discussed that he is also on several medications that may be contributing. Discussed with that the potential causes of chronic dizziness are numerous and we may not find a diagnosis for this today but will evaluate for his shortness of breath and worsening dizziness and fatigue for the past week. We will place an IV, bolus IV fluids, screening labs, urinalysis, Fluvid, CT head, cxr. Labs and imaging reviewed. Normal white blood cell count. Fluvid negative. UA negative. Chest x-ray and CT head negative for acute findings. D-dimer elevated above age-adjusted cutoff at 1803. He was referred for CT chest which is negative for PE. Patient reassessed and he has no acute complaints. His oxygen saturation is 99% on room air and he remains hemodynamically stable. He feels comfortable going home. Review of records note that patient had an MRI brain in July 11 which was unremarkable and an echocardiogram in February 2021 which noted an EF of 50 to 55% with normal left ventricular systolic function. Last stress test in 2018 no acute findings documented. Advised to follow-up with the primary care doctor for consideration for referral for stress test if symptoms do not improve. Usual and customary return precautions given prior to discharge. Medical Records Medical records reviewed: Yes I reviewed the patient's medical records. Imaging Data Radiologic Study: Radiologist's impression: CT Head Without Contrast Exam date and time: 05/06/2022 10:51 AM Age: 82 years old Clinical indication: Other: Dizziness, R/O acute intracranial abnormality TECHNIQUE: Imaging protocol: Computed tomography of the head without contrast. Radiation optimization: All CT scans at this facility use at least one of these dose optimization techniques: automated exposure control; mA and/or kV adjustment per patient size (includes targeted exams where dose is matched to clinical indication); or iterative reconstruction. COMPARISON: MR BRAIN WO 06/23/2021 12:33 PM FINDINGS: Brain: Central and cortical brain atrophy evident, appropriate for patient age. There is nonspecific periventricular low attenuation, likely microangiopathic disease. No acute intracranial hemorrhage. Cerebral ventricles: No ventriculomegaly. Paranasal sinuses: Visualized sinuses are unremarkable. No fluid levels. Mastoid air cells: Visualized mastoid air cells are well aerated. Bones/joints: Unremarkable. No acute fracture. Soft tissues: Unremarkable. IMPRESSION: No acute intracranial abnormality. XR Chest Exam date and time: 05/06/2022 10:57 AM Age: 82 years old Clinical indication: Other: Dizziness, R/O acute disease TECHNIQUE: Imaging protocol: Radiologic exam of the chest. Views: 2 views. COMPARISON: CR XR CHEST 2V PA LATERAL 03/17/2021 10:22 AM FINDINGS: Lungs: Unremarkable. No consolidation. Pleural spaces: Unremarkable. No pleural effusion. No pneumothorax. Heart/Mediastinum: Unremarkable. No cardiomegaly. Bones/joints: Unremarkable. IMPRESSION: No acute findings. CTA Chest With Contrast Exam date and time: 05/06/2022 11:55 AM Age: 82 years old Clinical indication: Other: Elevated d dimer, SOB, dizzy, R/O pe TECHNIQUE: Imaging protocol: Computed tomographic angiography of the chest with contrast. 3D rendering (Not supervised by radiologist): MIP and/or 3D reconstructed images were created by the technologist. Radiation optimization: All CT scans at this facility use at least one of these dose optimization techniques: automated exposure control; mA and/or kV adjustment per patient size (includes targeted exams where dose is matched to clinical indication); or iterative reconstruction. Contrast material: OMNIPAQUE 350; Contrast volume: 100 ml; Contrast route: INTRAVENOUS (IV);? COMPARISON: CR XR CHEST 2V PA LATERAL 05/06/2022 10:57 AM FINDINGS: Pulmonary arteries: Negative for acute pulmonary embolism. Aorta: Unremarkable. No aortic aneurysm. No aortic dissection. Lungs: No focal consolidation. Mild pleuroparenchymal scarring. Pleural spaces: Unremarkable. No pneumothorax. No pleural effusion. Heart: Unremarkable. No cardiomegaly. No pericardial effusion. Lymph nodes: Unremarkable. No enlarged lymph nodes. Bones/joints: Unremarkable. No acute fracture. Soft tissues: Unremarkable. IMPRESSION: Negative for acute pulmonary embolism. Lab Data Lab results reviewed: Yes I reviewed the patient's lab results. Labs: Laboratory Tests Range/Units 05/06/22 05/06/22 05/06/22 10:40 10:40 10:40 WBC (4.4-10.8) 10^3/uL 5.37 RBC (4.36-5.78) 10^6/uL 4.17 L Hgb (13.5-17.5) g/dL 12.8 L Hct (40.0-50.0) % 38.5 L MCV (80-95) fL 92 MCH (27.0-33.0) pg 30.7 MCHC (32.0-36.0) % 33.2 RDW (11.8-14.1) % 13.6 Plt Count (130-400) 10^3/uL 147 MPV (8.0-11.0) fL 9.1 Immature Gran % 0.6 Neutrophils % 78.9 Lymphocytes % 10.2 Monocytes % 9.5 Eosinophils % 0.6 Basophils % 0.2 Nucleated RBC % (0.0-0.3) % 0.0 Absolute Neutrophils (1.2-6.7) 10^3/uL 4.24 Absolute Lymphocytes (1.2-3.4) 10^3/uL 0.55 L Absolute Monocytes (0.1-0.8) 10^3/uL 0.51 Absolute Eosinophils (0.0-0.7) 10^3/uL 0.03 Absolute Basophils (0.0-0.2) 10^3/uL 0.01 D-Dimer (<500) ng/mlFEU Sodium (136-145) mmol/L 141 Potassium (3.5-5.1) mmol/L 4.0 Chloride (98-107) mmol/L 105 Carbon Dioxide (21.0-32.0) mmol/L 30.5 Anion Gap (3-11) mmol/L 5.5 BUN (7-18) mg/dL 16 Creatinine (0.70-1.30) mg/dL 1.2 Estimated GFR/1.73 m2 (mL/min/1.73m2) 57.96 Glucose (74-106) mg/dL 142 H Calcium (8.5-10.1) mg/dL 9.0 Magnesium (1.8-2.4) mg/dL 2.6 H Total Bilirubin (0.2-1.0) mg/dL 0.6 AST (15-37) U/L 41 H ALT (16-63) U/L 80 H Alkaline Phosphatase (46-116) U/L 97 Troponin I (<or=60) ng/L < 50 Total Protein (6.4-8.2) g/dL 6.5 Albumin (3.4-5.0) g/dL 3.5 Urine Color (Yellow) Urine Clarity (Clear) Urine pH (5-8) Ur Specific [place] (1.005-1.025) Urine Protein (Negative) mg/dL Urine Ketones (Negative) mg/dL Urine Blood (Negative) Urine Nitrite (Negative) Urine Bilirubin (Negative) Urine Urobilinogen (Up TO 0.2) EU/dL Ur Leukocyte Esterase (Negative) Urine Glucose (Negative) mg/dL COVID-19 Source Nasopharynx SARS-CoV-2 (PCR) (Negative) Negative Influenza Type A (PCR) (Negative) Negative Influenza Type B (PCR) (Negative) Negative RSV (PCR) (Negative) Negative Range/Units 05/06/22 05/06/22 10:40 11:28 WBC (4.4-10.8) 10^3/uL RBC (4.36-5.78) 10^6/uL Hgb (13.5-17.5) g/dL Hct (40.0-50.0) % MCV (80-95) fL MCH (27.0-33.0) pg MCHC (32.0-36.0) % RDW (11.8-14.1) % Plt Count (130-400) 10^3/uL MPV (8.0-11.0) fL Immature Gran % Neutrophils % Lymphocytes % Monocytes % Eosinophils % Basophils % Nucleated RBC % (0.0-0.3) % Absolute Neutrophils (1.2-6.7) 10^3/uL Absolute Lymphocytes (1.2-3.4) 10^3/uL Absolute Monocytes (0.1-0.8) 10^3/uL Absolute Eosinophils (0.0-0.7) 10^3/uL Absolute Basophils (0.0-0.2) 10^3/uL D-Dimer (<500) ng/mlFEU 1803 H Sodium (136-145) mmol/L Potassium (3.5-5.1) mmol/L Chloride (98-107) mmol/L Carbon Dioxide (21.0-32.0) mmol/L Anion Gap (3-11) mmol/L BUN (7-18) mg/dL Creatinine (0.70-1.30) mg/dL Estimated GFR/1.73 m2 (mL/min/1.73m2) Glucose (74-106) mg/dL Calcium (8.5-10.1) mg/dL Magnesium (1.8-2.4) mg/dL Total Bilirubin (0.2-1.0) mg/dL AST (15-37) U/L ALT (16-63) U/L Alkaline Phosphatase (46-116) U/L Troponin I (<or=60) ng/L Total Protein (6.4-8.2) g/dL Albumin (3.4-5.0) g/dL Urine Color (Yellow) Yellow Urine Clarity (Clear) Cloudy Urine pH (5-8) 7.0 Ur Specific [place] (1.005-1.025) 1.020 Urine Protein (Negative) mg/dL Negative Urine Ketones (Negative) mg/dL Negative Urine Blood (Negative) Negative Urine Nitrite (Negative) Negative Urine Bilirubin (Negative) Negative Urine Urobilinogen (Up TO 0.2) EU/dL 0.2 Ur Leukocyte Esterase (Negative) Negative Urine Glucose (Negative) mg/dL Negative COVID-19 Source SARS-CoV-2 (PCR) (Negative) Influenza Type A (PCR) (Negative) Influenza Type B (PCR) (Negative) RSV (PCR) (Negative) ECG Data Attestation: I personally reviewed and interpreted this ECG (s) as follows: Interpretation: Rate of 73, sinus, no STEMI HPI General Mode of arrival: ambulatory . Date/Time Provider Initiated Documentation: 05/06/22 09:23 . Limitations to Documentation: no limitations . Information obtained by: patient . HPI Narrative: Patient is an 82-year-old male who is DNR/DNI with a history of CVA, hypertension, migraines, osteoarthritis, anxiety and depression with a history of chronic dizziness for the past year presents with worsening dizziness and fatigue over the past week with intermittent shortness of breath since last night. states that patient has not wanted to do much over the past week as he has no energy and is more dizzy. states that patient has been worked up for his chronic dizziness with his primary care doctor Dr. Pendleton and been referred to ENT. She states he was not given a formal diagnosis but was prescribed pyridostigmine which she took yesterday which caused diarrhea. Patient states he was sitting at home getting ready for bed last night when he felt short of breath. He states he lasted approximately 30 minutes and then resolved. Patient denies shortness of breath this morning but states patient has dementia and did complain to her that he felt short of breath. She states he appears more short of breath with exertion. He is fully vaccinated for COVID. He currently denies any dizziness or shortness of breath. He denies fever, headache, cough, chest pain, palpitations, abdominal pain, nausea, vomiting, diarrhea or urinary symptoms. Patient does also state that he has lost 30 pounds over the last year due to decreased appetite which is also been evaluated by his primary care doctor. Related Data Home Medications Medication Instructions Recorded Confirmed rdcrktge-vjr-szmju acid 0.4 1 cap PO DAILY 09/21/13 05/10/22 mg-lycopene 300 mcg-lutein 250 mcg tablet (Centrum Silver) omega-3 fatty acids-fish oil 340 2 cap PO DAILY 04/05/20 05/10/22 mg-1,000 mg capsule (Fish Oil) vitamin B complex 2 cap PO DAILY 04/05/20 05/10/22 acetaminophen 500 mg tablet 500 mg PO Q6H PRN pain #30 tabs 08/09/20 05/10/22 aspirin 81 mg chewable tablet 81 mg PO DAILY #30 tabs 03/22/21 05/10/22 caffeine 200 mg tablet 200 mg PO BID PRN fatigue #60 tabs 06/08/21 05/10/22 cholecalciferol (vitamin D3) 50 50 mcg PO DAILY 08/08/21 05/10/22 mcg (2,000 unit) capsule magnesium oxide 500 mg capsule 500 mg PO DAILY 09/21/21 05/10/22 atorvastatin 80 mg tablet 80 mg PO QHS #90 tabs 02/16/22 05/10/22 finasteride 5 mg tablet 5 mg PO DAILY #90 tabs 04/10/22 05/10/22 tadalafil 5 mg tablet (Cialis) 5 mg PO DAILY #90 tabs 04/20/22 05/10/22 lorazepam 1 mg tablet 0.5 mg PO HS PRN sleep #30 tabs 04/24/22 05/10/22 linaclotide 145 mcg capsule 145 mcg PO QAM #30 caps 05/01/22 05/10/22 (Linzess) fluoxetine 40 mg capsule (Prozac) 40 mg PO DAILY 05/10/22 05/10/22 lisinopril 5 mg tablet 5 mg PO HS #90 tabs 05/10/22 05/10/22 midodrine 2.5 mg tablet 2.5 mg PO BID #180 tabs 05/10/22 05/10/22 tamsulosin 0.4 mg capsule 0.2 mg PO .qod 05/10/22 05/10/22 verapamil 40 mg tablet 40 mg PO QHS #90 tabs 05/10/22 05/10/22 Previous Rx's Medication Instructions Recorded acetaminophen 500 mg tablet 500 mg PO Q6H PRN pain #30 tabs 08/09/20 aspirin 81 mg chewable tablet 81 mg PO DAILY #30 tabs 03/22/21 caffeine 200 mg tablet 200 mg PO BID PRN fatigue #60 tabs 06/08/21 atorvastatin 80 mg tablet 80 mg PO QHS #90 tabs 02/16/22 finasteride 5 mg tablet 5 mg PO DAILY #90 tabs 04/10/22 tadalafil 5 mg tablet (Cialis) 5 mg PO DAILY #90 tabs 04/20/22 lorazepam 1 mg tablet 0.5 mg PO HS PRN sleep #30 tabs 04/24/22 linaclotide 145 mcg capsule 145 mcg PO QAM #30 caps 05/01/22 (Linzess) lisinopril 5 mg tablet 5 mg PO HS #90 tabs 05/10/22 midodrine 2.5 mg tablet 2.5 mg PO BID #180 tabs 05/10/22 verapamil 40 mg tablet 40 mg PO QHS #90 tabs 05/10/22 Allergies Allergy/AdvReac Type Severity Reaction Status Date / Time No Known Allergies Allergy Verified 05/10/22 10:23 General Stated Complaint: Dizzy/Sync JERARDO: 2 Review of Systems All systems reviewed & are unremarkable except as noted in HPI and below Constitutional Constitutional: Denies chills, Denies excessive sweating, Denies fatigue, Denies fever(s), Denies weakness and Denies weight loss Eyes Eyes: Reports system reviewed and no additional complaints, except as documented and Denies blurry vision ENT Ears, Nose, Mouth, and Throat: Denies vertigo, Denies dizziness, Denies otalgia, Denies nasal congestion, Denies sore throat and Denies throat swelling Cardiovascular Cardiovascular: Denies chest pain, Denies syncope, Denies rapid heart rate and Denies dyspnea Respiratory Respiratory: Denies chest congestion, Denies cough, Denies pain on inspiration and Denies dyspnea Gastrointestinal Gastrointestinal: Denies abdominal pain, Denies diarrhea and Denies vomiting Genitourinary Genitourinary: Denies hematuria, Denies dysuria and Denies flank pain Musculoskeletal Musculoskeletal: Denies back pain and Denies joint swelling Integumentary/Breasts Skin/Breast: Denies lesions and Denies rash Neurologic Neurologic: Denies behavioral changes, Denies confusion, Denies vertigo, Denies dizziness, Denies syncope, Denies localized weakness and Denies weakness Psychiatric Psychiatric: Denies behavioral changes, Denies confusion and Denies depression Endocrine Endocrine: Denies excessive sweating and Denies fatigue Hematologic/Lymphatic Hematologic/Lymphatic: Denies easy bruising and Denies lymphadenopathy Allergic/Immunologic Allergic/Immunologic: Denies throat swelling [facility] All Active Problems Dizziness (Acute) Shortness of breath (Acute) Essential hypertension (Acute) Imbalance (Acute) Dizziness (Acute) Driving safety issue (Acute) passed computer segment road test pending CVD (cerebrovascular disease) (Chronic) followed by [facility] Dr Mejia stable disease following CEA Carpal tunnel syndrome of left wrist (Acute) 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 Dizziness (Acute) Dysphagia as late effect of stroke (Acute) improved History of carpal tunnel surgery (Chronic) right hand, twice Right hand weakness (Acute) Hypophonia (Acute) Health care proxy on file (Chronic) daughter Monae STARKEY (Physician Orders for Life-Sustaining Treatment) (Chronic) DNR/DNI; 05/02/21 Executive function deficit (Acute) Goals of care, counseling/discussion (Acute) Memory change (Acute) Babinski reflex (Acute) Palliative care patient (Acute) Dysarthria (Acute) Discharge planning issues (Acute) DVT prophylaxis (Acute) Dysphasia (Acute) receiving speech therapy Dysphagia (Acute) Knee pain (Acute) Cartilage Polyp of colon (Acute) Degenerative arthritis of knee, bilateral (Chronic) Status post knee surgery (Acute) Mood disorder (Chronic) stable Blood Pressure Check (Chronic) BPH w urinary obs/LUTS (Acute) see urology as arranged for consideration of TURP Gastrointestinal problem (Chronic) wishes a 2nd opinion--she did not find Dr. Mcgregor, GI , helpful continue gaviscon as needed Primary osteoarthritis of right knee (Acute) Primary osteoarthritis of left knee (Acute) Anemia (Chronic) Weight loss (Acute) Malaise (Acute) Ventricular tachycardia (Acute 03/07/15) by event monitor 03/03/15 10 beat run - pt asymptomatic F/U with PCP Dr. Pendleton Mitral valve regurgitation (Acute 09/19/92) F/U with PCP Dr. Pendleton Diverticulosis of colon without diverticulitis (Acute) Hypertension (Chronic) Cubital tunnel syndrome on right (Chronic) s/p ulnar nerve decompression DOS: 08/09/2020 Right carpal tunnel syndrome (Chronic) S/p ECTR DOS: 08/09/2020 Erectile dysfunction (Acute) Fatigue (Acute) Numbness of right hand (Acute) Medical History Alzheimer disease early Benign prostatic hyperplasia CVA (cerebral vascular accident) Depressive disorder DNI (do not intubate) DNR (do not resuscitate) Expressive aphasia Hypertension Migraine Orthostatic hypotension (05/20/15) rx florinef Vertigo Surgical History Colonoscopy - MAC (11/25/17) 2002, 2006 History of carotid endarterectomy February 2021, following stroke History of carpal tunnel surgery of right wrist (~1981) Open knee repair (~2003) 2003;RIGHT KNEE; cartilage removed. 10/02; UNSURE OF PROCEDURE Family History Mother Neoplasm BREAST Stroke Daughter Mild cognitive impairment Depression Son No problems noted. Daughter No problems noted. 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 Do you think of yourself as: straight/heterosexual Current gender identity: male What is your relationship status?: How often do you talk on the phone with friends or family?: once per week How often do you get together with friends or relatives?: three or more times per week How often do you attend roman catholic or yarsani services?: 4 or more times per year Do you belong to any clubs or organized social groups?: yes Panel score (0-1 are the most socially isolated patients): 4 What type of physical activity do you participate in: walking and additional Details: likes to garden when weather permits Duration: other Details: much less physically active in winter due to fear of falling Frequency: daily Nereida/Muslim: Shinto Special nereida needs: No Seatbelt use: always Working smoke detector in home: Yes Fire extinguisher in home: Yes Do you feel safe at home: Yes Do you feel safe in your relationship?: Yes Additional Social history: Mr Norton lives with his , Hayde. He has three children; DPOA daughter Monae lives nearby. His son lives in [facility] and his other daughter lives in [place]. Monae is their main support person. His has been struggling with her memory. Jared is very yarsani. Rico is my best friend. Usually attends a Shinto men's group, but hasn't been meeting due to COVID. He doesn't mind being alone. Loves to sit on his back porch and watch wildlife. Never very outgoing or social. Exam Const General: cooperative and no acute distress Orientation: alert, awake and oriented x3 [facility] Head: normal to inspection Ears: hearing grossly normal bilaterally, external ears normal and TM's normal bilaterally General nose exam: external nose normal Face and sinus: normal facial exam Mouth: oral mucosae normal Teeth and gingiva: dentition normal Throat: posterior oropharynx normal Eyes General: appearance normal, both eyes and all related structures Eyelids: eyelids normal Pupils: PERRL EOM: EOM intact bilaterally Neck Neck: normal visual inspection Lymphatic: no lymphadenopathy noted Chest Chest: normal inspection of the chest Resp Effort & Inspection: normal respiratory effort and able to speak in complete sentences Auscultation: clear to auscultation bilaterally, no rales, no rhonchi and no wheezes Cardio Rate: regular rate Rhythm: regular rhythm GI Inspection: normal to inspection Palpation: soft, not firm, no guarding, no hepatosplenomegaly, no masses and nontender Auscultation: normal bowel sounds Back/Spine/Pelvis Back: no CVA tenderness Skin General skin exam: no rashes or lesions noted Neuro General: patient alert, patient awake, patient oriented x3, moves all extremities, no meningeal signs and no focal motor deficits Cranial Nerves: CN's II-XI intact bilaterally Cognition: normal cognition Speech: speech normal Gait: normal gait Motor: muscle tone normal throughout and strength 5/5 throughout Sensory Exam: no sensory deficits noted Extrem General: normal to inspection, full ROM and capillary refill normal Psych Appearance: grossly normal Mental Status: mental status grossly normal Speech and Movement: speech and movement normal Affect: normal affect Thought Process: normal Course Vital Signs Vital signs: Vital Signs Temperature 98.1 F 05/06/22 09:27 Pulse 78 05/06/22 09:27 Respiratory Rate 16 05/06/22 09:27 Blood Pressure 135/60 05/06/22 09:27 Pulse Oximetry 96 05/06/22 09:27 Temperature 98.1 F 05/06/22 09:27 Temperature Source Temporal Artery Scan 05/06/22 09:27 Pulse 78 05/06/22 09:27 Respiratory Rate 16 05/06/22 09:27 Blood Pressure 135/60 05/06/22 09:27 Blood Pressure Position Sitting 05/06/22 09:27 Pulse Oximetry 96 05/06/22 09:27 Oxygen Delivery Method Room Air 05/06/22 09:27 Oxygen Flow Rate 0 05/06/22 09:27 Pain Level 0 05/06/22 09:27
--- NOTE | 2022-05-06 10:23 | DI.RAD_ITS ---
Exam(s) XR CHEST 2V PA LATERAL EXAM: XR CHEST 2V PA LATERAL CLINICAL HISTORY: dizziness, r/o acute disease. TECHNIQUE: 2D digital imaging was performed. COMPARISON: CR XR CHEST 2V PA LATERAL from 03/17/2021 FINDINGS: 2 views: Heart size is normal. The mediastinum is not widened. Lungs are clear. No infiltrates nor pleural effusions. IMPRESSION: No acute pulmonary findings.No significant change compared to 03/17/2021. DATA REPOSITORY: RADIATION DOSE DELIVERED:
[2022-05-06] MEDS: Normal Saline 250 ML IV (10:42)
[2022-05-06 10:49] LABS: Abs Immature Grans 0.03 10^3/uL (0.0-0.06); Absolute Basophil Count 0.01 10^3/uL (0.0-0.2); Absolute Eosinophil Count 0.03 10^3/uL (0.0-0.7); Absolute Lymphocyte Count 0.55 10^3/uL (1.2-3.4); Absolute Monocyte Count 0.51 10^3/uL (0.1-0.8); Absolute Neutrophil Count 4.24 10^3/uL (1.2-6.7); Basophils % 0.2; Eosinophils % 0.6; HCT 38.5 % (40.0-50.0); HGB 12.8 g/dL (13.5-17.5); Immature Grans % 0.6; Lymphocytes % 10.2; MCH 30.7 pg (27.0-33.0); MCHC 33.2 % (32.0-36.0); MCV 92 fL (80-95); MPV 9.1 fL (8.0-11.0); Monocytes % 9.5; Neutrophils % 78.9; Platelet Count 147 10^3/uL (130-400); RBC 4.17 10^6/uL (4.36-5.78); RDW 13.6 % (11.8-14.1); RDW-SD 46.5 fL; WBC 5.37 10^3/uL (4.4-10.8)
[2022-05-06 11:05] LABS: ALT 80 U/L (16-63); AST 41 U/L (15-37); Albumin 3.5 g/dL (3.4-5.0); Alkaline Phosphatase 97 U/L (46-116); Anion Gap 5.5 mmol/L (3-11); BUN 16 mg/dL (7-18); Bilirubin, Total 0.6 mg/dL (0.2-1.0); CO2 30.5 mmol/L (21.0-32.0); CREATININE 1.2 mg/dL (0.70-1.30); Chloride 105 mmol/L (98-107); Estimated GFR 57.96 (mL/min/1.73m2); Glucose 142 mg/dL (74-106); Magnesium 2.6 mg/dL (1.8-2.4); Sodium 141 mmol/L (136-145); Total Protein 6.5 g/dL (6.4-8.2); Troponin I < 50 ng/L (<or=60)
--- NOTE | 2022-05-06 11:15 | DI.CT_ITS ---
Exam(s) CT CHEST PE CTA EXAM: CT CHEST PE CTA CLINICAL HISTORY: elevated d dimer, sob, dizzy, r/o PE. TECHNIQUE: Imaging Protocol: CT angiography of the chest was performed using pulmonary embolus aleyda col. Multi planar reconstructions were performed. CONTRAST MATERIAL: Intravenous: Omnipaque 350 Contrast volume: 100 cc COMPARISON: CT CT BRAIN NECK CTA from 03/17/2021 FINDINGS: CHEST: PULMONARY ARTERIES: There are no intraluminal filling defects to suggest acute pulmonary emboli. LUNGS: There are no infiltrates nor evidence of pulmonary infarction.. Mild atelectasis in the lung b ases. No pleural effusions. MEDIASTINUM: There is no hilar nor mediastinal adenopathy. Visualized thyroid unremarkable. CARDIAC: Cardiomegaly. No pericardial effusion.Caliber of the thoracic aorta is within normal limits . No dissection. There is no significant shift of the interventricular septum. PARTIALLY VISUALIZED UPPERMOST ABDOMEN: No obvious findings OSSEOUS: No significant osseous lesions.. IMPRESSION: 1. No evidence of acute pulmonary emboli. No evidence of pulmonary infarction.No pleural effusions. RADIATION DOSE DELIVERED: 331.96mGy.cm Total DLP DATA REPOSITORY: All CT scans at this facility are submitted to the National Radiology Data Registry (NRDR) Dose Index Registry (DIR) with the [employer] (A[employer]). RADIATION OPTIMIZATION: All CT scans at this facility use at least one of these dose optimization te chniques: automated exposure control; mA and/or kV adjustment per patient size (includes targeted exa ms where dose is matched to clinical indication); or iterative reconstruction.
[2022-05-06 11:18] LABS: D-Dimer 1803 ng/mlFEU (<500)
[2022-05-06 11:23] LABS: COVID-19 PCR Negative (Negative); Influenza A PCR Negative (Negative); Influenza B PCR Negative (Negative); RSV PCR Negative (Negative)
--- NOTE | 2022-05-06 11:26 | DI.VRAD_ITS ---
PROCEDURE INFORMATION: Exam: XR Chest Exam date and time: 05/06/2022 10:57 AM Age: 82 years old Clinical indication: Other: Dizziness, R/O acute disease TECHNIQUE: Imaging protocol: Radiologic exam of the chest. Views: 2 views. COMPARISON: CR XR CHEST 2V PA LATERAL 03/17/2021 10:22 AM FINDINGS: Lungs: Unremarkable. No consolidation. Pleural spaces: Unremarkable. No pleural effusion. No pneumothorax. Heart/Mediastinum: Unremarkable. No cardiomegaly. Bones/joints: Unremarkable. IMPRESSION: No acute findings. Dictated and Authenticated by: Laurel Qureshi MD. Ordering:JERMAINE Lyles MD
--- NOTE | 2022-05-06 11:32 | DI.VRAD_ITS ---
PROCEDURE INFORMATION: Exam: CT Head Without Contrast Exam date and time: 05/06/2022 10:51 AM Age: 82 years old Clinical indication: Other: Dizziness, R/O acute intracranial abnormality TECHNIQUE: Imaging protocol: Computed tomography of the head without contrast. Radiation optimization: All CT scans at this facility use at least one of these dose optimization techniques: automated exposure control; mA and/or kV adjustment per patient size (includes targeted exams where dose is matched to clinical indication); or iterative reconstruction. COMPARISON: MR BRAIN WO 06/23/2021 12:33 PM FINDINGS: Brain: Central and cortical brain atrophy evident, appropriate for patient age. There is nonspecific periventricular low attenuation, likely microangiopathic disease. No acute intracranial hemorrhage. Cerebral ventricles: No ventriculomegaly. Paranasal sinuses: Visualized sinuses are unremarkable. No fluid levels. Mastoid air cells: Visualized mastoid air cells are well aerated. Bones/joints: Unremarkable. No acute fracture. Soft tissues: Unremarkable. IMPRESSION: No acute intracranial abnormality. Dictated and Authenticated by: Laurel Qureshi MD. Ordering:JERMAINE Lyles MD
[2022-05-06 11:35] LABS: Source Nasopharynx
[2022-05-06 11:43] LABS: Bilirubin Negative (Negative); Blood Negative (Negative); Clarity Cloudy (Clear); Glucose Negative (Negative); Ketones Negative (Negative); Leukocyte Esterase Negative (Negative); Nitrite Negative (Negative); Urobilinogen 0.2 EU/dL (Up TO 0.2)
[2022-05-06] MEDS: Omnipaque 350 MG/ML 100 ML BTL IJ (11:57)
--- NOTE | 2022-05-06 12:36 | DI.VRAD_ITS ---
PROCEDURE INFORMATION: Exam: CTA Chest With Contrast Exam date and time: 05/06/2022 11:55 AM Age: 82 years old Clinical indication: Other: Elevated d dimer, SOB, dizzy, R/O pe TECHNIQUE: Imaging protocol: Computed tomographic angiography of the chest with contrast. 3D rendering (Not supervised by radiologist): MIP and/or 3D reconstructed images were created by the technologist. Radiation optimization: All CT scans at this facility use at least one of these dose optimization techniques: automated exposure control; mA and/or kV adjustment per patient size (includes targeted exams where dose is matched to clinical indication); or iterative reconstruction. Contrast material: OMNIPAQUE 350; Contrast volume: 100 ml; Contrast route: INTRAVENOUS (IV); COMPARISON: CR XR CHEST 2V PA LATERAL 05/06/2022 10:57 AM FINDINGS: Pulmonary arteries: Negative for acute pulmonary embolism. Aorta: Unremarkable. No aortic aneurysm. No aortic dissection. Lungs: No focal consolidation. Mild pleuroparenchymal scarring. Pleural spaces: Unremarkable. No pneumothorax. No pleural effusion. Heart: Unremarkable. No cardiomegaly. No pericardial effusion. Lymph nodes: Unremarkable. No enlarged lymph nodes. Bones/joints: Unremarkable. No acute fracture. Soft tissues: Unremarkable. IMPRESSION: Negative for acute pulmonary embolism. Dictated and Authenticated by: Laurel Qureshi MD. Ordering:JERMAINE Lyles MD
[2022-05-06 12:44] VITALS: BP 162/67; PULSE 53; PULSE 59; RESP 14; O2SAT 99
[2022-05-06 12:45] VITALS: BP 179/75; PULSE 58; PULSE 60; RESP 15; O2SAT 99
[2022-05-06 12:46] VITALS: PULSE 62; RESP 14; O2SAT 98
[2022-05-06 12:50] VITALS: PULSE 57; RESP 17; O2SAT 98
[2022-05-06 13:01] VITALS: BP 185/86; PULSE 60; TEMP 36.5; O2SAT 98
== END 2022-05-06 13:15 | disposition home or self-care (01) ==
PROVIDERS: Emergency Provider Physician Assistant; PCP Family Medicine
DX: R42 Dizziness and giddiness (principal); R06.02 Shortness of breath
CPT/HCPCS: 36415; 71275; 80053; 87637; 93005; 96360; 99284; 99285; 70450; 71046; 81003; 83735; 84484; 85025; 85379; 93010; J3490

== ENCOUNTER → 2022-05-10 10:18 | Outpatient (BNVA) | payer MEDICARE, SELFPAY | PROVIDERS: PCP Family Medicine; Referring Provider Family Medicine; Visit Provider Psychiatry & Neurology Neurology | DX: I69.351 Hemiplegia and hemiparesis following cerebral infarction affecting right dominant side (principal); I69.322 Dysarthria following cerebral infarction; R29.2 Abnormal reflex; R41.3 Other amnesia; F41.9 Anxiety disorder, unspecified; F32.A Depression, unspecified; R42 Dizziness and giddiness; G56.21 Lesion of ulnar nerve, right upper limb; G56.01 Carpal tunnel syndrome, right upper limb; G56.02 Carpal tunnel syndrome, left upper limb | CPT/HCPCS: 99215 ==

== ENCOUNTER 2022-06-16 19:37 | Emergency (ER) | payer MEDICARE, SELFPAY ==
[2022-06-16] VITALS (18 sets, daily range): BP systolic 104–140; BP diastolic 59–67; PULSE 53–86; RESP 16–23; TEMP 36; O2SAT 96–98
--- NOTE | 2022-06-16 19:30 | RT.EKG_ITS ---
APPROVED REPORT Exam: Resting ECG Reason for Exam: dizzy Patient Location: E HR:62 bpm ECG Measurements Heart Rate 62 AXIS [place] 166 P 33 QRSd 104 QRS -59 QT 432 T 17 QTc 438 Conclusion Sinus rhythm...normal P axis, V-rate 60- 99 Incomplete RBBB and LAFB...axis(240,-40), S>R II III aVF Left ventricular hypertrophy...multiple voltage criteria
--- NOTE | 2022-06-16 20:01 | ED.GENADUL_ITS ---
Discharge Plan Disposition Patient Disposition: HOME Condition: Stable Discharge Details Clinical Impression: Dizziness, Orthostasis Primary Care Provider: Aj Pendleton ED Provider: Driss Ridley Home Meds and New Rx's Prescriptions: Continued acetaminophen 500 mg tablet 500 mg PO Q6H PRN (Reason: pain) Qty: 30 3RF caffeine 100 mg tablet 100 mg PO DAILY PRN fluoxetine [Prozac] 40 mg capsule 40 mg PO DAILY tamsulosin 0.4 mg capsule 0.2 mg PO .qod Rx Instructions: slowly coming off while starting Proscar finasteride 5 mg tablet 5 mg PO DAILY Qty: 90 3RF vitamin B complex Capsule 2 cap PO DAILY magnesium oxide 500 mg capsule 500 mg PO DAILY cholecalciferol (vitamin D3) 50 mcg (2,000 unit) capsule 50 mcg PO DAILY Fish Oil 340-1,000 mg capsule 2 cap PO DAILY lorazepam 1 mg tablet 0.5 mg PO HS PRN (Reason: sleep) Qty: 30 0RF Linzess 145 mcg capsule 145 mcg PO QAM Qty: 30 2RF Rx Instructions: multiple bowel meds don't work midodrine 5 mg tablet 5 mg PO TID Qty: 270 5RF Rx Instructions: do not give last dose of day after 6PM or within 4 hrs of bedtime Centrum Silver 1 EACH tablet 1 cap PO DAILY Discharge Instructions Instructions: Dizziness (ED) Additional Instructions: your blood pressure was normal here and your labs were reassuring follow up with your primary care provider within 1-2 weeks if you feel more ill, have severe pain or difficulty breathing return to the emergency department Medical Decision Making 82 yo male with hx of prior cva, htn, bph, orthostasis comes in with feeling dizzy when he stands and daughter reports his bp was 70 systolic at home. He has had issues with orthostasis and feeling dizzy for years now and states tonight was similar to prior episodes. He denies any weakness, chest pain, abdomen pain, headache, fevers, chills, dyspnea, cough. He is in no distress sitting in bed speaking clearly. He has no focal motor or sensation deficits, clear speech, perrl, eomi, no significant facil assymetry. Given his history suspect this was again his orthostasis but will evaluate for etiologies such as anemia and electrolyte disorder. No chest pain or dyspnea so doubt acs and he had a negative cta for pe in April of this year and has no evidence of dvt on exam and no tachycardia or hypoxia. No tearing back pain so doubt dissection and given lack of headache and reassuring neuro exam doubt cva and do not feel ct head indicated. labs including troponin unremarkable, has had symptoms for greater then 3 hours so do not feel delta troponin indicated. He states he no longer feels dizzy. Will have nursing check orthostatic vitals and if tolerates this and vitals reassuring will d/c and have him f/u with pcp Differential Diagnosis Differential Diagnosis: orthostasis, anemia, electrolyte abnormality Medical Records Medical records reviewed: Yes I reviewed the patient's medical records. Lab Data Lab results reviewed: Yes I reviewed the patient's lab results. ECG Data Attestation: I personally reviewed and interpreted this ECG (s) as follows: Prior ECG tracings: available for review Interpretation: sinus rhythm, rate of [address] t wave ischemic findings HPI General Mode of arrival: wheelchair . Date/Time Provider Initiated Documentation: 06/16/22 19:48 . Limitations to Documentation: no limitations . Information obtained by: patient and family . History of Present Illness 82 year old M presents to the emergency department with the chief complaint of low blood pressure, described as moderate, Patient started experiencing this hour(s) (2) No relieving factors improve symptom(s), No exacerbating factors reported . Patient notes other (dizziness). Patient did receive the following treatments prior to arrival, none Related Data Home Medications Medication Instructions Recorded Confirmed [id number] acid 0.4 1 cap PO DAILY 09/21/13 06/16/22 mg-lycopene 300 mcg-lutein 250 mcg tablet (Centrum Silver) omega-3 fatty acids-fish oil 340 2 cap PO DAILY 04/05/20 06/16/22 mg-1,000 mg capsule (Fish Oil) vitamin B complex 2 cap PO DAILY 04/05/20 06/16/22 acetaminophen 500 mg tablet 500 mg PO Q6H PRN pain #30 tabs 08/09/20 06/16/22 cholecalciferol (vitamin D3) 50 50 mcg PO DAILY 08/08/21 06/16/22 mcg (2,000 unit) capsule magnesium oxide 500 mg capsule 500 mg PO DAILY 09/21/21 06/16/22 finasteride 5 mg tablet 5 mg PO DAILY #90 tabs 04/10/22 06/16/22 lorazepam 1 mg tablet 0.5 mg PO HS PRN sleep #30 tabs 04/24/22 06/16/22 linaclotide 145 mcg capsule 145 mcg PO QAM #30 caps 05/01/22 06/16/22 (Linzess) fluoxetine 40 mg capsule (Prozac) 40 mg PO DAILY 05/10/22 06/16/22 tamsulosin 0.4 mg capsule 0.2 mg PO .qod 05/10/22 06/16/22 midodrine 5 mg tablet 5 mg PO TID #270 tabs 05/29/22 06/16/22 caffeine 100 mg tablet 100 mg PO DAILY PRN 05/30/22 05/30/22 Previous Rx's Medication Instructions Recorded acetaminophen 500 mg tablet 500 mg PO Q6H PRN pain #30 tabs 08/09/20 finasteride 5 mg tablet 5 mg PO DAILY #90 tabs 04/10/22 lorazepam 1 mg tablet 0.5 mg PO HS PRN sleep #30 tabs 04/24/22 linaclotide 145 mcg capsule 145 mcg PO QAM #30 caps 05/01/22 (Linzess) midodrine 5 mg tablet 5 mg PO TID #270 tabs 05/29/22 Allergies Allergy/AdvReac Type Severity Reaction Status Date / Time No Known Allergies Allergy Verified 06/16/22 19:52 General Stated Complaint: Dizzy/Sync JREARDO: 3 Review of Systems All systems reviewed & are unremarkable except as noted in HPI and below Constitutional Constitutional: Denies chills, Denies fever(s) and Denies weakness Cardiovascular Cardiovascular: Denies chest pain and Denies dyspnea Respiratory Respiratory: Denies cough and Denies dyspnea Gastrointestinal Gastrointestinal: Denies abdominal pain, Denies nausea and Denies vomiting Integumentary/Breasts Skin/Breast: Denies rash Neurologic Neurologic: Denies weakness PFSH All Active Problems (Updated 06/16/22 @ 21:09 by Driss Ridley MD) Orthostasis (Acute) Essential hypertension (Acute) Imbalance (Acute) Dizziness (Acute) Driving safety issue (Acute) passed computer segment road test pending CVD (cerebrovascular disease) (Chronic) followed by [facility] Dr Mejia stable disease following CEA Carpal tunnel syndrome of left wrist (Acute) 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 Dizziness (Acute) Dysphagia as late effect of stroke (Acute) improved History of carpal tunnel surgery (Chronic) right hand, twice Right hand weakness (Acute) Hypophonia (Acute) Health care proxy on file (Chronic) daughter Monae STARKEY (Physician Orders for Life-Sustaining Treatment) (Chronic) DNR/DNI; 05/02/21 Executive function deficit (Acute) Goals of care, counseling/discussion (Acute) Memory change (Acute) Babinski reflex (Acute) Palliative care patient (Acute) Dysarthria (Acute) Discharge planning issues (Acute) DVT prophylaxis (Acute) Dysphasia (Acute) receiving speech therapy Dysphagia (Acute) Knee pain (Acute) Cartilage Polyp of colon (Acute) Degenerative arthritis of knee, bilateral (Chronic) Status post knee surgery (Acute) Mood disorder (Chronic) stable Blood Pressure Check (Chronic) BPH w urinary obs/LUTS (Acute) see urology as arranged for consideration of TURP Gastrointestinal problem (Chronic) wishes a 2nd opinion--she did not find Dr. Mcgregor, GI , helpful continue gaviscon as needed Primary osteoarthritis of right knee (Acute) Primary osteoarthritis of left knee (Acute) Anemia (Chronic) Weight loss (Acute) Malaise (Acute) Ventricular tachycardia (Acute 03/07/15) by event monitor 03/03/15 10 beat run - pt asymptomatic F/U with PCP Dr. Pendleton Mitral valve regurgitation (Acute 09/19/92) F/U with PCP Dr. Pendleton Diverticulosis of colon without diverticulitis (Acute) Hypertension (Chronic) Cubital tunnel syndrome on right (Chronic) s/p ulnar nerve decompression DOS: 08/09/2020 Right carpal tunnel syndrome (Chronic) S/p ECTR DOS: 08/09/2020 Erectile dysfunction (Acute) Fatigue (Acute) Numbness of right hand (Acute) Medical History Alzheimer disease early Benign prostatic hyperplasia CVA (cerebral vascular accident) Depressive disorder DNI (do not intubate) DNR (do not resuscitate) Expressive aphasia Hypertension Migraine Orthostatic hypotension (05/20/15) rx florinef Vertigo Surgical History Colonoscopy - MAC (11/25/17) 2002, 2006 History of carotid endarterectomy February 2021, following stroke History of carpal tunnel surgery of right wrist (~1981) Open knee repair (~2003) 2003;RIGHT KNEE; cartilage removed. 10/02; UNSURE OF PROCEDURE Family History Mother Neoplasm BREAST Stroke Daughter Mild cognitive impairment Depression Son No problems noted. Daughter No problems noted. 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 Do you think of yourself as: straight/heterosexual Current gender identity: male What is your relationship status?: How often do you talk on the phone with friends or family?: once per week How often do you get together with friends or relatives?: three or more times per week How often do you attend religion or confucianist services?: 4 or more times per year Do you belong to any clubs or organized social groups?: yes Panel score (0-1 are the most socially isolated patients): 4 What type of physical activity do you participate in: walking and additional Details: likes to garden when weather permits Duration: other Details: much less physically active in winter due to fear of falling Frequency: daily Nereida/Uatsdin: Restorationist Special nereida needs: No Seatbelt use: always Working smoke detector in home: Yes Fire extinguisher in home: Yes Do you feel safe at home: Yes Do you feel safe in your relationship?: Yes Additional Social history: Mr Norton lives with his , Hayde. He has three children; DPOA daughter Monae lives nearby. His son lives in [facility] and his other daughter lives in [place]. Monae is their main support person. His has been struggling with her memory. Jared is very confucianist. Rico is my best friend . Usually attends a Restorationist men's group, but hasn't been meeting due to COVID. He doesn't mind being alone. Loves to sit on his back porch and watch wildlife. Never very outgoing or social. Exam Const General: no acute distress Orientation: alert HENMD Head: normal to inspection Ears: external ears normal General nose exam: external nose normal Mouth: moist mucous membranes Eyes General: appearance normal, both eyes and all related structures Neck Neck: normal visual inspection Resp Effort & Inspection: normal respiratory effort and able to speak in complete sentences Cardio Rate: regular rate GI Palpation: soft and nontender Skin General skin exam: no rashes or lesions noted Neuro General: patient alert and patient oriented x3 Extrem General: normal to inspection Psych Mental Status: mental status grossly normal Course Vital Signs Vital signs: Vital Signs Temperature 36.0 C L 06/16/22 19:49 Pulse 66 06/16/22 19:49 Respiratory Rate 16 06/16/22 19:49 Blood Pressure 140/67 06/16/22 19:49 Pulse Oximetry 98 06/16/22 19:49 Temperature 36.0 C L 06/16/22 19:49 Pulse 66 06/16/22 19:49 Respiratory Rate 16 06/16/22 19:56 Respiratory Effort Non-Labored 06/16/22 19:56 Respiratory Depth Normal 06/16/22 19:56 Respiratory Pattern Normal 06/16/22 19:56 Blood Pressure 140/67 06/16/22 19:49 Pulse Oximetry 98 06/16/22 19:49 Pain Level 0 06/16/22 19:49
[2022-06-16 20:20] LABS: Abs Immature Grans 0.05 10^3/uL (0.0-0.06); Absolute Basophil Count 0.03 10^3/uL (0.0-0.2); Absolute Eosinophil Count 0.18 10^3/uL (0.0-0.7); Absolute Lymphocyte Count 0.68 10^3/uL (1.2-3.4); Absolute Monocyte Count 0.67 10^3/uL (0.1-0.8); Absolute Neutrophil Count 3.87 10^3/uL (1.2-6.7); Basophils % 0.5; Eosinophils % 3.3; HCT 38.2 % (40.0-50.0); HGB 12.6 g/dL (13.5-17.5); Immature Grans % 0.9; Lactate 1.6 mmol/L (0.6-1.4); Lymphocytes % 12.4; MCH 30.5 pg (27.0-33.0); MCV 93 fL (80-95); MPV 8.9 fL (8.0-11.0); Monocytes % 12.2; Neutrophils % 70.7; Platelet Count 156 10^3/uL (130-400); RBC 4.13 10^6/uL (4.36-5.78); RDW 13.7 % (11.8-14.1); RDW-SD 46.3 fL; WBC 5.48 10^3/uL (4.4-10.8)
[2022-06-16] MEDS: Normal Saline 1,000 ML 1000 ML IV (20:20)
[2022-06-16 20:37] LABS: ALT 50 U/L (16-63); AST 23 U/L (15-37); Albumin 3.4 g/dL (3.4-5.0); Alkaline Phosphatase 114 U/L (46-116); Anion Gap 7.5 mmol/L (3-11); BUN 20 mg/dL (7-18); Bilirubin, Total 0.4 mg/dL (0.2-1.0); CO2 28.5 mmol/L (21.0-32.0); CREATININE 1.3 mg/dL (0.70-1.30); Calcium 8.8 mg/dL (8.5-10.1); Chloride 103 mmol/L (98-107); Estimated GFR 52.85 (mL/min/1.73m2); Glucose 134 mg/dL (74-106); Magnesium 2.2 mg/dL (1.8-2.4); Potassium 3.9 mmol/L (3.5-5.1); Sodium 139 mmol/L (136-145); Total Protein 6.8 g/dL (6.4-8.2)
[2022-06-16 20:42] LABS: Troponin I < 50 ng/L (<or=60)
== END 2022-06-16 21:37 | disposition home or self-care (01) ==
PROVIDERS: Emergency Provider Emergency Medicine; PCP Family Medicine
DX: I95.1 Orthostatic hypotension (principal); I10 Essential (primary) hypertension; Z86.73 Personal history of transient ischemic attack (TIA), and cerebral infarction without residual deficits; Z79.899 Other long term (current) drug therapy
CPT/HCPCS: 80053; 93005; 96360; 99284; 83605; 83735; 84484; 85025; 93010

== ENCOUNTER → 2022-07-24 15:22 | Outpatient (BNVA) | payer MEDICARE, SELFPAY | PROVIDERS: PCP Family Medicine; Referring Provider Family Medicine; Visit Provider Nurse Practitioner Gerontology | DX: N40.1 Benign prostatic hyperplasia with lower urinary tract symptoms (principal); N13.8 Other obstructive and reflux uropathy | CPT/HCPCS: 51798; 99214 ==

== ENCOUNTER → 2022-08-13 14:39 | Outpatient (BNVA) | payer MEDICARE, SELFPAY | PROVIDERS: PCP Family Medicine; Referring Provider Family Medicine; Visit Provider Psychiatry & Neurology Neurology | DX: I69.351 Hemiplegia and hemiparesis following cerebral infarction affecting right dominant side (principal); Z79.02 Long term (current) use of antithrombotics/antiplatelets; R29.2 Abnormal reflex; R42 Dizziness and giddiness; F39 Unspecified mood [affective] disorder; G56.21 Lesion of ulnar nerve, right upper limb; G56.01 Carpal tunnel syndrome, right upper limb; G56.02 Carpal tunnel syndrome, left upper limb | CPT/HCPCS: 99215 ==

== ENCOUNTER → 2022-09-10 14:11 | Outpatient (BNVA) | payer MEDICARE, SELFPAY | PROVIDERS: PCP Family Medicine; Referring Provider Family Medicine; Visit Provider Psychiatry & Neurology Neurology | DX: I69.351 Hemiplegia and hemiparesis following cerebral infarction affecting right dominant side (principal); I69.322 Dysarthria following cerebral infarction; I69.321 Dysphasia following cerebral infarction; Z79.02 Long term (current) use of antithrombotics/antiplatelets; Z79.82 Long term (current) use of aspirin; R41.3 Other amnesia; I95.1 Orthostatic hypotension; R29.2 Abnormal reflex; F39 Unspecified mood [affective] disorder | CPT/HCPCS: 99215 ==

== ENCOUNTER → 2022-10-25 14:29 | Outpatient (BNVA) | payer MEDICARE, SELFPAY | PROVIDERS: PCP Family Medicine; Referring Provider Family Medicine; Visit Provider Nurse Practitioner Gerontology | DX: N40.1 Benign prostatic hyperplasia with lower urinary tract symptoms (principal); N13.8 Other obstructive and reflux uropathy; R42 Dizziness and giddiness | CPT/HCPCS: 51798; 99214 ==

== ENCOUNTER → 2022-11-01 15:00 | Outpatient (BNVA) | payer MEDICARE, SELFPAY | PROVIDERS: PCP Family Medicine; Referring Provider Family Medicine; Visit Provider Psychiatry & Neurology Neurology | DX: I69.351 Hemiplegia and hemiparesis following cerebral infarction affecting right dominant side (principal); I69.391 Dysphagia following cerebral infarction; I69.322 Dysarthria following cerebral infarction; Z79.82 Long term (current) use of aspirin; Z79.02 Long term (current) use of antithrombotics/antiplatelets; T44.6X Poisoning by, adverse effect of and underdosing of alpha-adrenoreceptor antagonists; R29.2 Abnormal reflex; R42 Dizziness and giddiness; N40.1 Benign prostatic hyperplasia with lower urinary tract symptoms; N13.8 Other obstructive and reflux uropathy; F39 Unspecified mood [affective] disorder; G56.21 Lesion of ulnar nerve, right upper limb; G56.01 Carpal tunnel syndrome, right upper limb; G56.02 Carpal tunnel syndrome, left upper limb | CPT/HCPCS: 99215 ==

== ENCOUNTER → 2023-01-15 14:12 | Outpatient (BNVA) | payer MEDICARE, SELFPAY | PROVIDERS: PCP Family Medicine; Referring Provider Family Medicine; Visit Provider Psychiatry & Neurology Neurology | DX: I69.351 Hemiplegia and hemiparesis following cerebral infarction affecting right dominant side (principal); I69.321 Dysphasia following cerebral infarction; I69.322 Dysarthria following cerebral infarction; Z79.02 Long term (current) use of antithrombotics/antiplatelets; Z79.82 Long term (current) use of aspirin; G20 Parkinson's disease; F03.90 Unspecified dementia, unspecified severity, without behavioral disturbance, psychotic disturbance, mood disturbance, and anxiety; F32.A Depression, unspecified; N40.1 Benign prostatic hyperplasia with lower urinary tract symptoms; N13.8 Other obstructive and reflux uropathy; R42 Dizziness and giddiness | CPT/HCPCS: 99215 ==

== ENCOUNTER → 2023-04-11 14:01 | Outpatient (BNVA) | payer MEDICARE, SELFPAY | PROVIDERS: PCP Family Medicine; Referring Provider Family Medicine; Visit Provider Psychiatry & Neurology Neurology | DX: I69.351 Hemiplegia and hemiparesis following cerebral infarction affecting right dominant side (principal); I69.322 Dysarthria following cerebral infarction; I69.391 Dysphagia following cerebral infarction; G30.9 Alzheimer's disease, unspecified; F02.80 Dementia in other diseases classified elsewhere, unspecified severity, without behavioral disturbance, psychotic disturbance, mood disturbance, and anxiety; G20 Parkinson's disease; F39 Unspecified mood [affective] disorder; R42 Dizziness and giddiness | CPT/HCPCS: 99214 ==

== ENCOUNTER → 2023-04-25 14:09 | Outpatient (BNVA) | payer MEDICARE, SELFPAY | PROVIDERS: PCP Family Medicine; Visit Provider Nurse Practitioner Gerontology | DX: N40.1 Benign prostatic hyperplasia with lower urinary tract symptoms (principal); N13.8 Other obstructive and reflux uropathy; I10 Essential (primary) hypertension | CPT/HCPCS: 51798; 99213 ==

== ENCOUNTER → 2023-07-16 14:36 | Outpatient (BNVA) | payer MEDICARE, SELFPAY | PROVIDERS: PCP Family Medicine; Referring Provider Family Medicine; Visit Provider Psychiatry & Neurology Neurology | DX: I69.351 Hemiplegia and hemiparesis following cerebral infarction affecting right dominant side (principal); I69.322 Dysarthria following cerebral infarction; I69.321 Dysphasia following cerebral infarction; N40.1 Benign prostatic hyperplasia with lower urinary tract symptoms; N13.8 Other obstructive and reflux uropathy; F39 Unspecified mood [affective] disorder; R26.89 Other abnormalities of gait and mobility; G20 Parkinson's disease; F03.90 Unspecified dementia, unspecified severity, without behavioral disturbance, psychotic disturbance, mood disturbance, and anxiety; R42 Dizziness and giddiness | CPT/HCPCS: 99214 ==